=== PATIENT | male | born 1935 | race Caucasian/White ===

== ENCOUNTER 2016-06-16 14:48 | Inpatient (IN) | payer MEDICARE, MEDICAID ==
--- NOTE | 2016-06-16 15:10 | ED Physician Chart ---
Chief Complaint/HPI - Patient Information Date Seen:: 06/16/16 Time Seen:: 14:50 Chief Complaint:: Left 2nd Toe redness History of Present Illness:: onset for past several days of left 2nd toe swelling, pain, and erythema; pt has dementia and further hx is unable to be obtained from pt Allergies:: Allergies Allergy/AdvReac Type Severity Reaction Status Date / Time No Known Allergies Allergy Verified 11/29/15 23:28 Vitals:: Vital Signs - 8 hr 06/16/16 14:56 Temp 97.5 F HR 91 RR 19 BP 165/74 O2 Sat % 96 Historian:: Patient Review:: Nurse's Note Reviewed, EMS run form Reviewed, Transfer documents Reviewed Review of Systems - Review of Systems General/Constitutional: No fever, No chills, No weight loss, No weakness, No diaphoresis, No edema, No loss of appetite Skin: Skin lesions, No skin lesions, No rash, No bruising Head: No headache, No light-headedness Eyes: No loss of vision, No pain, No diplopia ENT: No earache, No nasal drainage, No sore throat, No tinnitus Neck: No neck pain, No swelling, No thyromegaly, No stiffness, No mass noted Cardio Vascular: No chest pain, No palpitations, No PND, No orthopnea, No edema Pulmonary: No SOB, No cough, No sputum, No wheezing GI: No nausea, No vomiting, No diarrhea, No pain, No melena, No hematochezia, No constipation, No hematemesis G/U: No dysuria, No frequency, No hematuria Musculoskeletal: No bone or joint pain, No back pain, Muscle pain, No muscle pain Endocrine: No polyuria, No polydipsia Psychiatric: No prior psych history, No depression, No anxiety, No suicidal ideation Hematopoietic: No bruising, No lymphadenopathy Allergic/Immuno: No urticaria, No angioedema Neurological: No syncope, No focal symptoms, Weakness, No weakness, No paresthesia, No headache, No seizure, No dizziness, Confusion, No confusion, No vertigo Past Medical History - Past Medical History Past Medical History: HTN, DM, Dyslipidemia, Dementia Family History: Diabetes Melitus, HTN Social History: Non Smoker, No Alcohol, No Drug Use, Care Facility Psychiatricy History: Dementia Medication: Reviewed Family Medical History - Family Member Mother History Unknown: Yes Ethnicity: Living Status: Still Living Hx Family Cancer: No Hx Family Coronary Artery Disease: No Hx Family Congestive Heart Failure: No Hx Family Hypertension: No Hx Family Stroke: No Hx Family Diabetes: No Hx Family Seizures: No Hx Family Dementia: No Hx Family AIDS: No Hx Family HIV: No Hx Family COPD: No Hx Family Hepatitis: No Hx Family Psychiatric Problems: No Hx Family Tuberculosis: No Physical Exam - Physical Examination General/Constitutional: Awake, Well-developed, well-nourished, Alert, No distress, GCS 15, Non-toxic appearing, Ambulatory Head: Atraumatic Eyes: Lids, conjuctiva normal, PERRL, EOMI Skin: Nl inspection, No rash, No skin lesions, No ecchymosis, Well hydrated, No lymphadenopathy Other Skin comments:: Left 2nd Toe localized cellulitis ENMT: External ears, nose nl, Nasal exam nl, Lips, teeth, gums nl Neck: Nontender, Full ROM w/o pain, No JVD, No nuchal rigidity, No bruit, No mass, No stridor Respiratory: Nl effort/Exclusion, Clear to Auscultation, No Wheeze/Rhonchi/Rales Cardio Vascular: RRR, No murmur, gallop, rubs, NL S1 S2 GI: No tenderness/rebounding/guarding, No organomegaly, No hernia, Normal BS's, Nondistended, No mass/bruits, No McBurney tenderness : No CVA tenderness Extremities: No tenderness or effusion, Full ROM, normal strength in all extremities, No edema, Normal digits & nails Neuro/Psych: Alert/oriented, DTR's symmetric, Normal sensory exam, Normal motor strength, Judgement/insight normal, Mood normal, Normal gait, No focal deficits Other Neuro/Psych comments:: confused with dementia Misc: normal gait, Normal back, No paraspinal tenderness ED Septic Shock - . Is Septic Shock (SBP<90, OR Lactate>4 mmol\L) present?: No - <6hrs of presentation: Vital Signs: Vital Signs - 8 hr 06/16/16 14:56 Temp 97.5 F HR 91 RR 19 BP 165/74 O2 Sat % 96 Assessment of Lungs: Lung CTA bilateral, Ventilator, Decreased BS, Rhonchi, No Rhonchi, Rales, No Rales, Wheezing, No Wheezing, Stridor, No Stridor, Other, Documented in PE Assessment of Heart: RRR, Thrill, No thrill, Gallops, No Gallops, S3, S4, Rub, No Rub, Murmur, No Murmur, Other, Documented in PE Capillary refill evaluation: Capillary refill < 2 secs, Capillary refill > 2 secs, Other, Documented in PE Skin Exam: Warm, Dry, Good Turgur, Poor Turgor, Pallor, No Pallor, Diaphoretic, No Diaphoresis, Mottled, No Mottling, Cyanotic, Edema, No Edema, Erythema, No Erythema, Other, Documented in PE Reassessment (Disposition) - Reassessment Reassessment Condition:: Improved - Diagnosis Diagnosis:: Cellulitis - Aftercare/Follow up Instructions Aftercare/Follow-Up Instructions:: Counseled pt regarding lab results/diagnosis & need follow up, Counseled pt & family regarding lab results/diagnosis & need follow up - Patient Disposition Discharge/Transfer:: Acute Care w/in this hosp Accepting Physician:: Dr. Santiago Time Called:: 1629 Time Responded:: 16:30 Admitted to:: Med/Surg Spoke to:: Dr. Santiago Condition at Disposition:: Stable, Improved
[2016-06-16] MEDS ORDERED: cefTRIAXone 1 GM in Sodium Chloride 0.9% 50 ML IV ONE (15:13)
[2016-06-16 15:37] LABS: % EOSINOPHILS 5.5 % (0.0-5.0); % MONOCYTES 5.5 % (2.0-10.0); HEMATOCRIT 42.5 % (39.0-49.0); HEMOGLOBIN 13.9 gm/dL (12.6-17.4); MEAN CELL VOLUME 81.5 fl (80-99); MEAN CORPUSCULAR HEMOGLOBIN 26.7 pg (27.0-31.0); MEAN CORPUSCULAR HGB CONC 32.8 pg (28.0-36.0); MEAN PLATELET VOLUME 7.9 fl; NEUTROPHILE ABSOLUTE 9.9 Th/cmm (1.8-8.0); PLATELET COUNT 249 Th/cmm (150-400); RED BLOOD COUNT 5.21 Mil/cmm (3.80-5.80); RED CELL DISTRIBUTION WIDTH 13.9 % (11.5-20.0)
[2016-06-16 15:46] LABS: WHITE BLOOD COUNT 13.2 Th/cmm (4.8-10.8)
[2016-06-16 16:05] LABS: ANION GAP 8.9 (7.0-16.0); BUN - UREA NITROGEN 27 mg/dL (7-25); BUN/CREATININE RATIO 15.9; CALCIUM SERUM 9.7 mg/dL (8.6-10.3); CARBON DIOXIDE 25.3 mEq/L (21.0-31.0); CHLORIDE 108 mEq/L (98-107); CREATININE - SERUM 1.7 mg/dL (0.7-1.3); GLUCOSE 105 mg/dL (70-105); POTASSIUM SERUM 5.2 mEq/L (3.5-5.1); SODIUM SERUM 137 mEq/L (136-145)
--- NOTE | 2016-06-16 21:17 | Admit Criteria Form ---
Admit Criteria Forms - Admit Criteria Diagnosis: CELLULITIS Clinical Indications for Admission to Inpatient Care (Place 'X' for any and all applicable criteria): Admission is indicated for ANY ONE of the following(1)(2)(3)(4)(5): [ ]I. Limb-threatening infection [ ]II. High-risk comorbid condition as indicated by ANY ONE of the following: [ ]a) Uncontrolled diabetes (eg, HbA1c greater than 10% (0.1)) [ ]b) Cirrhosis [ ]c) Neutropenia [ ]d) Asplenia [ ]e) Immunosuppression [ ]f) Symptomatic heart failure [ ]III. Failure of outpatient therapy as indicated by ALL of the following: [ ]a) Progression or no improvement after adequate trial (minimum of 48 hours, with longer period for stable lower extremity infection) [ ]b) Adequate antibiotic regimen as indicated by use of ANY ONE of the following: [ ]i) First-generation cephalosporin (e.g., cephalexin) [ ]ii) Antistaphylococcal penicillin (e.g., dicloxacillin) [ ]iii) Penicillin-allergic patient regimen (clindamycin, extended-spectrum fluoroquinolone, or doxycycline) [ ]iv) Resistant organism (eg, methicillin-resistant Staphylococcus aureus) regimen (6) [ ]c) Outpatient intravenous therapy regimen is not appropriate due to ANY ONE of the following. (7)(8)(9)(10): [ ]i) It was tried and was not successful (eg, progression of infection). [ ]ii) It is not available or cannot be arranged in a clinically appropriate time frame (e.g., the next day). [ ]iii) Clinical presentation (eg, acuity of infection, rapidity of progression, confirmed or suspected bacteremia) is judged to require ALL of the following: [ ]1) Immediate initiation of intravenous therapy ( eg, cannot wait for next day) [ ]2) Intensity of patient monitoring and observation (eg, vital sign measurement, checks for infection progression) that cannot be provided at other than inpatient level of care [ ]IV. Mental status changes [ ]V. Bacteremia [ ]. Hemodynamic instability [ ]VII. Suspected necrotizing soft tissue infection (e.g., gas in tissue)(11)( 12) [ ]VIII. Orbital infection (13)(14) [ ]IX. Associated surgical procedure (e.g., abscess drainage, debridement) not amenable to outpatient, emergency department, or observation care [ ]X. Cutaneous gangrene [ ]XI. High fever (temperature greater than 39.5 degrees C (103.1 degrees F) (oral)) not responsive to outpatient, emergency department, or observation care therapy [X]XIII. Inpatient admission required rather than observation care (Also use Cellulitis: Observation Care as appropriate) because of ANY ONE of the following : [ ]a) Periorbital or perineal infection that is severe or worsening [ ]b) Severe pain requiring acute inpatient management [ ]c) IV fluid to replace significant ongoing (e.g., for over 24 hours) losses (greater than 3L/m2 per day) [ ]d) Compartment syndrome monitoring (17) [ ]e) Strict or protective (eg, laminar flow) isolation [ ]f) Urgent debridement or skin grafting [ ]g) Bone or joint debridement [ ]h) Immediate inpatient surgery [X]i) Other condition, treatment or monitoring requiring inpatient admission Extended stay beyond goal length of stay may be needed for (1)(18): [ ]a) Necrotizing soft tissue infection or fasciitis [ ]b) Gram-negative infection [ ]c) Methicillin-resistant Staphylococcal aureus (MRSA) infection [ ]d) Peripheral venous insufficiency with cellulitis [ ]e) Extensive edema [ ]f) Sepsis or continued Hemodynamic instability [ ]g) Continued high fever or mental status change [ ]h) Bacteremia [ ]i) Active serious comorbid conditions ( eg, heart failure, renal insufficiency) The original [facility] [employer] content created by [employer] [facility] [employer] has been revised. The portions of the content which have been revised are identified through the use of italic text or in bold, and [facility] has neither reviewed nor approved the modified material. All other unmodified content is copyright [facility] Please see references footnoted in the original [facility] edition 2016 Admit Criteria Met?: Yes
[2016-06-16] MEDS ORDERED: Pneumococcal Vaccine 0.5 mL Vial IM ONE (22:20)
[2016-06-16] MEDS: INSULIN ASPART, RECOMBINANT 100 UNITS/ML SUBQ SCH (22:45)
[2016-06-16] MEDS ORDERED: Piperacillin Sodium/Tazobact 3.375 gm Vial IV ONE (22:58)
[2016-06-17] MEDS: INSULIN ASPART, RECOMBINANT 100 UNITS/ML SUBQ SCH ×4 (06:48→20:46)
[2016-06-17] MEDS ORDERED: MENTHOL TP PRN (07:25)
[2016-06-17] MEDS ORDERED: METHYL SALICYLATE TP PRN (07:25)
[2016-06-17 07:57] LABS: % BASOPHILS 0.5 % (0.0-2.0)
[2016-06-17 07:59] LABS: % EOSINOPHILS 5.4 % (0.0-5.0); % MONOCYTES 5.9 % (2.0-10.0); % NEUTROPHILS 71.2 % (40.0-80.0); HEMATOCRIT 40.6 % (39.0-49.0); HEMOGLOBIN 13.5 gm/dL (12.6-17.4); MEAN CELL VOLUME 80.5 fl (80-99); MEAN CORPUSCULAR HEMOGLOBIN 26.7 pg (27.0-31.0); MEAN CORPUSCULAR HGB CONC 33.1 pg (28.0-36.0); NEUTROPHILE ABSOLUTE 9.9 Th/cmm (1.8-8.0); PLATELET COUNT 254 Th/cmm (150-400); RED BLOOD COUNT 5.05 Mil/cmm (3.80-5.80); RED CELL DISTRIBUTION WIDTH 13.9 % (11.5-20.0)
[2016-06-17 08:13] LABS: ALB/GLOB RATIO 1.1 (1.0-1.8); ALKALINE PHOSPHATASE 99 U/L (34-104); ANION GAP 4.1 (7.0-16.0); BILIRUBIN,TOTAL 0.4 mg/dL (0.3-1.0); BUN - UREA NITROGEN 28 mg/dL (7-25); BUN/CREATININE RATIO 17.5; CALCIUM SERUM 9.4 mg/dL (8.6-10.3); CARBON DIOXIDE 23.8 mEq/L (21.0-31.0); CHLORIDE 112 mEq/L (98-107); CREATININE - SERUM 1.6 mg/dL (0.7-1.3); GLUCOSE 98 mg/dL (70-105); POTASSIUM SERUM 4.9 mEq/L (3.5-5.1); SGOT 14 U/L (13-39); SGPT/ALT 12 U/L (7-52); SODIUM SERUM 135 mEq/L (136-145)
[2016-06-17 08:16] LABS: WHITE BLOOD COUNT 13.8 Th/cmm (4.8-10.8)
[2016-06-17] MEDS ORDERED: PROSTAT PO SCH (09:00)
[2016-06-17] MEDS: Multivitamin w/ Minerals Tab PO SCH (09:08)
[2016-06-17] MEDS: Vancomycin HCl 1.5 GM in Sodium Chloride 0.9% 500 ML IV SCH (09:13)
--- NOTE | 2016-06-17 13:01 | Diagnostic Imaging Report ---
Bilateral upper extremity arterial Doppler study HISTORY: Peripheral vascular disease COMPARISON: None Technique: Longitudinal and transverse sonographic images of the bilateral upper extremity arteries were obtained with doppler analysis. FINDINGS: Exam of the right side demonstrates mild mild to moderate generalized atherosclerotic vascular disease. Primarily biphasic flow is seen throughout the right upper extremity. No evidence of decreased velocities. Exam of the left side demonstrates mild to moderate generalized atherosclerotic vascular disease. Primarily biphasic flow is noted throughout the left upper extremity. No evidence of decreased velocities. No evidence of occlusion. IMPRESSION: Mild to moderate bilateral upper extremity atherosclerotic vascular disease. No evidence of occlusion.
--- NOTE | 2016-06-17 13:56 | Infectious Disease Prog Note ---
Infectious Disease Subjective - Review of Systems Service Date: 06/17/16 Subjective: [id number] Infectious Disease Objective - Results Result Diagrams: 06/17/16 07:45 06/17/16 07:45 Recent Labs: Laboratory Last Values WBC 13.8 Th/cmm (4.8-10.8) H 06/17/16 07:45 RBC 5.05 Mil/cmm (3.80-5.80) 06/17/16 07:45 Hgb 13.5 gm/dL (12.6-17.4) 06/17/16 07:45 Hct 40.6 % (39.0-49.0) 06/17/16 07:45 MCV 80.5 fl (80-99) 06/17/16 07:45 MCH 26.7 pg (27.0-31.0) L 06/17/16 07:45 MCHC Differential 33.1 pg (28.0-36.0) 06/17/16 07:45 RDW 13.9 % (11.5-20.0) 06/17/16 07:45 Plt Count 254 Th/cmm (150-400) 06/17/16 07:45 MPV 8.0 fl 06/17/16 07:45 Neutrophils % 71.2 % (40.0-80.0) 06/17/16 07:45 Lymphocytes % 17.0 % (20.0-50.0) L 06/17/16 07:45 Monocytes % 5.9 % (2.0-10.0) 06/17/16 07:45 Eosinophils % 5.4 % (0.0-5.0) H 06/17/16 07:45 Basophils % 0.5 % (0.0-2.0) 06/17/16 07:45 Sodium 135 mEq/L (136-145) L 06/17/16 07:45 Potassium 4.9 mEq/L (3.5-5.1) 06/17/16 07:45 Chloride 112 mEq/L (98-107) H 06/17/16 07:45 Carbon Dioxide 23.8 mEq/L (21.0-31.0) 06/17/16 07:45 Anion Gap 4.1 (7.0-16.0) L 06/17/16 07:45 BUN 28 mg/dL (7-25) H 06/17/16 07:45 Creatinine 1.6 mg/dL (0.7-1.3) H 06/17/16 07:45 Est GFR ( Amer) TNP 06/17/16 07:45 Est GFR (Non-Af Amer) TNP 06/17/16 07:45 BUN/Creatinine Ratio 17.5 06/17/16 07:45 Glucose 98 mg/dL (70-105) 06/17/16 07:45 POC Glucose 86 MG/DL (70 - 105) 06/17/16 11:40 Calcium 9.4 mg/dL (8.6-10.3) 06/17/16 07:45 Total Bilirubin 0.4 mg/dL (0.3-1.0) 06/17/16 07:45 AST 14 U/L (13-39) 06/17/16 07:45 ALT 12 U/L (7-52) 06/17/16 07:45 Alkaline Phosphatase 99 U/L (34-104) 06/17/16 07:45 Total Protein 7.6 gm/dL (6.0-8.3) 06/17/16 07:45 Albumin 3.9 gm/dL (4.2-5.5) L 06/17/16 07:45 Globulin 3.7 gm/dL 06/17/16 07:45 Albumin/Globulin Ratio 1.1 (1.0-1.8) 06/17/16 07:45 - Physical Exam Vitals and I&O: Vital Signs Temp 97.7 F 06/17/16 08:00 Pulse 97 06/17/16 09:07 Resp 18 06/17/16 08:00 BP 161/81 06/17/16 09:07 Pulse Ox 97 06/17/16 08:00 Intake & Output 06/16/16 06/17/16 06/17/16 18:59 06:59 18:59 Intake Total 170 Balance 170 Weight (lbs) 81.647 kg Intake: Intake, IV Amount 50 Piperacillin Sodium/ 50 Tazobact 3.375 gm In Sodium Chloride 0.9% 50 ml @ 100 mls/hr IV Q8HR LIUDMILA Rx#:[id number] Oral 120 Other: # Voids 2 Active Medications: Current Medications Acetaminophen (Tylenol) 650 mg PO Q6H PRN PRN Reason: pain Stop: 08/16/16 07:24 Amlodipine Besylate (Norvasc) 5 mg PO DAILY LIUDMILA Stop: 08/16/16 08:59 Last Admin: 06/17/16 09:07 Dose: 5 mg Aspirin (Ecotrin) 81 mg PO DAILY LIUDMILA Stop: 08/16/16 08:59 Last Admin: 06/17/16 09:05 Dose: 81 mg Camphor/Menthol (Bengay Greaseless 10%-15%) 1 appl TP Q4H PRN PRN Reason: RIGHT KNEE PAIN Cholecalciferol (Vitamin D3) 5,000 iu PO DAILY LIUDMILA Stop: 08/16/16 08:59 Last Admin: 06/17/16 09:07 Dose: 5,000 iu Docusate Sodium (Colace) 100 mg PO DAILY LIUDMILA Stop: 08/16/16 08:59 Last Admin: 06/17/16 09:08 Dose: 100 mg Donepezil HCl (Aricept) 10 mg PO HS LIUDMILA Stop: 08/16/16 20:59 Famotidine (Pepcid) 20 mg PO BID LIUDMILA Stop: 08/16/16 08:59 Last Admin: 06/17/16 09:07 Dose: 20 mg Piperacillin Sod/Tazobactam (Sod 3.375 gm/ Sodium Chloride) 50 mls @ 100 mls/ hr IV Q8HR LIUDMILA Stop: 08/15/16 22:00 Last Admin: 06/17/16 06:00 Dose: 100 mls/hr Vancomycin HCl 1.5 gm/ Sodium (Chloride) 500 mls @ 250 mls/hr IV Q24H LIUDMILA Stop: 08/16/16 08:59 Last Admin: 06/17/16 09:13 Dose: 250 mls/hr Insulin Aspart (Novolog) 0 units SUBQ ACHS LIUDMILA PRN Reason: Protocol Stop: 08/15/16 22:14 Last Admin: 06/17/16 11:47 Dose: Not Given Lorazepam (Ativan) 0.5 mg PO Q6H PRN; Protocol PRN Reason: Anxiety Stop: 08/16/16 07:24 Lorazepam (Ativan) 1 mg PO DAILY LIUDMILA PRN Reason: Protocol Stop: 08/16/16 08:59 Memantine (Namenda) 10 mg PO BID LIUDMILA Stop: 08/16/16 08:59 Last Admin: 06/17/16 09:06 Dose: 10 mg Metoprolol Succinate (Toprol Xl) 25 mg PO DAILY [facility] Stop: 08/16/16 08:59 Last Admin: 06/17/16 09:06 Dose: 25 mg Miscellaneous (Vancomycin Iv Per Pharmacy) 1 ea MC PRN PRN PRN Reason: PROTOCOL Stop: 08/16/16 07:27 Quetiapine Fumarate (Seroquel) 50 mg PO DAILY LIUDMILA PRN Reason: Protocol Stop: 08/16/16 08:59 Quetiapine Fumarate (Seroquel) 100 mg PO HS LIUDMILA PRN Reason: Protocol Stop: 08/16/16 20:59 Simvastatin (Zocor) 10 mg PO HS LIUDMILA PRN Reason: Protocol Stop: 08/16/16 20:59 Sodium Chloride (Saline Flush) 10 ml IV QSHIFT [facility] Stop: 08/15/16 22:00 Last Admin: 06/17/16 09:08 Dose: 10 ml - Procedures Procedures: Procedures Procedure Code Date COLONOSCOPY AND BIOPSY 07360 12/02/14 EGD BIOPSY SINGLE/MULTIPLE 10493 12/02/14 EXCISION OF DUODENUM, ENDO, DIAGN [id number] 12/02/14 EXCISION OF ESOPHAGUS, ENDO, DIAGN [id number] 12/02/14 EXCISION OF RECTUM, ENDO, DIAGN [id number] 12/02/14 Infectious Disease Assmt/Plan - Problem List Patient Problems: All Active Problems LEFT #2 TOE ABRASION WITH REDNESS/SWELLI (Acute) Abdominal pain (Acute) R10.9 Hypertension (Acute) I10 Psychosis (Acute) F29 Rectal bleeding (Acute) K62.5 Stroke (Acute) I63.9 Nutritional Asmnt/Malnutr-PDOC - Dietary Evaluation Malnutrition Findings (Please click <Entered> for more info): Nutritional Asmnt/Malnutrition Start: 06/17/16 11: 05 Text: Status: Complete Freq: Document 06/17/16 11:05 GSUN (Rec: 06/17/16 11:20 [id number]) Nutritional Asmnt/Malnutrition Patient General Information Diagnosis ER: Cellulitis Pertinent Medical Hx/Surgical Hx ER: HTN, DM, dyslipidemia, dementia Subjective Information 80 year old male, admitted due to swollen erythema to toe. Ultrasound upper extremities during visit. Spoek to RN, RN stated pt ate 100% breakfast, good appetite, no difficulties noted. Clarified diet order [id number] vs. 1800kcal ADA with RN. Pt appeared more than 180lb. Current Diet Order/ Nutrition Support [id number], 1800kcal ADA Pertinent Medications Vitamin D3, Colace, Pepcid, Novolog, Vancomycin, Seroquel Pertinent Labs 06/16: potassium 5.2H, BUN 27H, creaitnine 1.7H 06/17: BUN 28H, creatiine 1.6H Nutritional Hx/Data Height 1.78 m Height (Calculated Centimeters) 177.8 Current Weight (lbs) 81.647 kg Weight (Calculated Kilograms) 81.6 Weight (Calculated Grams) 60640.6 [place] Body Weight 166lb/75.5kg Weight Status Approriate GI Symptoms Food Allergies No Skin Integrity/Comment: Martin 15. Skin intact. Current %PO Good (75-100%) Estimated Nutritional Goals Calories/Kcals/Kg IBW 166lb/75.5kg Kcals Calculated 1888-2265kcal (25-30kcal/kg) Protein g/kg: IBW Protein Calculated 60-76g (0.8-1g/kg, monitor renal lab) Fluid: ml 1888-2265ml (1ml/kcal) Nutritional Problem 1. Problem Problem Inadequate carbohdyrate intake related to Etiology estimated nutritional needs aeb Signs/Symptoms: [id number] is inadequate to meet 100% of estimated nutritional needs Intervention/Recommendation Comments 1. Recommend [id number] instead of [id number], current diet order is inadeaute provide to meet 100% of estimated nutritional needs. 2. Monitor renal labs, low sodium diet if needed. Expected Outcomes/Goals Expected Outcomes/Goals 1. PO intake to meet at least 75% of esimtated nutritional needs.
--- NOTE | 2016-06-17 15:32 | Diagnostic Imaging Report ---
Left lower extremity arterial Doppler study HISTORY: Pain COMPARISON: None Technique: Longitudinal and transverse sonographic images of the left lower extremity arteries were obtained with doppler analysis. FINDINGS: Exam of the left side demonstrates generalized atherosclerotic vascular disease with generalized loss of the triphasic flow noted. Decreased velocity is seen distally along the tibialis anterior and tibialis posterior arteries most decreased in the tibialis anterior artery at 21 cm/second. Left ankle-brachial index is 0.56. IMPRESSION: Findings suggestive of diffuse left lower extremity atherosclerotic vascular disease. No sonographic evidence of occlusion. If indicated, CT angiogram the left lower extremity may also be obtained for further assessment. Left ankle-brachial index is 0.56.
--- NOTE | 2016-06-17 20:53 | History & Physical ---
ADMIT DATE: 06/17/2016 PATIENT IDENTIFICATION: This is an 80-year-old male. CHIEF COMPLAINT: Sent the patient to Emergency Room for evaluation of second left toe open wound and cellulitis. HISTORY OF PRESENT ILLNESS: This is an 80-year-old [place] male who resides at [facility] under my care along with the psychiatrist, Dr. Carrasco and associates, who has medical problems of diabetes, hypertension, hyperlipidemia, DJD, and psychotic disorder. During his regular evaluation, it was noted that the patient's left second toe had an open wound, which was treated conservatively, but subsequently, his wound got bigger and it became more painful, and the patient was agitated. The patient was sent to Emergency Room. The patient was seen by Emergency Room MD and has been advised to be admitted for diagnosis of left ____ second toe cellulitis and infected open wound. The patient has dementia and does not provide a meaningful history. PAST MEDICAL HISTORY: Remarkable for dementia, hypertension, hyperlipidemia, DJD, psychotic disorder, and diet-controlled diabetes mellitus. MEDICATION: List has been reviewed and reconciled appropriately. ALLERGIES: The patient is not allergic to medication. SOCIAL HISTORY: He lives in a retirement. No smoking cigarette, alcohol or drug use. FAMILY MEDICAL HISTORY: Unavailable. REVIEW OF SYSTEMS: Unable to obtain meaningful history from the patient. PHYSICAL EXAMINATION: GENERAL: The patient is alert, awake, lying in the bed, follow 1-step command without any acute distress. VITAL SIGNS: Temperature 98.2, pulse is 97, respiratory rate is 18, and blood pressure 160/80. HEENT: Normocephalic and atraumatic. Extraocular muscles are intact. Tongue was pink and coated. Poor dentition is noted. No oral lesions, no exudate. NECK: Supple. No JVD. No hepatojugular reflex. No lymphadenopathy, thyromegaly, or carotid bruit. HEART: Both heart sounds are regular. No S3, no S4, and no murmur. CHEST/LUNGS: Equal in expansion, no wheezing, no crackles. ABDOMEN: Soft. No guarding. No rigidity. Liver and spleen not palpable. No palpable mass. EXTREMITIES: Remarkable for peripheral pulses +1. No calf tenderness noted. There is a left second toe swelling noted with significant amount of erythema, and open wound noted. BACK: No crackles and scoliosis. NEUROLOGIC: Alert, awake, follows commands. There was otherwise gross dementia noted and moving his upper and lower extremities. AVAILABLE DIAGNOSTIC DATA: White count of 13.2, hemoglobin 13.9, platelet count of 249,000. BUN and creatinine are 27 and 1.7, potassium 5.2, chloride 108, sodium 137, glucose of 105 noted. Blood cultures were negative. Lower extremity arterial Doppler studies were also ordered by me prior to coming to see him, which did reveal the patient had diffuse left lower extremity atherosclerotic vascular disease, but no significant stenosis noted. Left ankle-brachial index was 0.56. CLINICAL IMPRESSION: 1. Left second toe open wound and cellulitis. 2. Peripheral vascular disease. 3. Acute kidney injury. 4. Hyperkalemia. 5. Hypertension. 6. Hyperlipidemia. 7. Degenerative joint disease. 8. Alzheimer's type dementia. 9. Diet-controlled diabetes mellitus. PLAN: Admit this patient to Med/Surg floor for now. IV antibiotic will be started. Infectious Disease consultation was requested. Appropriate home medicine will be given. IV fluid will be given. Followup lab will be done, and we will follow the consult recommendations. Care plan has been reviewed and discussed with the patient and staff. JOB# [id number]
--- NOTE | 2016-06-17 23:11 | Consultation ---
DATE OF CONSULTATION: 06/17/2016 REFERRING PHYSICIAN: Dr. Santiago. REASON FOR CONSULTATION: Leukocytosis and the left toe cellulitis. HISTORY OF PRESENT ILLNESS: The patient is an 86-year-old male with a past medical history of diabetes mellitus type 2, hypertension, dyslipidemia, dementia, brought to the ER yesterday for painful swelling and redness of second toe of the left foot. On initial evaluation, the patient's temperature 97.5 degree F and WBC count was 13,000. The patient was started on vancomycin and Zosyn and ID consult was called for further antibiotic management. PAST MEDICAL HISTORY: Includes diabetes mellitus type 2, hypertension, dementia, dyslipidemia. FAMILY HISTORY: Diabetes mellitus, hypertension. SOCIAL HISTORY: The patient is nonsmoker. Has no history of alcohol, no history of drug use. The patient lives at care facility. PSYCHIATRIC HISTORY: Dementia. ALLERGIES: NKDA. MEDICATIONS: Per medication reconciliation sheet. Antibiotic borges, the patient is on vancomycin and Zosyn. REVIEW OF SYSTEMS: GENERAL: The patient denies any fever or chills. HEENT: The patient denies any diplopia, photophobia, sore throat. RESPIRATORY: Denies any cough or shortness of breath. CARDIOVASCULAR: Denies any chest pain or palpitation. GASTROINTESTINAL: The patient denies any nausea, vomiting, diarrhea or constipation. GENITOURINARY: The patient denies any dysuria. The patient denies any hematuria. CENTRAL NERVOUS SYSTEM: No headache, no dizziness, no focal weakness. No seizure episode. SKIN: The patient has swelling, redness of, and tenderness of the second toe of the left foot. PHYSICAL EXAMINATION: VITAL SIGNS: Current, show temperature 97.7, pulse 97, respirations 18, blood pressure 161/81. GENERAL: The patient is comfortable, lying in the bed, not in acute distress. HEENT: Head is normocephalic, atraumatic. Oral cavity moist, pink tongue. Eyes: No pallor, no icterus. PERRLA, EOMI. NECK: Supple, no JVD, no carotid bruit. Trachea in midline. CHEST: Bilateral breath sounds. No crackles or wheezing. CARDIOVASCULAR: S1, S2 within normal limits. Regular rhythm. No murmur, no gallop. ABDOMEN: Soft, nontender, nondistended. Bowel sounds present. EXTREMITIES: No cyanosis, no clubbing, no edema. The patient has swelling of the left forefoot with associated redness and tender swelling of the left second toe. At the dorsal aspect, the patient has healed wound. CENTRAL NERVOUS SYSTEM: Alert, awake, oriented x 3. LABORATORY DATA: Current lab shows WBC count is 13,800, hemoglobin is 13.5, hematocrit 40.6, platelets are 254,000, neutrophil is 71.2%. Sodium 135, potassium 4.9, chloride 112, bicarbonate is 24, BUN is 28, creatinine 1.6, glucose is 88. Blood cultures so far negative. Recommendation: continue on vancomycin and Zosyn. IMPRESSION: 1. Leukocytosis, suspect sepsis. 2. Left foot and second toe cellulitis. 3. Diabetes mellitus type 2. 4. Hypertension. 5. Dementia. Thank you, Dr. Mario Alberto Santiago, for involving me in taking care of this patient. JOB# [id number] MTDD
[2016-06-18] MEDS: INSULIN ASPART, RECOMBINANT 100 UNITS/ML SUBQ SCH ×3 (06:36→17:13)
[2016-06-18] MEDS: Multivitamin w/ Minerals Tab PO SCH (09:15)
[2016-06-18] MEDS: Vancomycin HCl 1.5 GM in Sodium Chloride 0.9% 500 ML IV SCH (09:36)
--- NOTE | 2016-06-18 12:43 | Infectious Disease Prog Note ---
Infectious Disease Subjective - Review of Systems Service Date: 06/18/16 Subjective: Patient is refusing IV access. Infectious Disease Objective - Results Result Diagrams: 06/17/16 07:45 06/17/16 07:45 Recent Labs: Laboratory Last Values WBC 13.8 Th/cmm (4.8-10.8) H 06/17/16 07:45 RBC 5.05 Mil/cmm (3.80-5.80) 06/17/16 07:45 Hgb 13.5 gm/dL (12.6-17.4) 06/17/16 07:45 Hct 40.6 % (39.0-49.0) 06/17/16 07:45 MCV 80.5 fl (80-99) 06/17/16 07:45 MCH 26.7 pg (27.0-31.0) L 06/17/16 07:45 MCHC Differential 33.1 pg (28.0-36.0) 06/17/16 07:45 RDW 13.9 % (11.5-20.0) 06/17/16 07:45 Plt Count 254 Th/cmm (150-400) 06/17/16 07:45 MPV 8.0 fl 06/17/16 07:45 Neutrophils % 71.2 % (40.0-80.0) 06/17/16 07:45 Lymphocytes % 17.0 % (20.0-50.0) L 06/17/16 07:45 Monocytes % 5.9 % (2.0-10.0) 06/17/16 07:45 Eosinophils % 5.4 % (0.0-5.0) H 06/17/16 07:45 Basophils % 0.5 % (0.0-2.0) 06/17/16 07:45 Sodium 135 mEq/L (136-145) L 06/17/16 07:45 Potassium 4.9 mEq/L (3.5-5.1) 06/17/16 07:45 Chloride 112 mEq/L (98-107) H 06/17/16 07:45 Carbon Dioxide 23.8 mEq/L (21.0-31.0) 06/17/16 07:45 Anion Gap 4.1 (7.0-16.0) L 06/17/16 07:45 BUN 28 mg/dL (7-25) H 06/17/16 07:45 Creatinine 1.6 mg/dL (0.7-1.3) H 06/17/16 07:45 Est GFR ( Amer) TNP 06/17/16 07:45 Est GFR (Non-Af Amer) TNP 06/17/16 07:45 BUN/Creatinine Ratio 17.5 06/17/16 07:45 Glucose 98 mg/dL (70-105) 06/17/16 07:45 POC Glucose 122 MG/DL (70 - 105) H 06/18/16 06:34 Calcium 9.4 mg/dL (8.6-10.3) 06/17/16 07:45 Total Bilirubin 0.4 mg/dL (0.3-1.0) 06/17/16 07:45 AST 14 U/L (13-39) 06/17/16 07:45 ALT 12 U/L (7-52) 06/17/16 07:45 Alkaline Phosphatase 99 U/L (34-104) 06/17/16 07:45 Total Protein 7.6 gm/dL (6.0-8.3) 06/17/16 07:45 Albumin 3.9 gm/dL (4.2-5.5) L 06/17/16 07:45 Globulin 3.7 gm/dL 06/17/16 07:45 Albumin/Globulin Ratio 1.1 (1.0-1.8) 06/17/16 07:45 - Physical Exam Vitals and I&O: Vital Signs Temp 97.6 F 06/18/16 12:00 Pulse 81 06/18/16 12:00 Resp 18 06/18/16 12:00 BP 125/59 06/18/16 12:00 Pulse Ox 96 06/18/16 12:00 Intake & Output 06/17/16 06/18/16 06/18/16 18:59 06:59 18:59 Intake Total 1000 50 Balance 1000 50 Intake: Intake, IV Amount 550 50 Piperacillin Sodium/ 50 50 Tazobact 3.375 gm In Sodium Chloride 0.9% 50 ml @ 100 mls/hr IV Q8HR [facility] Rx#:[id number] Vancomycin HCl 1.5 gm In 500 Sodium Chloride 0.9% 500 ml @ 250 mls/hr IV Q24H [facility]UD[facility] Rx#:[id number] Oral 450 Other: # Voids 2 # Bowel Movements 1 Active Medications: Current Medications Acetaminophen (Tylenol) 650 mg PO Q6H PRN PRN Reason: pain Stop: 08/16/16 07:24 Last Admin: 06/17/16 20:36 Dose: 650 mg Amlodipine Besylate (Norvasc) 5 mg PO DAILY [facility] Stop: 08/16/16 08:59 Last Admin: 06/18/16 09:15 Dose: 5 mg Aspirin (Ecotrin) 81 mg PO DAILY [facility] Stop: 08/16/16 08:59 Last Admin: 06/18/16 09:17 Dose: 81 mg Camphor/Menthol (Bengay Greaseless 10%-15%) 1 appl TP Q4H PRN PRN Reason: RIGHT KNEE PAIN Cholecalciferol (Vitamin D3) 5,000 iu PO DAILY [facility] Stop: 08/16/16 08:59 Last Admin: 06/18/16 09:16 Dose: 5,000 iu Clonidine HCl (Catapres) 0.1 mg PO Q8HR PRN PRN Reason: systolic bp above 160 Stop: 08/16/16 17:38 Last Admin: 06/17/16 18:19 Dose: 0.1 mg Docusate Sodium (Colace) 100 mg PO DAILY [facility] Stop: 08/16/16 08:59 Last Admin: 06/18/16 09:17 Dose: 100 mg Donepezil HCl (Aricept) 10 mg PO HS [facility] Stop: 08/16/16 20:59 Last Admin: 06/17/16 20:37 Dose: 10 mg Famotidine (Pepcid) 20 mg PO BID [facility] Stop: 08/16/16 08:59 Last Admin: 06/18/16 09:17 Dose: 20 mg Piperacillin Sod/Tazobactam (Sod 3.375 gm/ Sodium Chloride) 50 mls @ 100 mls/ hr IV Q8HR [facility] Stop: 08/15/16 22:00 Last Admin: 06/18/16 04:49 Dose: 100 mls/hr Vancomycin HCl 1.5 gm/ Sodium (Chloride) 500 mls @ 250 mls/hr IV Q24H [facility] Stop: 08/16/16 08:59 Last Admin: 06/18/16 09:36 Dose: Not Given Insulin Aspart (Novolog) 0 units SUBQ ACHS [facility] PRN Reason: Protocol Stop: 08/15/16 22:14 Last Admin: 06/18/16 10:54 Dose: Not Given Lorazepam (Ativan) 0.5 mg PO Q6H PRN; Protocol PRN Reason: Anxiety Stop: 08/16/16 07:24 Lorazepam (Ativan) 1 mg PO DAILY [facility] PRN Reason: Protocol Stop: 08/16/16 08:59 Last Admin: 06/18/16 09:15 Dose: 1 mg Memantine (Namenda) 10 mg PO BID [facility] Stop: 08/16/16 08:59 Last Admin: 06/18/16 09:15 Dose: 10 mg Metoprolol Succinate (Toprol Xl) 25 mg PO DAILY [facility] Stop: 08/16/16 08:59 Last Admin: 06/18/16 09:17 Dose: 25 mg Miscellaneous (Vancomycin Iv Per Pharmacy) 1 ea MC PRN PRN PRN Reason: PROTOCOL Stop: 08/16/16 07:27 Quetiapine Fumarate (Seroquel) 50 mg PO DAILY [facility] PRN Reason: Protocol Stop: 08/16/16 08:59 Last Admin: 06/18/16 09:17 Dose: 50 mg Quetiapine Fumarate (Seroquel) 100 mg PO HS [facility] PRN Reason: Protocol Stop: 08/16/16 20:59 Last Admin: 06/17/16 20:37 Dose: 100 mg Simvastatin (Zocor) 10 mg PO HS [facility] PRN Reason: Protocol Stop: 08/16/16 20:59 Last Admin: 06/17/16 20:37 Dose: 10 mg Sodium Chloride (Saline Flush) 10 ml IV QSHIFT [facility] Stop: 08/15/16 22:00 Last Admin: 06/18/16 09:38 Dose: Not Given General: no acute distress, well developed, well nourished HEENT: atraumatic, normocephalic, PERRLA, EOMI Neck: supple Cardiovascular: S1S2, regular Lungs: clear to auscultation bilaterally, clear to percussion Abdomen: soft, no tender, no distended Extremities: other (2nd left foot swelling is imrpoving), no cyanosis, no clubbing, no edema Neurological: awake, alert, oriented, CN 2-12 intact - Procedures Procedures: Procedures Procedure Code Date COLONOSCOPY AND BIOPSY 90756 12/02/14 EGD BIOPSY SINGLE/MULTIPLE 78583 12/02/14 EXCISION OF DUODENUM, ENDO, DIAGN [id number] 12/02/14 EXCISION OF ESOPHAGUS, ENDO, DIAGN [id number] 12/02/14 EXCISION OF RECTUM, ENDO, DIAGN [id number] 12/02/14 Infectious Disease Assmt/Plan - Problem List Patient Problems: All Active Problems LEFT #2 TOE ABRASION WITH REDNESS/SWELLI (Acute) Abdominal pain (Acute) R10.9 Hypertension (Acute) I10 Psychosis (Acute) F29 Rectal bleeding (Acute) K62.5 Stroke (Acute) I63.9 - Assessment Assessment: 1. cellulitis of the left foot. 2. PAD. 3. Dementia. 4. Non compliance. - Plan Plan: will change antibiotics to po clinda and levaquin for 2 weeks, as patient is refusing IV antibiotics. Nutritional Asmnt/Malnutr-PDOC - Dietary Evaluation Malnutrition Findings (Please click <Entered> for more info): Nutritional Asmnt/Malnutrition Start: 06/17/16 11: 05 Text: Status: Complete Freq: Document 06/17/16 11:05 UN (Rec: 06/17/16 11:20 [facility] [id number]) Nutritional Asmnt/Malnutrition Patient General Information Diagnosis ER: Cellulitis Pertinent Medical Hx/Surgical Hx ER: HTN, DM, dyslipidemia, dementia Subjective Information 80 year old male, admitted due to swollen erythema to toe. Ultrasound upper extremities during visit. Spoek to RN, RN stated pt ate 100% breakfast, good appetite, no difficulties noted. Clarified diet order [id number] vs. 1800kcal ADA with RN. Pt appeared more than 180lb. Current Diet Order/ Nutrition Support [id number], 1800kcal ADA Pertinent Medications Vitamin D3, Colace, Pepcid, Novolog, Vancomycin, Seroquel Pertinent Labs 06/16: potassium 5.2H, BUN 27H, creaitnine 1.7H 06/17: BUN 28H, creatiine 1.6H Nutritional Hx/Data Height 1.78 m Height (Calculated Centimeters) 177.8 Current Weight (lbs) 81.647 kg Weight (Calculated Kilograms) 81.6 Weight (Calculated Grams) 60623.6 [place] Body Weight 166lb/75.5kg Weight Status Approriate GI Symptoms Food Allergies No Skin Integrity/Comment: Martin 15. Skin intact. Current %PO Good (75-100%) Estimated Nutritional Goals Calories/Kcals/Kg IBW 166lb/75.5kg Kcals Calculated 1888-2265kcal (25-30kcal/kg) Protein g/kg: IBW Protein Calculated 60-76g (0.8-1g/kg, monitor renal lab) Fluid: ml 1888-2265ml (1ml/kcal) Nutritional Problem 1. Problem Problem Inadequate carbohdyrate intake related to Etiology estimated nutritional needs aeb Signs/Symptoms: [id number] is inadequate to meet 100% of estimated nutritional needs Intervention/Recommendation Comments 1. Recommend [id number] instead of [id number], current diet order is inadeaute provide to meet 100% of estimated nutritional needs. 2. Monitor renal labs, low sodium diet if needed. Expected Outcomes/Goals Expected Outcomes/Goals 1. PO intake to meet at least 75% of esimtated nutritional needs.
--- NOTE | 2016-06-19 04:12 | Consultation ---
DATE OF CONSULTATION: 06/18/2016 IDENTIFYING INFORMATION: The patient is an 80-year-old male. REASON FOR CONSULTATION: The patient has been agitated, throwing items, uncooperative. The patient himself was a poor historian. He was admitted because of infection. He was unable to tell me the reason he is here. He knew, however, this is June 2016. He reports he is and has three adult girls. He denies any intent to harm himself or anybody. He denies any hallucination or paranoia; however, he is not a reliable historian. PAST PSYCHIATRIC HISTORY: He reports that he was seen by a psychiatrist before; however, he was unable to explain why. He was unable to tell me if he tried to harm himself in the past. He has been on Aricept 10 mg a day, Namenda 10 mg twice a day, and Seroquel 50 mg in the morning and 100 mg at bedtime. MEDICAL HISTORY: Deferred to the medical doctor. FAMILY AND SOCIAL HISTORY: The patient reported he is . He has three adult girls. He has high school education, unable to tell me what job he did. He said he came from group home, but when I checked with the staff, nobody was able to tell me exactly where he came from. Some people say, he came from home. He was unable to give me further information. MENTAL STATUS EXAMINATION: The patient is appropriately dressed, not well groomed. He was alert. He believes he is 81, in reality he is 80. He knew that this is June and that is 2016, but not the exact date. He believes this is Wednesday. He denies any intent to harm himself or anybody or any hallucinations, but he was acting aggressive. He asked the staff for a paper and then threw a pen at them. His long memory is good. He knows his age roughly. Recent memory is poor. He does not know why he is here. Insight and judgment impaired. IMPRESSION: AXIS I: Psychosis, not otherwise specified, dementia. MEDICAL DIAGNOSES: Refer to Dr. Santiago. I would recommend to the patient ____ to transfer to [facility] when medically cleared. Thank you very much for allowing me to participate in the care of this most interesting gentleman. JOB# [id number]
== END 2016-06-18 17:50 | DRG 602 ==
LOC: ER 14:48 → MSI 18:05
PROVIDERS: ADMIT Internal Medicine; ATTEND Internal Medicine
DX: L03.032 Cellulitis of left toe (principal); N17.0 Acute kidney failure with tubular necrosis; N17.9 Acute kidney failure, unspecified; E87.5 Hyperkalemia; E11.51 Type 2 diabetes mellitus with diabetic peripheral angiopathy without gangrene; S91.109A Unspecified open wound of unspecified toe(s) without damage to nail, initial encounter; G30.9 Alzheimer's disease, unspecified; F02.80 Dementia in other diseases classified elsewhere, unspecified severity, without behavioral disturbance, psychotic disturbance, mood disturbance, and anxiety; I10 Essential (primary) hypertension; E78.5 Hyperlipidemia, unspecified; M19.90 Unspecified osteoarthritis, unspecified site; F29 Unspecified psychosis not due to a substance or known physiological condition; N40.0 Benign prostatic hyperplasia without lower urinary tract symptoms; Z83.3 Family history of diabetes mellitus; Z82.49 Family history of ischemic heart disease and other diseases of the circulatory system; Z91.14 Patient's other noncompliance with medication regimen
CPT/HCPCS: 36415-UA; 80048-TC; 80053-TC; 82948-90; 85025-TC; 93926-LT-TC; 93930-50-TC; J0696; J1815; J2543; J3370; J7040; Z7610

== ENCOUNTER 2016-06-18 17:55 | Inpatient (IN) | payer MEDICARE, MEDICAID ==
[2016-06-18] MEDS ORDERED: Haloperidol Lactate 5 mg/mL 1mL Vial ONE (18:23)
[2016-06-18] MEDS ORDERED: Haloperidol Lactate 5 mg/mL 1mL Vial IM ONE (18:24)
[2016-06-18 18:58] VITALS: BP 137/74
[2016-06-18] MEDS ORDERED: MENTHOL TP PRN ×2 (19:58→20:56)
[2016-06-18] MEDS ORDERED: METHYL SALICYLATE TP PRN (20:56)
[2016-06-18] MEDS ORDERED: Non-Formulary Item 1 EA (Melatonin [Melatonin] 3 MG) PO SCH (21:00)
[2016-06-18] MEDS: INSULIN ASPART, RECOMBINANT 100 UNITS/ML SUBQ SCH (21:00)
[2016-06-19] MEDS: INSULIN ASPART, RECOMBINANT 100 UNITS/ML SUBQ SCH ×4 (06:30→20:52)
[2016-06-19] MEDS ORDERED: PROSTAT PO SCH (09:00)
--- NOTE | 2016-06-19 14:50 | History & Physical ---
ADMIT DATE: 06/18/2016 CHIEF COMPLAINT: "They brought me here." HISTORY OF PRESENT ILLNESS: An 80-year-old -[place] male admitted by me to medical site for evaluation and management of his left second toe open wound and cellulitis. The patient was getting other medications for his underlying illness. The patient was noted to have an acute onset of agitation and aggressive behavior. The patient was refusing medications as well. The patient was seen by psychiatrist and recommended the patient should be admitted to Geriatric Psychiatric Unit for further management. PAST MEDICAL HISTORY: Remarkable for: 1. Dementia. 2. Psychotic disorder. 3. Hypertension. 4. Hyperlipidemia. 5. DJD. 6. Diet controlled diabetes mellitus. MEDICATIONS AT HOME: List has been reviewed and reconciled appropriately. ALLERGIES: None. SOCIAL HISTORY: Lives in [place] [facility] [place]. No smoking cigarette, alcohol or drug use. FAMILY MEDICAL HISTORY: Negative for diabetes and hypertension. REVIEW OF SYSTEMS: A 14-point review of system, ____ all review of systems as per patient are negative. PHYSICAL EXAMINATION: GENERAL: The patient is alert, awake, lying in the bed without any acute distress. VITAL SIGNS: Temperature 97, pulse is 100, respiratory rate 18, blood pressure is 136/76. SKIN: Warm to touch. HEENT: Normocephalic, atraumatic. Extraocular muscles are intact. Tongue was pink and coated. Poor dentition noted. No oral lesions. NECK: Supple, no JVD, no hepatojugular reflux. No lymphadenopathy, thyromegaly or carotid bruit. HEART: Both heart sounds are regular. CHEST: Lung equal in expansion, no wheezing, no crackles. ABDOMEN: Soft. No guarding, no rigidity. Liver, spleen not palpable. No palpable mass. Bowel sounds are present. EXTREMITIES: No edema. Peripheral pulses +1. Left second toe has swelling, which is decreased in size. The open wound is slightly ____ noted. No cyanosis, no clubbing. AVAILABLE LABORATORY DATA: MAR has been reviewed. CLINICAL IMPRESSION: 1. Left second toe cellulitis and open wound, resolving. 2. Peripheral vascular disease. 3. Psychotic disorder. 4. Hypertension. 5 Hyperlipidemia. 6 Degenerative joint disease. PLAN: 1. Admit this patient to the psych unit. 2. Continue medical management for the medical illness. 3. Fall precautions. 4. Wound care. 5. General nursing care. 6. We will continue to follow this patient at the Geropsych Unit. 7. PO antibiotic to be continued as well. [facility]# [id number]
[2016-06-19] MEDS: Multivitamin w/ Minerals Tab PO SCH (18:04)
--- NOTE | 2016-06-20 06:27 | Progress Notes ---
DATE: 06/19/2016 IDENTIFYING INFORMATION: The patient is an 80-year-old male. REASON FOR ADMISSION: The patient was transferred from the medical floor because of aggressive behavior. HISTORY OF PRESENT ILLNESS: I have seen the patient yesterday and I counseled over on the medical floor. The staff told me that he was acting aggressive. He was hard to redirect. When I talked to the patient myself, he was able to tell me his age as being 81 and he knew this is June 2016. However, he was unable to be more specific about other details. He agrees that he was seen by Psychiatry, unable to give details. He was diagnosed with dementia. He denies that he wanted to harm himself or anyone. However, the staff reported he was very aggressive, needing redirection, and was transferred to the Psychiatric Unit. PAST PSYCHIATRIC HISTORY: Some mental illness, he is not aware of. MEDICAL HISTORY: He has no known drug allergies. He has been on Aricept 10 mg at bedtime, clindamycin, aspirin, and Pepcid. He was given Haldol yesterday because of agitation. He is on Levaquin and Namenda 10 mg twice a day, Seroquel 50 mg daily and 100 mg at bedtime, simvastatin, amlodipine, clonidine, and diphenhydramine. FAMILY AND SOCIAL HISTORY: The patient is . He has three girls, however, unable to tell me the ages. He was unable to tell me what he did for living. He said he used to drink alcohol, but not recently. He was unable to tell me if there is any family psychotic disorder or substance abuse and how far he went in school and what he did for living. MENTAL STATUS EXAMINATION: The patient was appropriately dressed, not very well groomed. He was easily agitated. He was, however, able to remember me. He was alert. He knew this is June,, not sure of the exact date. He was able to tell me his date of . He seems to have short-term memory, unable to remember events that I am coming here. He seems to have his long-term ____ date of , roughly his age. He has been acting agitated, irritable; however, he denies any auditory or visual hallucination; however, he is an unreliable historian. His insight and judgment are impaired. IMPRESSION: AXIS I: Psychosis, not otherwise specified, dementia. MEDICAL DIAGNOSES: Hypertension, diabetes mellitus, and hyperlipidemia. His assets he is accepting treatment and negative poor coping skills and judgment. The patient will be started back on his medication. We will adjust medication as needed. We will do group therapy, milieu therapy, and individual therapy. ESTIMATED LENGTH OF STAY: 6-7 days. DISCHARGE CRITERIA: Decreased psychosis, agitation. After discharge, outpatient. JOB# [id number]
[2016-06-20] MEDS: INSULIN ASPART, RECOMBINANT 100 UNITS/ML SUBQ SCH ×4 (06:40→20:07)
[2016-06-20] MEDS: Multivitamin w/ Minerals Tab PO SCH (08:28)
--- NOTE | 2016-06-20 23:50 | Progress Notes ---
DATE: 06/20/2016 Case was discussed with staff of the patient, reviewed records. Covering for Dr. Carrasco. The patient continues to have episodes of agitation and irritability. He is demented, confused and unable to make safe plan for self care. He has been so far compliant with the medication with no side effects, no sedation, no nausea and no extrapyramidal symptoms. We will continue to work with the patient in group therapy, milieu therapy and adjust medication as needed. JOB# [id number]
[2016-06-21] MEDS: INSULIN ASPART, RECOMBINANT 100 UNITS/ML SUBQ SCH ×4 (06:35→20:51)
[2016-06-21] MEDS: Multivitamin w/ Minerals Tab PO SCH (08:16)
--- NOTE | 2016-06-22 04:52 | Progress Notes ---
DATE: 06/21/2016 Case was discussed with staff of the patient. The patient continues to be confused, easily agitated, demented, unable to participate in a meaningful conversation. We will make safe plan for self-care. He continues to have poor insight, needing redirection. No side effects with the medication, no sedation, no nausea and no extrapyramidal symptoms and we will continue to work with the patient in group therapy, milieu therapy and adjust the medication as needed. JOB# [id number]
[2016-06-22] MEDS: INSULIN ASPART, RECOMBINANT 100 UNITS/ML SUBQ SCH ×3 (06:45→20:52)
[2016-06-22] MEDS: Multivitamin w/ Minerals Tab PO SCH (08:40)
--- NOTE | 2016-06-22 09:31 | General Progress Note ---
Subjective - Review of Systems Subjective: PATIENT IS SEEN AND EXAMINED. UNABLE TO GET MEANINGFUL HISTORY. CHART REVIEWED. DISCUSSED WITH STAFF RE:THEIR CONCERNS. Objective - Results Recent Labs: Laboratory Last Values POC Glucose 88 MG/DL (70 - 105) 06/22/16 06:18 - Physical Exam Vitals and I&O: Vital Signs Temp 98.1 F 06/22/16 06:04 Pulse 75 06/22/16 08:41 Resp 18 06/22/16 06:04 BP 167/67 06/22/16 08:41 Pulse Ox 96 06/22/16 06:04 Intake & Output 06/21/16 06/22/16 06/22/16 18:59 06:59 18:59 Intake Total 1000 240 Balance 1000 240 Intake: Oral 1000 240 Other: # Voids 4 1 # Bowel Movements 1 0 Active Medications: Current Medications Acetaminophen (Tylenol) 650 mg PO Q6H PRN PRN Reason: pain Stop: 08/17/16 19:57 Last Admin: 06/19/16 10:16 Dose: 650 mg Amlodipine Besylate (Norvasc) 5 mg PO DAILY [facility]UDMILA Stop: 08/18/16 08:59 Last Admin: 06/22/16 08:41 Dose: 5 mg Aspirin (Ecotrin) 81 mg PO DAILY [facility]UDMILA Stop: 08/18/16 08:59 Last Admin: 06/22/16 08:40 Dose: 81 mg Camphor/Menthol (Bengay Greaseless 10%-15%) 1 appl TP Q4H PRN PRN Reason: RIGHT KNEE PAIN Stop: 08/17/16 20:55 Cholecalciferol (Vitamin D3) 5,000 iu PO DAILY [facility]UDMILA Stop: 08/18/16 08:59 Last Admin: 06/22/16 08:41 Dose: 5,000 iu Clindamycin HCl (Cleocin Hcl) 150 mg PO Q8HR LIUDMILA Stop: 08/17/16 21:59 Last Admin: 06/22/16 06:20 Dose: 150 mg Clonidine HCl (Catapres) 0.1 mg PO Q8HR PRN PRN Reason: systolic bp above 160 Stop: 08/17/16 19:57 Last Admin: 06/21/16 20:43 Dose: 0.1 mg Docusate Sodium (Colace) 100 mg PO DAILY [facility]UDMILA Stop: 08/18/16 08:59 Last Admin: 06/22/16 08:41 Dose: 100 mg Donepezil HCl (Aricept) 10 mg PO HS LIUDMILA Stop: 08/17/16 20:59 Last Admin: 06/21/16 20:41 Dose: 10 mg Famotidine (Pepcid) 20 mg PO BID [facility] Stop: 08/18/16 08:59 Last Admin: 06/22/16 08:39 Dose: 20 mg Insulin Aspart (Novolog) 0 units SUBQ ACHS LIUDMILA PRN Reason: Protocol Stop: 08/17/16 20:59 Last Admin: 06/22/16 06:45 Dose: Not Given Ketoconazole (Nizoral 2% Cream) 1 appl TP PRN PRN PRN Reason: SCALP DRYNESS/REDNESS Stop: 08/17/16 19:57 Levofloxacin (Levaquin) 500 mg PO DAILY [facility] Stop: 08/18/16 08:59 Last Admin: 06/22/16 08:40 Dose: 500 mg Lorazepam (Ativan) 0.5 mg PO Q6H PRN; Protocol PRN Reason: Anxiety Stop: 08/17/16 19:57 Lorazepam (Ativan) 1 mg PO DAILY LIUDMILA PRN Reason: Protocol Stop: 08/18/16 08:59 Last Admin: 06/21/16 08:16 Dose: 1 mg Memantine (Namenda) 10 mg PO BID [facility] Stop: 08/18/16 08:59 Last Admin: 06/22/16 08:40 Dose: 10 mg Metoprolol Succinate (Toprol Xl) 25 mg PO DAILY [facility]UDMILA Stop: 08/18/16 08:59 Last Admin: 06/22/16 08:39 Dose: 25 mg Quetiapine Fumarate (Seroquel) 50 mg PO DAILY [facility]UDMILA PRN Reason: Protocol Stop: 08/18/16 08:59 Last Admin: 06/22/16 08:39 Dose: 50 mg Quetiapine Fumarate (Seroquel) 100 mg PO HS [facility]UDMILA PRN Reason: Protocol Stop: 08/17/16 20:59 Last Admin: 06/21/16 20:41 Dose: 100 mg Simvastatin (Zocor) 10 mg PO HS LIUDMILA PRN Reason: Protocol Stop: 08/17/16 20:59 Last Admin: 06/21/16 20:41 Dose: 10 mg General: Alert, Cooperative HEENT: Atraumatic, PERRLA, EOMI Neck: Supple Cardiovascular: Regular rate, Normal S1, Normal S2 Lungs: Clear to auscultation, Normal air movement Abdomen: Bowel sounds, Soft Extremities: Other (no edema, left 2 toe open wound.) Neurological: Other (MMSE 11/04) - Procedures Procedures: Procedures Procedure Code Date COLONOSCOPY AND BIOPSY 56603 12/02/14 EGD BIOPSY SINGLE/MULTIPLE 78010 12/02/14 EXCISION OF DUODENUM, ENDO, DIAGN [id number] 12/02/14 EXCISION OF ESOPHAGUS, ENDO, DIAGN [id number] 12/02/14 EXCISION OF RECTUM, ENDO, DIAGN [id number] 12/02/14 Assessment/Plan - Problem List Patient Problems: All Active Problems Abdominal pain (Acute) R10.9 Hypertension (Acute) I10 LEFT #2 TOE ABRASION WITH REDNESS/SWELLI (Acute) Psychosis (Acute) F29 Rectal bleeding (Acute) K62.5 Stroke (Acute) I63.9 - Assessment Assessment: HYPERTENSION. HYPERLIPEDEMIA. DJD. LEFT 2 TOE WOUND. ALZHEIMER'S DEMENTIA. OBESITY FALL RISK. PSYCH DISORDER - Plan Plan: MONITOR VITALS AND BEHAVIOR. FALL PRECAUTIONS. GENERAL NURSING CARE. ANTI HTN MEDS. STATINS. PSYCH MEDS. PSYCH FOLLOW UP. CONTINUE CURRENT CARE. DISCUSSED WITH STAFF.
--- NOTE | 2016-06-23 07:17 | Progress Notes ---
DATE: 06/22/2016 COVERING FOR: Dr. Carrasco. The patient has been cooperative with the staff and trying to work on discharge plans. He is still confused at times, easily agitated. He continues to be unpredictable, impulsive, having episodes of agitation. In general, he is a little bit better. He is sleeping better, eating better. He is compliant with the medication with no side effects, no sedation, no nausea, no extrapyramidal symptoms. The Seroquel dose was increased to 50 mg in the morning and 100 mg at bedtime. No side effects, no sedation, no nausea, no extrapyramidal symptoms. He is on Aricept 10 mg at bedtime. We will continue to work with the patient in group therapy, milieu therapy, and adjust medication as needed. JOB# [id number]
[2016-06-23] MEDS: INSULIN ASPART, RECOMBINANT 100 UNITS/ML SUBQ SCH ×4 (08:00→20:35)
[2016-06-23] MEDS: Multivitamin w/ Minerals Tab PO SCH (08:27)
--- NOTE | 2016-06-23 18:46 | General Progress Note ---
Subjective - Review of Systems Subjective: PATIENT IS SEEN AND EXAMINED. UNABLE TO GET MEANINGFUL HISTORY. CHART REVIEWED. DISCUSSED WITH STAFF RE:THEIR CONCERNS. Objective - Results Recent Labs: Laboratory Last Values POC Glucose 129 MG/DL (70 - 105) H 06/23/16 16:20 - Physical Exam Vitals and I&O: Vital Signs Temp 98.5 F 06/23/16 14:00 Pulse 71 06/23/16 14:00 Resp 20 06/23/16 14:00 BP 141/63 06/23/16 14:00 Pulse Ox 100 06/23/16 14:00 Intake & Output 06/22/16 06/23/16 06/23/16 18:59 06:59 18:59 Intake Total 2800 2600 Balance 2800 2600 Intake: Oral 2800 2600 Other: # Voids 4 2 6 # Bowel Movements 1 1 2 Stool Characteristics Soft Formed Active Medications: Current Medications Acetaminophen (Tylenol) 650 mg PO Q6H PRN PRN Reason: pain Stop: 08/17/16 19:57 Last Admin: 06/19/16 10:16 Dose: 650 mg Amlodipine Besylate (Norvasc) 5 mg PO DAILY LIUDMILA Stop: 08/18/16 08:59 Last Admin: 06/23/16 08:24 Dose: 5 mg Aspirin (Ecotrin) 81 mg PO DAILY LIUDMILA Stop: 08/18/16 08:59 Last Admin: 06/23/16 08:25 Dose: 81 mg Camphor/Menthol (Bengay Greaseless 10%-15%) 1 appl TP Q4H PRN PRN Reason: RIGHT KNEE PAIN Stop: 08/17/16 20:55 Cholecalciferol (Vitamin D3) 5,000 iu PO DAILY LIUDMILA Stop: 08/18/16 08:59 Last Admin: 06/23/16 08:25 Dose: 5,000 iu Clindamycin HCl (Cleocin Hcl) 150 mg PO Q8HR LIUDMILA Stop: 08/17/16 21:59 Last Admin: 06/23/16 13:22 Dose: 150 mg Clonidine HCl (Catapres) 0.1 mg PO Q8HR PRN PRN Reason: systolic bp above 160 Stop: 08/17/16 19:57 Last Admin: 06/21/16 20:43 Dose: 0.1 mg Docusate Sodium (Colace) 100 mg PO DAILY LIUDMILA Stop: 08/18/16 08:59 Last Admin: 06/23/16 08:26 Dose: 100 mg Donepezil HCl (Aricept) 10 mg PO HS LIUDMILA Stop: 08/17/16 20:59 Last Admin: 06/22/16 20:53 Dose: 10 mg Famotidine (Pepcid) 20 mg PO BID LIUDMILA Stop: 08/18/16 08:59 Last Admin: 06/23/16 16:11 Dose: 20 mg Insulin Aspart (Novolog) 0 units SUBQ ACHS LIUDMILA PRN Reason: Protocol Stop: 08/17/16 20:59 Last Admin: 06/23/16 16:47 Dose: Not Given Ketoconazole (Nizoral 2% Cream) 1 appl TP PRN PRN PRN Reason: SCALP DRYNESS/REDNESS Stop: 08/17/16 19:57 Levofloxacin (Levaquin) 500 mg PO DAILY LIUDMILA Stop: 08/18/16 08:59 Last Admin: 06/23/16 08:26 Dose: 500 mg Lorazepam (Ativan) 0.5 mg PO Q6H PRN; Protocol PRN Reason: Anxiety Stop: 08/17/16 19:57 Last Admin: 06/23/16 13:22 Dose: 0.5 mg Lorazepam (Ativan) 1 mg PO DAILY LIUDMILA PRN Reason: Protocol Stop: 08/18/16 08:59 Last Admin: 06/23/16 08:26 Dose: 1 mg Memantine (Namenda) 10 mg PO BID LIUDMILA Stop: 08/18/16 08:59 Last Admin: 06/23/16 16:11 Dose: 10 mg Metoprolol Succinate (Toprol Xl) 25 mg PO DAILY LIUDMILA Stop: 08/18/16 08:59 Last Admin: 06/23/16 08:27 Dose: 25 mg Quetiapine Fumarate (Seroquel) 50 mg PO DAILY LIUDMILA PRN Reason: Protocol Stop: 08/18/16 08:59 Last Admin: 06/23/16 08:27 Dose: 50 mg Quetiapine Fumarate 100 mg/ (Quetiapine Fumarate 25 mg) 125 mg PO HS LIUDMILA Stop: 08/22/16 20:59 Simvastatin (Zocor) 10 mg PO HS LIUDMILA PRN Reason: Protocol Stop: 08/17/16 20:59 Last Admin: 06/22/16 20:53 Dose: 10 mg General: Alert, Cooperative HEENT: Atraumatic, PERRLA, EOMI, Mucous membr. moist/pink Neck: Supple, +2 carotid pulse wo bruit Cardiovascular: Regular rate, Normal S1, Normal S2 Lungs: Clear to auscultation, Normal air movement Abdomen: Soft, Obese Extremities: Other (no edema+) - Procedures Procedures: Procedures Procedure Code Date COLONOSCOPY AND BIOPSY 86883 12/02/14 EGD BIOPSY SINGLE/MULTIPLE 09895 12/02/14 EXCISION OF DUODENUM, ENDO, DIAGN [id number] 12/02/14 EXCISION OF ESOPHAGUS, ENDO, DIAGN [id number] 12/02/14 EXCISION OF RECTUM, ENDO, DIAGN [id number] 12/02/14 Assessment/Plan - Problem List Patient Problems: All Active Problems Abdominal pain (Acute) R10.9 Hypertension (Acute) I10 LEFT #2 TOE ABRASION WITH REDNESS/SWELLI (Acute) Psychosis (Acute) F29 Rectal bleeding (Acute) K62.5 Stroke (Acute) I63.9 - Assessment Assessment: HYPERTENSION. HYPERLIPEDEMIA. DJD. LEFT 2 TOE WOUND. ALZHEIMER'S DEMENTIA. OBESITY FALL RISK. PSYCH DISORDER - Plan Plan: MONITOR VITALS AND BEHAVIOR. FALL PRECAUTIONS. GENERAL NURSING CARE. ANTI HTN MEDS. STATINS. WOUND CARE CONSULT. PSYCH MEDS. PSYCH FOLLOW UP. CONTINUE CURRENT CARE. DISCUSSED WITH STAFF. Nutritional Asmnt/Malnutr-PDOC - Dietary Evaluation Malnutrition Findings (Please click <Entered> for more info): Nutritional Asmnt/Malnutrition Start: 06/22/16 11: 28 Text: Status: Complete Freq: Document 06/22/16 11:28 GSUN (Rec: 06/22/16 11:39 [email or web address] [email or web address]) Nutritional Asmnt/Malnutrition Patient General Information Nutritional Screening Moderate Risk Screening Diagnosis Psychosis, dementia Pertinent Medical Hx/Surgical Hx Left second toe cellulitis and open wound (resolving), peripheral vascular disease, diet controlled DM, DJD, dementia, HTN, hyperlipidemia Subjective Information 80 year old male, admitted to [facility] for toe cellulitis, transfered to [facility] 06/18/16. Pt is a poor historian, able to answer simple questions, however some resposnes were nonsensical. Pt seen in wheelchair around unit. Few teeth missing, denied chewing difficulties. Aspiration/ choking precautions noted by staff, pt denied difficulties swallowing. Pt reported food is good. Avg PO intake 100% of meals, meeting nutritional needs. Current Diet Order/ Nutrition Support [id number] Pertinent Medications Vitamin D3, Colace, Pepcid, Novolog, Seroquel Pertinent Labs POC glucose 70-148 past 3 days , one episode hypo 60L Nutritional Hx/Data Height 1.78 m Height (Calculated Centimeters) 177.8 Current Weight (lbs) 81.647 kg Weight (Calculated Kilograms) 81.6 Weight (Calculated Grams) 16389.6 [place] Body Weight 166 Weight Status Approriate GI Symptoms Food Allergies No Skin Integrity/Comment: Martin 19. Toe cellulitis, otherwise skin intact, Current %PO Good (75-100%) Estimated Nutritional Goals BEE in Kcals: Using Current wt Calories/Kcals/Kg CBW 81.6kg Kcals Calculated 2040-2448kcal (25-30kcal/kg) Protein: Using Current wt Protein Calculated 82g (1g/kg) Fluid: ml 2040-2448ml (1ml/kcal) Nutritional Problem 1. Problem Problem Altered nutrition related laboratory values related to Etiology DM aeb Signs/Symptoms: H&P, elevated POC glucose, on DM medications. Intervention/Recommendation Comments 1. Continue with [id number]. Avg PO intake is adequate. Expected Outcomes/Goals Expected Outcomes/Goals 1. PO intake continue to meet at least 75% of estimated nutritional needs.
--- NOTE | 2016-06-24 05:58 | Progress Notes ---
DATE: 06/23/2016 Case was discussed with staff of the patient, reviewed records. The patient has been agitated. The patient has been needing redirection, very poor insight. He is irritable, angry, very easily agitated. He has been compliant with the medication with no side effects, no sedation, no nausea, no extrapyramidal symptoms. I will be increasing his Seroquel at bedtime to 125 mg to help with his agitation and so far, no side effects, no sedation, no nausea, no extrapyramidal symptoms and we will continue to work with the patient in group therapy, milieu therapy, adjust the medication as needed. JOB# [id number]
[2016-06-24] MEDS: INSULIN ASPART, RECOMBINANT 100 UNITS/ML SUBQ SCH ×4 (06:32→20:07)
--- NOTE | 2016-06-24 08:01 | Progress Notes ---
DATE: 06/24/2016 SUBJECTIVE: Chart reviewed and the patient interviewed. Also discussed the patient's condition with the staff and reviewed records and labs. The patient remains confused and anxious. The patient also is still easily agitated and is still in irritable mood. The patient also is still confused. The patient also has thought processes that are circumstantial and tangential with flight of ideas. He also is actively hallucinating and actively talking to himself. Also, forgetful and he is still unable to carry on coherent conversation. ASSESSMENT: The patient is still psychotic and agitated. TREATMENT PLAN: The patient continued to take Aricept in a dose of 10 mg at bedtime. Also, continue to he will continue to take Namenda in a dose of 10 mg twice a day and Seroquel changed to be 50 mg in the morning and 125 mg at bedtime with no side effects. We will increase Seroquel to 150 mg at bedtime and we will continue to 50 mg during the day and we will continue to monitor his behavior closely. Also, we will work with the patient's daughter in regards to the discharge plans and in regards to placement issues. At the time being, the patient is still psychotic and is still considered to be gravely disabled and can be dangerous to others. [facility]# [id number]
[2016-06-24] MEDS: Multivitamin w/ Minerals Tab PO SCH (08:34)
[2016-06-25] MEDS: INSULIN ASPART, RECOMBINANT 100 UNITS/ML SUBQ SCH ×3 (06:30→22:10)
[2016-06-25] MEDS: Multivitamin w/ Minerals Tab PO SCH (08:45)
--- NOTE | 2016-06-25 13:44 | General Progress Note ---
Subjective - Review of Systems Subjective: PATIENT IS SEEN AND EXAMINED. UNABLE TO GET MEANINGFUL HISTORY. CHART REVIEWED. DISCUSSED WITH STAFF RE:THEIR CONCERNS. Objective - Results Recent Labs: Laboratory Last Values POC Glucose 109 MG/DL (70 - 105) H 06/25/16 11:26 - Physical Exam Vitals and I&O: Vital Signs Temp 97.8 F 06/24/16 15:27 Pulse 84 06/25/16 10:25 Resp 19 06/25/16 10:25 BP 154/69 06/25/16 08:46 Pulse Ox 97 06/24/16 15:27 Intake & Output 06/24/16 06/25/16 06/25/16 18:59 06:59 18:59 Intake Total 1800 Balance 1800 Intake: Oral 1800 Other: # Voids 4 # Bowel Movements 1 Stool Characteristics Soft Soft Soft Formed Formed Formed Active Medications: Current Medications Acetaminophen (Tylenol) 650 mg PO Q6H PRN PRN Reason: pain Stop: 08/17/16 19:57 Last Admin: 06/19/16 10:16 Dose: 650 mg Amlodipine Besylate (Norvasc) 5 mg PO DAILY LIUDMILA Stop: 08/18/16 08:59 Last Admin: 06/25/16 08:45 Dose: 5 mg Aspirin (Ecotrin) 81 mg PO DAILY LIUDMILA Stop: 08/18/16 08:59 Last Admin: 06/25/16 08:45 Dose: 81 mg Camphor/Menthol (Bengay Greaseless 10%-15%) 1 appl TP Q4H PRN PRN Reason: RIGHT KNEE PAIN Stop: 08/17/16 20:55 Cholecalciferol (Vitamin D3) 5,000 iu PO DAILY LIUDMILA Stop: 08/18/16 08:59 Last Admin: 06/25/16 08:44 Dose: 5,000 iu Clindamycin HCl (Cleocin Hcl) 150 mg PO Q8HR LIUDMILA Stop: 08/17/16 21:59 Last Admin: 06/25/16 05:17 Dose: 150 mg Clonidine HCl (Catapres) 0.1 mg PO Q8HR PRN PRN Reason: systolic bp above 160 Stop: 08/17/16 19:57 Last Admin: 06/24/16 19:19 Dose: 0.1 mg Docusate Sodium (Colace) 100 mg PO DAILY LIUDMILA Stop: 08/18/16 08:59 Last Admin: 06/25/16 08:45 Dose: 100 mg Donepezil HCl (Aricept) 10 mg PO HS LIUDMILA Stop: 08/17/16 20:59 Last Admin: 06/24/16 20:05 Dose: 10 mg Famotidine (Pepcid) 20 mg PO BID LIUDMILA Stop: 08/18/16 08:59 Last Admin: 06/25/16 08:45 Dose: 20 mg Insulin Aspart (Novolog) 0 units SUBQ ACHS LIUDMILA PRN Reason: Protocol Stop: 08/17/16 20:59 Last Admin: 06/25/16 11:34 Dose: Not Given Ketoconazole (Nizoral 2% Cream) 1 appl TP PRN PRN PRN Reason: SCALP DRYNESS/REDNESS Stop: 08/17/16 19:57 Levofloxacin (Levaquin) 500 mg PO DAILY [facility] Stop: 08/18/16 08:59 Last Admin: 06/25/16 08:46 Dose: 500 mg Lorazepam (Ativan) 0.5 mg PO Q6H PRN; Protocol PRN Reason: Anxiety Stop: 08/17/16 19:57 Last Admin: 06/23/16 13:22 Dose: 0.5 mg Lorazepam (Ativan) 1 mg PO DAILY LIUDMILA PRN Reason: Protocol Stop: 08/18/16 08:59 Last Admin: 06/25/16 08:44 Dose: 1 mg Memantine (Namenda) 10 mg PO BID [facility] Stop: 08/18/16 08:59 Last Admin: 06/25/16 08:45 Dose: 10 mg Metoprolol Succinate (Toprol Xl) 25 mg PO DAILY LIUDMILA Stop: 08/18/16 08:59 Last Admin: 06/25/16 08:46 Dose: 25 mg Quetiapine Fumarate (Seroquel) 50 mg PO DAILY LIUDMILA PRN Reason: Protocol Stop: 08/18/16 08:59 Last Admin: 06/25/16 08:44 Dose: 50 mg Quetiapine Fumarate (Seroquel) 150 mg PO HS LIUDMILA Stop: 08/22/16 20:59 Last Admin: 06/24/16 20:06 Dose: 150 mg Simvastatin (Zocor) 10 mg PO HS LIUDMILA PRN Reason: Protocol Stop: 08/17/16 20:59 Last Admin: 06/24/16 20:06 Dose: 10 mg General: Alert, Cooperative HEENT: Atraumatic, PERRLA, EOMI Neck: Supple, JVD Cardiovascular: Regular rate, Normal S1, Normal S2 Lungs: Clear to auscultation Abdomen: Bowel sounds, Soft Extremities: Other (Diffuse DJD) - Procedures Procedures: Procedures Procedure Code Date COLONOSCOPY AND BIOPSY 69352 12/02/14 EGD BIOPSY SINGLE/MULTIPLE 62789 12/02/14 EXCISION OF DUODENUM, ENDO, DIAGN [id number] 12/02/14 EXCISION OF ESOPHAGUS, ENDO, DIAGN [id number] 12/02/14 EXCISION OF RECTUM, ENDO, DIAGN [id number] 12/02/14 Assessment/Plan - Problem List Patient Problems: All Active Problems Abdominal pain (Acute) R10.9 Hypertension (Acute) I10 LEFT #2 TOE ABRASION WITH REDNESS/SWELLI (Acute) Psychosis (Acute) F29 Rectal bleeding (Acute) K62.5 Stroke (Acute) I63.9 - Assessment Assessment: HYPERTENSION. HYPERLIPEDEMIA. DJD. LEFT 2 TOE WOUND. ALZHEIMER'S DEMENTIA. OBESITY FALL RISK. PSYCH DISORDER - Plan Plan: MONITOR VITALS AND BEHAVIOR. FALL PRECAUTIONS. GENERAL NURSING CARE. ANTI HTN MEDS. STATINS. WOUND CARE CONSULT. PSYCH MEDS. PSYCH FOLLOW UP. CONTINUE CURRENT CARE. DISCUSSED WITH STAFF. Nutritional Asmnt/Malnutr-PDOC - Dietary Evaluation Malnutrition Findings (Please click <Entered> for more info): Nutritional Asmnt/Malnutrition Start: 06/22/16 11: 28 Text: Status: Complete Freq: Document 06/22/16 11:28 GSUN (Rec: 06/22/16 11:39 [email or web address] [email or web address]) Nutritional Asmnt/Malnutrition Patient General Information Nutritional Screening Moderate Risk Screening Diagnosis Psychosis, dementia Pertinent Medical Hx/Surgical Hx Left second toe cellulitis and open wound (resolving), peripheral vascular disease, diet controlled DM, DJD, dementia, HTN, hyperlipidemia Subjective Information 80 year old male, admitted to [facility] for toe cellulitis, transfered to [facility] 06/18/16. Pt is a poor historian, able to answer simple questions, however some resposnes were nonsensical. Pt seen in wheelchair around unit. Few teeth missing, denied chewing difficulties. Aspiration/ choking precautions noted by staff, pt denied difficulties swallowing. Pt reported food is good. Avg PO intake 100% of meals, meeting nutritional needs. Current Diet Order/ Nutrition Support [id number] Pertinent Medications Vitamin D3, Colace, Pepcid, Novolog, Seroquel Pertinent Labs POC glucose 70-148 past 3 days , one episode hypo 60L Nutritional Hx/Data Height 1.78 m Height (Calculated Centimeters) 177.8 Current Weight (lbs) 81.647 kg Weight (Calculated Kilograms) 81.6 Weight (Calculated Grams) 73296.6 [place] Body Weight 166 Weight Status Approriate GI Symptoms Food Allergies No Skin Integrity/Comment: Martin 19. Toe cellulitis, otherwise skin intact, Current %PO Good (75-100%) Estimated Nutritional Goals BEE in Kcals: Using Current wt Calories/Kcals/Kg CBW 81.6kg Kcals Calculated 2040-2448kcal (25-30kcal/kg) Protein: Using Current wt Protein Calculated 82g (1g/kg) Fluid: ml 2040-2448ml (1ml/kcal) Nutritional Problem 1. Problem Problem Altered nutrition related laboratory values related to Etiology DM aeb Signs/Symptoms: H&P, elevated POC glucose, on DM medications. Intervention/Recommendation Comments 1. Continue with [id number]. Avg PO intake is adequate. Expected Outcomes/Goals Expected Outcomes/Goals 1. PO intake continue to meet at least 75% of estimated nutritional needs.
--- NOTE | 2016-06-26 03:54 | Progress Notes ---
DATE: 06/25/2016 SUBJECTIVE: Chart reviewed and the patient interviewed. Also, discussed the patient's condition with the staff and reviewed records and labs. The patient continued to be extremely angry and paranoid. The patient also is still delusional and is still going around the unit and asking to go home. Also, still has disorganized thoughts. Also, he gets agitated when staff tries to redirect him. The patient also has difficulty sleeping at night and he also is still resisting care. ASSESSMENT: The patient is still agitated and he is still psychotic. TREATMENT PLAN: I increase Seroquel yesterday with no side effects. We will continue same dose and continue adjusting the dose. Also, continue to work on his irritability and anger as well as his poor impulse control and we will continue to follow up closely. JOB# [id number]
[2016-06-26] MEDS: INSULIN ASPART, RECOMBINANT 100 UNITS/ML SUBQ SCH (06:51)
[2016-06-26] MEDS: Multivitamin w/ Minerals Tab PO SCH (08:39)
--- NOTE | 2016-06-26 18:19 | Discharge Summary ---
DATE OF DISCHARGE: 06/26/2016 ____ PRIMARY DIAGNOSIS: Unspecified psychosis. SECONDARY DIAGNOSIS: Dementia with [id number], with psychotic features. REASON FOR HOSPITALIZATION: The patient was admitted to the hospital from [facility] because the patient was acting aggressive and he was in angry and in irritable mood and he was not able to follow any of staff directions. HOSPITAL COURSE: The patient continued to be agitated and in irritable mood. The patient also was agitated and aggressive. The patient also was intrusive to others. The patient also was hyperverbal. He had difficulty with following staff directions. On the other hand, the patient was compliant with taking his medications and the patient had no side effects of medications. Physical exam of the patient showed no major medical problem while in the hospital. MEDICATIONS: The patient continues to take Aricept to 10 mg everyday and also continue to take Namenda 10 mg twice a day. The patient also took Seroquel and the dose adjusted to 50 mg in the morning and 150 mg at bedtime with no problems. LABS: No abnormal labs. AFTER DISCHARGE PLANS: The patient discharged from the hospital and went to [facility]. Outpatient treatment and followup will continue there. DISCHARGE ACTIVITY: As tolerated. DISCHARGE DIET: Regular. DISCHARGE PSYCHOTROPIC MEDICATIONS: As mentioned above. EXPECTED OUTCOME AFTER DISCHARGE: Fair if the patient continue with his outpatient treatment and followup. JOB# [id number]
== END 2016-06-26 10:15 | DRG 885 ==
LOC: GERO 17:55
PROVIDERS: ADMIT Psychiatry & Neurology Psychiatry; ATTEND Psychiatry & Neurology Psychiatry
PROC: GZHZZZZ Group Psychotherapy (ICD-10-PCS; principal; 2016-06-18)
DX: F29 Unspecified psychosis not due to a substance or known physiological condition (principal); E11.51 Type 2 diabetes mellitus with diabetic peripheral angiopathy without gangrene; G30.9 Alzheimer's disease, unspecified; F02.80 Dementia in other diseases classified elsewhere, unspecified severity, without behavioral disturbance, psychotic disturbance, mood disturbance, and anxiety; I10 Essential (primary) hypertension; E78.5 Hyperlipidemia, unspecified; M19.90 Unspecified osteoarthritis, unspecified site; L03.032 Cellulitis of left toe; E66.9 Obesity, unspecified; Z68.25 Body mass index [BMI] 25.0-25.9, adult
CPT/HCPCS: 82948-90; 90899; J1200; J1630; J1815; J2060; Z7610

== ENCOUNTER 2017-10-19 09:42 | Inpatient (IN) | payer MEDICARE, MEDICAID ==
--- NOTE | 2017-10-19 10:09 | ED Physician Chart ---
ED Chief Complaint/HPI - Patient Information Date Seen:: 10/19/17 Time Seen:: 09:50 Chief Complaint:: Weakness History of Present Illness:: onset x 4 days of weakness, poor oral, and failure to thrive with abnormal lab tests this am; no report of LOC, ALOC, AMS, dizziness, S/T, H/As, neck pain, C/P , SOB, Abd. Pain, A/N/V/D/C, fever, chills, or urinary s/s Allergies:: Allergies Allergy/AdvReac Type Severity Reaction Status Date / Time No Known Allergies Allergy Verified 11/29/15 23:28 Historian:: Patient, EMS Review:: Nurse's Note Reviewed, Old Chart Reviewed, EMS run form Reviewed ED Review of Systems - Review of Systems General/Constitutional: No fever, No chills, No weight loss, No weakness, No diaphoresis, No edema, No loss of appetite Skin: No skin lesions, No rash, No bruising Head: No headache, No light-headedness Eyes: No loss of vision, No pain, No diplopia ENT: No earache, No nasal drainage, No sore throat, No tinnitus Neck: No neck pain, No swelling, No thyromegaly, No stiffness, No mass noted Cardio Vascular: No chest pain, No palpitations, No PND, No orthopnea, No edema Pulmonary: No SOB, No cough, No sputum, No wheezing GI: No nausea, No vomiting, No diarrhea, No pain, No melena, No hematochezia, No constipation, No hematemesis G/U: No dysuria, No frequency, No hematuria, No nacturia Musculoskeletal: No bone or joint pain, No back pain, No muscle pain Endocrine: No polyuria, No polydipsia Psychiatric: Prior psych history, No depression, Anxiety, No suicidal ideation, No homicidal ideation, Auditory hallucination, No visual hallucination Hematopoietic: No bruising, No lymphadenopathy Allergic/Immuno: No urticaria, No angioedema Neurological: No syncope, No focal symptoms, No weakness, No paresthesia, No headache, No seizure, No dizziness, Confusion, No vertigo ED Past Medical History - Past Medical History Obtainable: Yes Past Medical History: HTN, DM, Dyslipidemia, ESRD, Dementia Family History: Diabetes Melitus, HTN Social History: Non Smoker, No Alcohol, No Drug Use, , Care Facility Surgical History: None Psychiatricy History: Schizophrenia, Dementia Medication: Reviewed Family Medical History - Family Member Mother History Unknown: Yes Ethnicity: Living Status: Still Living Hx Family Cancer: No Hx Family Coronary Artery Disease: No Hx Family Congestive Heart Failure: No Hx Family Hypertension: No Hx Family Stroke: No Hx Family Diabetes: No Hx Family Seizures: No Hx Family Dementia: No Hx Family AIDS: No Hx Family HIV: No Hx Family COPD: No Hx Family Hepatitis: No Hx Family Psychiatric Problems: No Hx Family Tuberculosis: No ED Physical Exam - Physical Examination General/Constitutional: Awake, Well-developed, well-nourished, Alert, No distress, GCS 15, Non-toxic appearing, Ambulatory Head: Atraumatic Eyes: Lids, conjuctiva normal, PERRL, EOMI Skin: Nl inspection, No rash, No skin lesions, No ecchymosis, Well hydrated, No lymphadenopathy ENMT: External ears, nose nl, TM canals nl, Nasal exam nl, Lips, teeth, gums nl , Oropharynx nl, Tonsils nl Neck: Nontender, Full ROM w/o pain, No JVD, No nuchal rigidity, No bruit, No mass, No stridor Respiratory: Nl effort/Exclusion, Clear to Auscultation, No Wheeze/Rhonchi/Rales Cardio Vascular: RRR, No murmur, gallop, rubs, NL S1 S2, Carotid/Femoral/Distal pulses equal bilaterally GI: No tenderness/rebounding/guarding, No organomegaly, No hernia, Normal BS's, Nondistended, No mass/bruits, No McBurney tenderness : No CVA tenderness Extremities: No tenderness or effusion, Full ROM, normal strength in all extremities, No edema, Normal digits & nails Neuro/Psych: Alert/oriented, DTR's symmetric, Normal sensory exam, Normal motor strength, Judgement/insight normal, Mood normal, Normal gait, No focal deficits Other Neuro/Psych comments:: Disoriented and Confused Misc: Normal back, No paraspinal tenderness ED Labs/Radiology/EKG Results - Lab Results Comments:: Reviewed - EKG Interpretations EKG Time:: 10:12 Rate & Rhythm: 71; NSR Comments:: RBBB; non-specific st-t changes ED Septic Shock - . Is Septic Shock (SBP<90, OR Lactate>4 mmol\L) present?: No ED Reassessment (Disposition) - Reassessment Reassessment Condition:: Improved - Diagnosis Diagnosis:: Weakness; Failure to Thrive; Poor Oral Intake; Dehydration - Aftercare/Follow up Instructions Aftercare/Follow-Up Instructions:: Counseled pt regarding lab results/diagnosis & need follow up, Counseled pt & family regarding lab results/diagnosis & need follow up - Patient Disposition Discharge/Transfer:: Acute Care w/in this hosp Accepting Physician:: Dr. Avila Time Called:: 1100 Time Responded:: 01:00 Admitted to:: Med/Surg Spoke to:: Dr. Avila Admitting Medical Physician:: Dr. Avila Condition at Disposition:: Stable, Improved
[2017-10-19 10:45] LABS: ALB/GLOB RATIO 1.2 (1.0-1.8); ALBUMIN 4.1 gm/dL (4.2-5.5); ALKALINE PHOSPHATASE 37 U/L (34-104); BILIRUBIN,TOTAL 0.3 mg/dL (0.3-1.0); BUN - UREA NITROGEN 26 mg/dL (7-25); CALCIUM SERUM 9.4 mg/dL (8.6-10.3); CARBON DIOXIDE 24.5 mEq/L (21.0-31.0); CHLORIDE 107 mEq/L (98-107); CREATININE - SERUM 1.9 mg/dL (0.7-1.3); CREATININE KINASE 51 U/L (30-223); GLUCOSE 114 mg/dL (70-105); POTASSIUM SERUM 4.5 mEq/L (3.5-5.1); SGOT 23 U/L (13-39); SGPT/ALT 17 U/L (7-52); SODIUM SERUM 137 mEq/L (136-145); TOTAL PROTEIN,SERUM 7.4 gm/dL (6.0-8.3)
[2017-10-19 10:45] LABS: URINE SOURCE CLEAN C
[2017-10-19 10:47] LABS: URINE BILIRUBIN NEGATIVE (NEGATIVE); URINE BLOOD NEGATIVE (NEGATIVE); URINE GLUCOSE (UA) NEGATIVE (NEGATIVE); URINE KETONE NEGATIVE (NEGATIVE); URINE LEUKOCYTE ESTERASE NEGATIVE (NEGATIVE); URINE NITRATE NEGATIVE (NEGATIVE); URINE PH 6.5 (4.6 - 8.0); URINE PROTEIN NEGATIVE (NEGATIVE); URINE UROBILINOGEN 0.2 E.U./dL (0.2 - 1.0)
[2017-10-19 10:47] LABS: INR 1.05 (0.5-1.4); PROTHROMBIN TIME (TEST) 10.9 SECONDS (9.5-11.5)
[2017-10-19 10:57] LABS: URINE CLARITY CLEAR (CLEAR); URINE COLOR YELLOW
[2017-10-19 11:04] LABS: % BASOPHILS 1.2 % (0.0-2.0); % EOSINOPHILS 3.5 % (0.0-5.0); % LYMPHOCYTES 29.5 % (20.0-50.0); % MONOCYTES 6.8 % (2.0-10.0); BASOPHILE ABSOLUTE 0.1 Th/cumm (0-0.2); EOSINOPHILE ABSOLUTE 0.3 Th/cmm (0.1-0.4); HEMATOCRIT 38.2 % (41.0-60); HEMOGLOBIN 12.9 gm/dL (12-16); LYMPHOCYTE ABSOLUTE 2.4 Th/cmm (1.5-3.0); MEAN CELL VOLUME 83.9 fl (80-99); MEAN CORPUSCULAR HEMOGLOBIN 28.4 pg (27.0-31.0); MEAN CORPUSCULAR HGB CONC 33.8 pg (28.0-36.0); MONOCYTE ABSOLUTE 0.6 Th/cmm (0.3-1.0); NEUTROPHILE ABSOLUTE 4.8 Th/cmm (1.8-8.0); PLATELET COUNT 365 Th/cmm (150-400); RED BLOOD COUNT 4.55 Mil/cmm (3.80-5.80); RED CELL DISTRIBUTION WIDTH 13.9 % (11.5-20.0); WHITE BLOOD COUNT 8.2 Th/cmm (4.8-10.8)
--- NOTE | 2017-10-19 11:29 | Diagnostic Imaging Report ---
CHEST X-RAY: AP view INDICATION: pain COMPARISON: 07/03/2016 FINDINGS: Mild increased left basal lung markings are noted. There may be a trace left effusion. Heart size is normal. Atherosclerosis is noted. Degenerative changes of the spine are noted. IMPRESSION: Mild increased left basal lung markings probably due to atelectasis. Infiltrate is less likely. Questionable trace left pleural fluid Atherosclerotic vascular disease.
[2017-10-19 13:23] VITALS: BP 119/65
[2017-10-19] MEDS: INSULIN ASPART SLIDING SCALE 100 UNITS/ML UNIT SUBQ SCH ×2 (17:56→20:30)
--- NOTE | 2017-10-19 19:54 | History & Physical ---
ADMIT DATE: HISTORY OF PRESENT ILLNESS: The patient came to the Emergency Room with poor intake, weakness, failure to thrive, abnormal labs, was admitted for that. The patient was brought by the EMS, was seen in the ER, was admitted. The patient had no fever, no chest pain, no abdominal pain, no other problem. REVIEW OF SYSTEMS: System review was otherwise negative. PAST MEDICAL HISTORY: Hypertension, diabetes, hyperlipidemia, ESRD, and dementia. PHYSICAL EXAMINATION: HEAD: Normal. ENT: Normal. NECK: Supple, nontender. LUNGS: Clear. CARDIOVASCULAR SYSTEM: S1, S2 heard. ABDOMEN: Soft. Bowel sounds are heard. CENTRAL NERVOUS SYSTEM: The patient was disoriented and confused. LABORATORY DATA: Hemoglobin was okay and EKG showed normal sinus rhythm. DIAGNOSES: Encephalopathy, weakness, failure to thrive, poor intake, dehydration was made. PLAN: The patient will be admitted. I will go ahead and do a workup including GI workup and Neurology. I will follow the patient. [facility]# [id number]
[2017-10-19] MEDS ORDERED: Menthol/Methyl Salicylate Cream TP PRN (22:37)
[2017-10-19] MEDS ORDERED: Acetaminophen 500 MG TAB PO PRN (22:37)
[2017-10-20] MEDS: INSULIN ASPART SLIDING SCALE 100 UNITS/ML UNIT SUBQ SCH ×4 (06:32→21:16)
[2017-10-20] MEDS: Vitamin D3 2,000 IU SGL PO SCH (09:36)
[2017-10-20] MEDS: Multivitamin w/ Minerals Tab PO SCH (09:38)
--- NOTE | 2017-10-20 15:08 | General Progress Note ---
Subjective - Review of Systems Events since last encounter: patient with weakness failure to thrive Objective - Results Result Diagrams: 10/19/17 10:12 10/19/17 10:12 Recent Labs: Laboratory Last Values WBC 8.2 Th/cmm (4.8-10.8) 10/19/17 10:12 RBC 4.55 Mil/cmm (3.80-5.80) 10/19/17 10:12 Hgb 12.9 gm/dL (12-16) 10/19/17 10:12 Hct 38.2 % (41.0-60) L 10/19/17 10:12 MCV 83.9 fl (80-99) 10/19/17 10:12 MCH 28.4 pg (27.0-31.0) 10/19/17 10:12 MCHC Differential 33.8 pg (28.0-36.0) 10/19/17 10:12 RDW 13.9 % (11.5-20.0) 10/19/17 10:12 Plt Count 365 Th/cmm (150-400) 10/19/17 10:12 MPV 8.0 fl 10/19/17 10:12 Neutrophils % 59.0 % (40.0-80.0) 10/19/17 10:12 Lymphocytes % 29.5 % (20.0-50.0) 10/19/17 10:12 Monocytes % 6.8 % (2.0-10.0) 10/19/17 10:12 Eosinophils % 3.5 % (0.0-5.0) 10/19/17 10:12 Basophils % 1.2 % (0.0-2.0) 10/19/17 10:12 PT 10.9 SECONDS (9.5-11.5) 10/19/17 10:12 INR 1.05 (0.5-1.4) 10/19/17 10:12 PTT (Actin FS) 28.1 SECONDS (26.0-38.0) 10/19/17 10:12 Sodium 137 mEq/L (136-145) 10/19/17 10:12 Potassium 4.5 mEq/L (3.5-5.1) 10/19/17 10:12 Chloride 107 mEq/L (98-107) 10/19/17 10:12 Carbon Dioxide 24.5 mEq/L (21.0-31.0) 10/19/17 10:12 Anion Gap 10.0 (7.0-16.0) 10/19/17 10:12 BUN 26 mg/dL (7-25) H 10/19/17 10:12 Creatinine 1.9 mg/dL (0.7-1.3) H 10/19/17 10:12 Est GFR ( Amer) TNP 10/19/17 10:12 Est GFR (Non-Af Amer) TNP 10/19/17 10:12 BUN/Creatinine Ratio 13.7 10/19/17 10:12 Glucose 114 mg/dL (70-105) H 10/19/17 10:12 POC Glucose 94 MG/DL (70 - 105) 10/20/17 12:03 Whole Bld Lactic Acid 1.44 mmol/L (0.60-1.99) 10/19/17 10:12 Calcium 9.4 mg/dL (8.6-10.3) 10/19/17 10:12 Total Bilirubin 0.3 mg/dL (0.3-1.0) 10/19/17 10:12 AST 23 U/L (13-39) 10/19/17 10:12 ALT 17 U/L (7-52) 10/19/17 10:12 Alkaline Phosphatase 37 U/L (34-104) 10/19/17 10:12 Creatine Kinase 51 U/L (30-223) 10/19/17 10:12 Troponin I 0.02 ng/mL (0.01-0.05) 10/19/17 10:12 Total Protein 7.4 gm/dL (6.0-8.3) 10/19/17 10:12 Albumin 4.1 gm/dL (4.2-5.5) L 10/19/17 10:12 Globulin 3.3 gm/dL 10/19/17 10:12 Albumin/Globulin Ratio 1.2 (1.0-1.8) 10/19/17 10:12 Urine Source CLEAN C 10/19/17 10:30 Urine Color YELLOW 10/19/17 10:30 Urine Clarity CLEAR (CLEAR) 10/19/17 10:30 Urine pH 6.5 (4.6 - 8.0) 10/19/17 10:30 Ur Specific [place] 1.015 (1.005-1.030) 10/19/17 10:30 Urine Protein NEGATIVE mg/dL (NEGATIVE) 10/19/17 10:30 Urine Glucose (UA) NEGATIVE mg/dL (NEGATIVE) 10/19/17 10:30 Urine Ketones NEGATIVE mg/dL (NEGATIVE) 10/19/17 10:30 Urine Blood NEGATIVE (NEGATIVE) 10/19/17 10:30 Urine Nitrate NEGATIVE (NEGATIVE) 10/19/17 10:30 Urine Bilirubin NEGATIVE (NEGATIVE) 10/19/17 10:30 Urine Urobilinogen 0.2 E.U./dL (0.2 - 1.0) 10/19/17 10:30 Ur Leukocyte Esterase NEGATIVE (NEGATIVE) 10/19/17 10:30 - Physical Exam Vitals and I&O: Vital Signs Temp 98.9 F 10/20/17 11:56 Pulse 69 10/20/17 11:56 Resp 18 10/20/17 11:56 BP 163/59 10/20/17 11:56 Pulse Ox 95 10/20/17 11:56 Intake & Output 10/19/17 10/20/17 10/20/17 18:59 06:59 18:59 Intake Total 500 120 Output Total 200 Balance 500 -80 Weight (lbs) 80.15 kg 79.832 kg Intake: Oral 500 120 Output: Urine 200 Other: # Voids 2 # Bowel Movements 1 Stool Characteristics Formed Weight Source Bedscale Bedscale Active Medications: Current Medications Acetaminophen (Tylenol Extra Strength) 1,000 mg PO Q4H PRN PRN Reason: Pain (Moderate) Stop: 12/18/17 22:36 Acetaminophen (Tylenol) 650 mg PO Q4H PRN PRN Reason: pain/[id number]> Stop: 12/18/17 22:36 Amlodipine Besylate (Norvasc) 5 mg PO DAILY [facility] Stop: 12/19/17 08:59 Last Admin: 10/20/17 09:38 Dose: 5 mg Ascorbic Acid (Vitamin C) 500 mg PO DAILY [facility] Stop: 12/19/17 08:59 Last Admin: 10/20/17 09:38 Dose: 500 mg Aspirin (Ecotrin) 81 mg PO DAILY [facility] Stop: 12/19/17 08:59 Last Admin: 10/20/17 09:38 Dose: 81 mg Camphor/Menthol (Bengay Greaseless 10%-15%) 1 appl TP Q4H PRN PRN Reason: RIGHT KNEE PAIN Stop: 12/18/17 22:36 Docusate Sodium (Colace) 100 mg PO DAILY [facility] Stop: 12/19/17 08:59 Last Admin: 10/20/17 09:37 Dose: 100 mg Donepezil HCl (Aricept) 10 mg PO HS [facility] Stop: 12/19/17 20:59 Famotidine (Pepcid) 20 mg PO BID [facility] Stop: 12/18/17 16:59 Last Admin: 10/20/17 09:38 Dose: 20 mg Insulin Aspart (Novolog Insulin Sliding Scale) 0 units SUBQ ACHS [facility]; Protocol Stop: 12/19/17 07:29 Last Admin: 10/20/17 11:32 Dose: Not Given Lorazepam (Ativan) 0.5 mg PO Q6H PRN; Protocol PRN Reason: Anxiety Stop: 12/18/17 22:36 Memantine (Namenda) 10 mg PO BID [facility] Stop: 12/19/17 08:59 Last Admin: 10/20/17 09:37 Dose: 10 mg Metoprolol Succinate (Toprol Xl) 25 mg PO DAILY [facility] Stop: 12/19/17 08:59 Last Admin: 10/20/17 09:37 Dose: 25 mg Quetiapine Fumarate (Seroquel) 200 mg PO HS [facility]; Protocol Stop: 12/19/17 20:59 Quetiapine Fumarate (Seroquel) 50 mg PO DAILY [facility]; Protocol Stop: 12/19/17 08:59 Last Admin: 10/20/17 09:38 Dose: 50 mg Simvastatin (Zocor) 10 mg PO HS [facility]; Protocol Stop: 12/19/17 20:59 Vitamin D (Vitamin D3) 4,000 iu PO DAILY [facility] Stop: 12/19/17 08:59 Last Admin: 10/20/17 09:36 Dose: 4,000 iu Zolpidem Tartrate (Ambien) 5 mg PO HS PRN PRN Reason: Insomnia Stop: 12/18/17 22:36 General: No acute distress HEENT: Atraumatic Neck: Supple Cardiovascular: Regular rate, Normal S1 - Procedures Procedures: Procedures Procedure Code Date COLONOSCOPY AND BIOPSY 17938 09/27/15 EGD BIOPSY SINGLE/MULTIPLE 93382 12/02/14 EXCISION OF DUODENUM, ENDO, DIAGN [id number] 12/02/14 EXCISION OF ESOPHAGUS, ENDO, DIAGN [id number] 12/02/14 EXCISION OF RECTUM, ENDO, DIAGN [id number] 12/02/14 GROUP PSYCHOTHERAPY [id number] 06/18/16 Assessment/Plan - Plan Plan: cpm
[2017-10-21] MEDS: INSULIN ASPART SLIDING SCALE 100 UNITS/ML UNIT SUBQ SCH ×4 (07:30→21:24)
[2017-10-21 08:23] LABS: % BASOPHILS 1.6 % (0.0-2.0); % EOSINOPHILS 4.1 % (0.0-5.0); % LYMPHOCYTES 25.6 % (20.0-50.0); % MONOCYTES 7.6 % (2.0-10.0); % NEUTROPHILS 61.1 % (40.0-80.0); BASOPHILE ABSOLUTE 0.1 Th/cumm (0-0.2); EOSINOPHILE ABSOLUTE 0.4 Th/cmm (0.1-0.4); HEMATOCRIT 36.6 % (41.0-60); HEMOGLOBIN 12.4 gm/dL (12-16); LYMPHOCYTE ABSOLUTE 2.3 Th/cmm (1.5-3.0); MEAN CELL VOLUME 84.2 fl (80-99); MEAN CORPUSCULAR HEMOGLOBIN 28.5 pg (27.0-31.0); MEAN CORPUSCULAR HGB CONC 33.8 pg (28.0-36.0); MEAN PLATELET VOLUME 7.5 fl; MONOCYTE ABSOLUTE 0.7 Th/cmm (0.3-1.0); NEUTROPHILE ABSOLUTE 5.5 Th/cmm (1.8-8.0); PLATELET COUNT 331 Th/cmm (150-400); RED BLOOD COUNT 4.35 Mil/cmm (3.80-5.80); RED CELL DISTRIBUTION WIDTH 13.6 % (11.5-20.0)
[2017-10-21 08:41] LABS: ALB/GLOB RATIO 1.3 (1.0-1.8); ALBUMIN 3.6 gm/dL (4.2-5.5); ALKALINE PHOSPHATASE 31 U/L (34-104); ANION GAP 9.3 (7.0-16.0); BILIRUBIN,TOTAL 0.3 mg/dL (0.3-1.0); BUN - UREA NITROGEN 46 mg/dL (7-25); CALCIUM SERUM 8.8 mg/dL (8.6-10.3); CARBON DIOXIDE 20.6 mEq/L (21.0-31.0); CHLORIDE 110 mEq/L (98-107); CREATININE - SERUM 2.2 mg/dL (0.7-1.3); GLUCOSE 98 mg/dL (70-105); POTASSIUM SERUM 4.9 mEq/L (3.5-5.1); SGOT 18 U/L (13-39); SGPT/ALT 15 U/L (7-52); SODIUM SERUM 135 mEq/L (136-145); TOTAL PROTEIN,SERUM 6.4 gm/dL (6.0-8.3)
[2017-10-21] MEDS: Vitamin D3 2,000 IU SGL PO SCH (09:47)
[2017-10-21] MEDS: Multivitamin w/ Minerals Tab PO SCH (09:48)
--- NOTE | 2017-10-21 16:22 | General Progress Note ---
Objective - Results Result Diagrams: 10/21/17 08:05 10/21/17 08:05 Recent Labs: Laboratory Last Values WBC 9.0 Th/cmm (4.8-10.8) 10/21/17 08:05 RBC 4.35 Mil/cmm (3.80-5.80) 10/21/17 08:05 Hgb 12.4 gm/dL (12-16) 10/21/17 08:05 Hct 36.6 % (41.0-60) L 10/21/17 08:05 MCV 84.2 fl (80-99) 10/21/17 08:05 MCH 28.5 pg (27.0-31.0) 10/21/17 08:05 MCHC Differential 33.8 pg (28.0-36.0) 10/21/17 08:05 RDW 13.6 % (11.5-20.0) 10/21/17 08:05 Plt Count 331 Th/cmm (150-400) 10/21/17 08:05 MPV 7.5 fl 10/21/17 08:05 Neutrophils % 61.1 % (40.0-80.0) 10/21/17 08:05 Lymphocytes % 25.6 % (20.0-50.0) 10/21/17 08:05 Monocytes % 7.6 % (2.0-10.0) 10/21/17 08:05 Eosinophils % 4.1 % (0.0-5.0) 10/21/17 08:05 Basophils % 1.6 % (0.0-2.0) 10/21/17 08:05 PT 10.9 SECONDS (9.5-11.5) 10/19/17 10:12 INR 1.05 (0.5-1.4) 10/19/17 10:12 PTT (Actin FS) 28.1 SECONDS (26.0-38.0) 10/19/17 10:12 Sodium 135 mEq/L (136-145) L 10/21/17 08:05 Potassium 4.9 mEq/L (3.5-5.1) 10/21/17 08:05 Chloride 110 mEq/L (98-107) H 10/21/17 08:05 Carbon Dioxide 20.6 mEq/L (21.0-31.0) L 10/21/17 08:05 Anion Gap 9.3 (7.0-16.0) 10/21/17 08:05 BUN 46 mg/dL (7-25) H 10/21/17 08:05 Creatinine 2.2 mg/dL (0.7-1.3) H 10/21/17 08:05 Est GFR ( Amer) TNP 10/21/17 08:05 Est GFR (Non-Af Amer) TNP 10/21/17 08:05 BUN/Creatinine Ratio 20.9 10/21/17 08:05 Glucose 98 mg/dL (70-105) 10/21/17 08:05 POC Glucose 110 MG/DL (70 - 105) H 10/21/17 12:15 Whole Bld Lactic Acid 1.44 mmol/L (0.60-1.99) 10/19/17 10:12 Calcium 8.8 mg/dL (8.6-10.3) 10/21/17 08:05 Total Bilirubin 0.3 mg/dL (0.3-1.0) 10/21/17 08:05 AST 18 U/L (13-39) 10/21/17 08:05 ALT 15 U/L (7-52) 10/21/17 08:05 Alkaline Phosphatase 31 U/L (34-104) L 10/21/17 08:05 Creatine Kinase 51 U/L (30-223) 10/19/17 10:12 Troponin I 0.02 ng/mL (0.01-0.05) 10/19/17 10:12 Total Protein 6.4 gm/dL (6.0-8.3) 10/21/17 08:05 Albumin 3.6 gm/dL (4.2-5.5) L 10/21/17 08:05 Globulin 2.8 gm/dL 10/21/17 08:05 Albumin/Globulin Ratio 1.3 (1.0-1.8) 10/21/17 08:05 Urine Source CLEAN C 10/19/17 10:30 Urine Color YELLOW 10/19/17 10:30 Urine Clarity CLEAR (CLEAR) 10/19/17 10:30 Urine pH 6.5 (4.6 - 8.0) 10/19/17 10:30 Ur Specific [place] 1.015 (1.005-1.030) 10/19/17 10:30 Urine Protein NEGATIVE mg/dL (NEGATIVE) 10/19/17 10:30 Urine Glucose (UA) NEGATIVE mg/dL (NEGATIVE) 10/19/17 10:30 Urine Ketones NEGATIVE mg/dL (NEGATIVE) 10/19/17 10:30 Urine Blood NEGATIVE (NEGATIVE) 10/19/17 10:30 Urine Nitrate NEGATIVE (NEGATIVE) 10/19/17 10:30 Urine Bilirubin NEGATIVE (NEGATIVE) 10/19/17 10:30 Urine Urobilinogen 0.2 E.U./dL (0.2 - 1.0) 10/19/17 10:30 Ur Leukocyte Esterase NEGATIVE (NEGATIVE) 10/19/17 10:30 - Physical Exam Vitals and I&O: Vital Signs Temp 97.4 F 10/21/17 14:49 Pulse 63 10/21/17 14:49 Resp 17 10/21/17 14:49 BP 113/67 10/21/17 14:49 Pulse Ox 97 10/21/17 14:49 Intake & Output 10/20/17 10/21/17 10/21/17 18:59 06:59 18:59 Intake Total 240 Balance 240 Weight (lbs) 79.832 kg Intake: Oral 240 Other: # Voids 3 Stool Characteristics Formed Soft Weight Source Estimated Active Medications: Current Medications Acetaminophen (Tylenol Extra Strength) 1,000 mg PO Q4H PRN PRN Reason: Pain (Moderate) Stop: 12/18/17 22:36 Acetaminophen (Tylenol) 650 mg PO Q4H PRN PRN Reason: pain/[id number]> Stop: 12/18/17 22:36 Amlodipine Besylate (Norvasc) 5 mg PO DAILY [facility] Stop: 12/19/17 08:59 Last Admin: 10/21/17 09:47 Dose: 5 mg Ascorbic Acid (Vitamin C) 500 mg PO DAILY [facility] Stop: 12/19/17 08:59 Last Admin: 10/21/17 09:48 Dose: 500 mg Aspirin (Ecotrin) 81 mg PO DAILY [facility] Stop: 12/19/17 08:59 Last Admin: 10/21/17 09:48 Dose: 81 mg Camphor/Menthol (Bengay Greaseless 10%-15%) 1 appl TP Q4H PRN PRN Reason: RIGHT KNEE PAIN Stop: 12/18/17 22:36 Docusate Sodium (Colace) 100 mg PO DAILY [facility] Stop: 12/19/17 08:59 Last Admin: 10/21/17 09:47 Dose: 100 mg Donepezil HCl (Aricept) 10 mg PO HS [facility] Stop: 12/19/17 20:59 Last Admin: 10/20/17 21:10 Dose: 10 mg Famotidine (Pepcid) 20 mg PO BID [facility] Stop: 12/18/17 16:59 Last Admin: 10/21/17 09:47 Dose: 20 mg Insulin Aspart (Novolog Insulin Sliding Scale) 0 units SUBQ ACHS [facility]; Protocol Stop: 12/19/17 07:29 Last Admin: 10/21/17 07:30 Dose: Not Given Lorazepam (Ativan) 0.5 mg PO Q6H PRN; Protocol PRN Reason: Anxiety Stop: 12/18/17 22:36 Memantine (Namenda) 10 mg PO BID [facility] Stop: 12/19/17 08:59 Last Admin: 10/21/17 09:48 Dose: 10 mg Metoprolol Succinate (Toprol Xl) 25 mg PO DAILY [facility] Stop: 12/19/17 08:59 Last Admin: 10/21/17 09:46 Dose: 25 mg Quetiapine Fumarate (Seroquel) 200 mg PO HS [facility]; Protocol Stop: 12/19/17 20:59 Last Admin: 10/20/17 21:15 Dose: 200 mg Quetiapine Fumarate (Seroquel) 50 mg PO DAILY [facility]; Protocol Stop: 12/19/17 08:59 Last Admin: 10/21/17 09:48 Dose: 50 mg Simvastatin (Zocor) 10 mg PO HS [facility]; Protocol Stop: 12/19/17 20:59 Last Admin: 10/20/17 21:11 Dose: 10 mg Vitamin D (Vitamin D3) 4,000 iu PO DAILY [facility] Stop: 12/19/17 08:59 Last Admin: 10/21/17 09:47 Dose: 4,000 iu Zolpidem Tartrate (Ambien) 5 mg PO HS PRN PRN Reason: Insomnia Stop: 12/18/17 22:36 General: No acute distress HEENT: Atraumatic Neck: Supple Cardiovascular: Regular rate, Normal S1 - Procedures Procedures: Procedures Procedure Code Date COLONOSCOPY AND BIOPSY 78439 12/02/14 EGD BIOPSY SINGLE/MULTIPLE 98686 12/02/14 EXCISION OF DUODENUM, ENDO, DIAGN [id number] 12/02/14 EXCISION OF ESOPHAGUS, ENDO, DIAGN [id number] 12/02/14 EXCISION OF RECTUM, ENDO, DIAGN [id number] 12/02/14 GROUP PSYCHOTHERAPY [id number] 06/18/16 Assessment/Plan - Plan Plan: cpm Nutritional Asmnt/Malnutr-PDOC - Dietary Evaluation Malnutrition Findings (Please click <Entered> for more info): Nutritional Asmnt/Malnutrition Start: 10/20/17 16: 36 Text: Status: Complete Freq: Protocol: Document 10/20/17 16:36 GINA (Rec: 10/20/17 16:53 GINA [id number]) Nutritional Asmnt/Malnutrition Patient General Information Nutritional Screening High Risk Diagnosis RFV: dehydration, weakness, poor oral intake Pertinent Medical Hx/Surgical Hx HTN, DM, dyslipidemia, ESRD, dementia, schizophrenia Subjective Information Per H&P pt had poor intake for 4 days. Pt seen lying in bed at time of visit, awake and alert. Pt stated he is doing fine, eats well, 100% of lunch today. Per EMR, PO intake x 2 meals yesterday. Current Diet Order/ Nutrition Support JENY Pertinent Medications vit C, colace, pepcid, novolog , seroquel, vit D3 Pertinent Labs 10/19 BUN 26, Cr 1.9, glucose 114 10/19-10/20 POC 77-107 Nutritional Hx/Data Height 1.75 m Height (Calculated Centimeters) 175.3 Current Weight (lbs) 79.832 kg Weight (Calculated Kilograms) 79.8 Weight (Calculated Grams) 08117.3 [place] Body Weight 160 Body Mass Index (BMI) 25.9 Weight Status Overweight GI Symptoms GI Symptoms None Last BM 10/19 Difficult in: None Skin Integrity/Comment: intact Current %PO Good (75-100%) Estimated Nutritional Goals BEE in Kcals: Using Current wt Calories/Kcals/Kg 23-27 Kcals Calculated 7187-1316 Protein: Using Current wt Protein g/k.8-1 Protein Calculated 64-80 Fluid: ml 1840-2160ml (1m/kcal) Nutritional Problem No current Nutrition Prob Problem N/A Malnutrition Alert Is there a minimum of two criteria No selected? Query Text:Check all the applicable criteria. A minimum of two criteria are recommended for diagnosis of either severe or non-severe malnutrition. Malnutrition Related to Morbid Obesity Malnutrition related to morbid obesity No Intervention/Recommendation Comments 1. Continue with current diet as ordered. 2. Monitor PO intake, wt, labs and skin integrity 3. F/U as low risk in 7 days, 10/27 Expected Outcomes/Goals Expected Outcomes/Goals 1. PO intake to meet at least 75% of nutritional needs. 2. Wt stability, skin to remain intact, labs to approach WNL.
[2017-10-21] MEDS ORDERED: D5-0.45NS 1,000 ML IV SCH (18:15)
--- NOTE | 2017-10-21 22:50 | Consultation ---
DATE OF CONSULTATION: 10/21/2017 IDENTIFYING INFORMATION: The patient is an 82-year-old male. CHIEF COMPLAINT: No answer. HISTORY OF PRESENT ILLNESS: The patient came to Emergency Room with poor intake, weakness, failure to thrive, abnormal ____. He was admitted for that. The patient was brought by EMS. He was seen in the Emergency Room. The patient apparently with a history of dementia. The patient was a poor historian, unable to engage in any meaningful conversation. PAST PSYCHIATRIC HISTORY: Unobtainable. MEDICAL HISTORY: Encephalopathy, weakness, failure to thrive, poor intake, dehydration. FAMILY HISTORY AND SOCIAL HISTORY: Unobtainable. CURRENT MEDICATIONS: The patient is on amlodipine, aspirin, Calciferol, he is on Aricept 10 mg at bedtime for the dementia as well as Namenda 10 mg twice a day. The patient is also on Seroquel 200 mg at bedtime; however, on 50 mg daily. I was unable to find out why he is taking those medications ____ tell me about because of his agitation. MENTAL STATUS EXAMINATION: The patient is appropriately dressed, not groomed. He was in bed. He was somewhat alert, but would not answer any of my question, ignore my presence. He has encephalopathy, unable to engage in any meaningful conversation or make safe plan for self-care. His long or short-term memory is poor. Insight and judgment is impaired. Unable to answer if he is hearing voices or seeing things or any suicidal ideation. 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 MEDICAL DIAGNOSES: As per medical doctor. Recommend to continue medication. The patient needs follow up with the psychiatrist upon discharge. Thank you very much for allowing me to participate in the care of this most interesting lady. JOB# [id number]
[2017-10-22] MEDS: INSULIN ASPART SLIDING SCALE 100 UNITS/ML UNIT SUBQ SCH ×2 (08:00→12:44)
[2017-10-22] MEDS: Multivitamin w/ Minerals Tab PO SCH (09:25)
[2017-10-22] MEDS: Vitamin D3 2,000 IU SGL PO SCH (09:25)
[2017-10-22 09:41] LABS: % BASOPHILS 1.6 % (0.0-2.0); % EOSINOPHILS 4.5 % (0.0-5.0); % LYMPHOCYTES 22.1 % (20.0-50.0); % MONOCYTES 7.8 % (2.0-10.0); BASOPHILE ABSOLUTE 0.1 Th/cumm (0-0.2); EOSINOPHILE ABSOLUTE 0.4 Th/cmm (0.1-0.4); HEMATOCRIT 37.8 % (41.0-60); HEMOGLOBIN 12.7 gm/dL (12-16); LYMPHOCYTE ABSOLUTE 1.8 Th/cmm (1.5-3.0); MEAN CELL VOLUME 84.4 fl (80-99); MEAN CORPUSCULAR HEMOGLOBIN 28.3 pg (27.0-31.0); MEAN CORPUSCULAR HGB CONC 33.5 pg (28.0-36.0); MEAN PLATELET VOLUME 7.5 fl; MONOCYTE ABSOLUTE 0.6 Th/cmm (0.3-1.0); NEUTROPHILE ABSOLUTE 5.1 Th/cmm (1.8-8.0); PLATELET COUNT 300 Th/cmm (150-400); RED BLOOD COUNT 4.47 Mil/cmm (3.80-5.80); RED CELL DISTRIBUTION WIDTH 13.8 % (11.5-20.0)
[2017-10-22 10:00] LABS: ALB/GLOB RATIO 1.2 (1.0-1.8); ALBUMIN 3.6 gm/dL (4.2-5.5); ALKALINE PHOSPHATASE 32 U/L (34-104); ANION GAP 9.4 (7.0-16.0); BILIRUBIN,TOTAL 0.2 mg/dL (0.3-1.0); BUN - UREA NITROGEN 42 mg/dL (7-25); CALCIUM SERUM 9.1 mg/dL (8.6-10.3); CARBON DIOXIDE 23.9 mEq/L (21.0-31.0); CHLORIDE 106 mEq/L (98-107); CREATININE - SERUM 1.9 mg/dL (0.7-1.3); GLUCOSE 116 mg/dL (70-105); POTASSIUM SERUM 4.3 mEq/L (3.5-5.1); SGOT 17 U/L (13-39); SGPT/ALT 14 U/L (7-52); SODIUM SERUM 135 mEq/L (136-145); TOTAL PROTEIN,SERUM 6.6 gm/dL (6.0-8.3)
--- NOTE | 2017-10-23 02:19 | Progress Notes ---
DATE: 10/22/2017 Case was discussed with staff of the patient, reviewed records. The patient today was alert. He was feeding himself, but he was very confused, unable to participate in a meaningful conversation or make safe plan for self-care. He kept grabbing at my badge, sometimes hard to redirect. He is demented, confused. He is on Aricept 10 mg at bedtime, Namenda 10 mg twice a day and Seroquel 200 mg at bedtime and 50 mg daily with no side effects, no sedation, no nausea, no extrapyramidal symptoms. The patient needs follow up with the psychiatrist upon discharge. Thank you very much for allowing me to participate in the care of this most in interesting gentleman. JOB# [id number]
--- NOTE | 2017-10-23 10:50 | Consultation ---
DATE OF CONSULTATION: 10/22/2017 FAMILY LAW MEDIATOR: Sulaiman Corley MD REASON FOR CONSULTATION: Kidney failure, electrolyte imbalance and fluid management. HISTORY OF PRESENT ILLNESS: This is an 82-year-old male with past medical history of Alzheimer's dementia, who was brought in because of poor oral intake. A few days prior to admission, the patient's appetite had deteriorated. This has led to gradual development of weakness. A few hours prior to admission, his condition deteriorated and became weaker. Thus, he was brought to the Emergency Room. His white count was 9 and remained afebrile. Chest x-ray revealed mild increased left basal lung markings. His BUN/creatinine were 46/2.2. Repeat labs today showed a BUN/creatinine of 42/1.9. He has no history of nausea and vomiting as well as diarrhea. PAST MEDICAL HISTORY: 1. Chronic kidney disease. 2. Essential hypertension. 3. Type 2 diabetes mellitus. 4. Dyslipidemia. 5. Alzheimer dementia. 6. Schizophrenia. CURRENT MEDICATIONS: He is currently on acetaminophen, amlodipine, ascorbic acid, aspirin, clonidine, docusate sodium, donepezil, famotidine, megestrol acetate, Namenda, metoprolol, quetiapine, simvastatin, zolpidem. ALLERGIES: No known drug allergies. SOCIAL AND FAMILY HISTORY: I was not able to obtain from the patient because of his dementia. REVIEW OF SYSTEMS: Again, I was not able to decipher directly from the patient because of the same reason. PHYSICAL EXAMINATION: GENERAL: The patient is awake, not in any form of distress, would respond to with short answer. VITAL SIGNS: Temperature is 97.6 degrees, pulse is 69, BP 140/72. SKIN: Poor turgor, warm. No rash, no jaundice appreciated. HEENT: Head normocephalic, atraumatic. Eyes, extraocular muscles intact. Pupils equal, round, reactive to light and accommodates. Anicteric sclerae. Pale conjunctivae. Nose, midline nasal septum. Mouth; dry mucosa, adequate dentition. NECK: Supple, no adenopathy, no thyromegaly, no bruits. Trachea palpated in the midline. CHEST AND CVS: S1 and S2. No rub, murmur nor gallop appreciated. Point of maximal impulse fifth intercostal space, left midclavicular line. No abdominal or femoral bruits appreciated. LUNGS: Equal expansion, no use of accessory muscles. No supraclavicular retractions. Decreased breath sounds, but clear to auscultation without any wheeze. ABDOMEN: Globular, soft. Positive for bowel sounds. No bruits either diastolic or systolic. RECTAL: Lax sphincter tone. GENITOURINARY: Normal appearing male genitalia. MUSCULOSKELETAL: No effusions present in his joints with adequate range of motion. EXTREMITIES: No evidence of any edema, cyanosis nor clubbing with palpable femoral, popliteal and dorsalis pedis pulses. NEUROLOGIC: The patient is awake, unable to follow my neuro commands, so I was not able to pursue further my neuro exam. LABORATORY DATA AND STUDIES: Labs did reveal sodium of 135, potassium 4.3, chloride 106, bicarb 23, BUN 42, creatinine 1.9, glucose 116, albumin 3.6. White count 8, hemoglobin 12.7, hematocrit 37.8, platelets 300. IMPRESSION: 1. Chronic kidney disease. 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 2. Failure to thrive, which has improved. 3. Essential hypertension with chronic kidney disease. 4. Type 2 diabetes mellitus with chronic kidney disease. 5. Dyslipidemia. 6. Alzheimer dementia. 7. Schizophrenia. PLAN: Kidney function has remained stable since admission. The patient started eating and drinking. His condition has improved since admission. He is cleared for discharge from renal point of view. He just needs his electrolytes monitored at the F and continue to encourage p.o. intake. [facility]# [id number]
== END 2017-10-22 17:27 | DRG 640 ==
LOC: ER 09:42 → MSI 11:30
PROVIDERS: ADMIT Internal Medicine; ATTEND Internal Medicine
DX: E86.0 Dehydration (principal); G93.40 Encephalopathy, unspecified; R62.7 Adult failure to thrive; I12.9 Hypertensive chronic kidney disease with stage 1 through stage 4 chronic kidney disease, or unspecified chronic kidney disease; E11.22 Type 2 diabetes mellitus with diabetic chronic kidney disease; N18.9 Chronic kidney disease, unspecified; Z66 Do not resuscitate; F02.80 Dementia in other diseases classified elsewhere, unspecified severity, without behavioral disturbance, psychotic disturbance, mood disturbance, and anxiety; G30.9 Alzheimer's disease, unspecified; E78.5 Hyperlipidemia, unspecified; E11.21 Type 2 diabetes mellitus with diabetic nephropathy; Z82.49 Family history of ischemic heart disease and other diseases of the circulatory system; F20.9 Schizophrenia, unspecified; Z83.3 Family history of diabetes mellitus
CPT/HCPCS: 36415-UA; 71045-TC; 80053-TC; 81003-TC; 82550-TC; 82948-90; 83605; 84484-TC; 85025-TC; 85610-TC; 85730-TC; J1815; Z7610

== ENCOUNTER 2018-08-04 10:30 | Inpatient (IN) | payer MEDICARE, MEDICAID ==
--- NOTE | 2018-08-04 10:57 | ED Physician Chart ---
ED Chief Complaint/HPI - Patient Information Date Seen:: 08/04/18 Time Seen:: 10:50 Chief Complaint:: aggressive behavior History of Present Illness:: Patient has reportedly been exhibiting aggressive behavior including striking staff at his extended care facility. It was also related to the RN that he has been exhibiting inappropriate sexual behavior. Allergies:: Allergies Allergy/AdvReac Type Severity Reaction Status Date / Time No Known Allergies Allergy Verified 08/04/18 10:45 Vitals:: Vital Signs - 8 hr 08/04/18 10:40 Temp 98.6 F HR 82 RR 18 BP 157/73 O2 Sat % 97 Historian:: Patient Review:: Transfer documents Reviewed ED Review of Systems - Review of Systems General/Constitutional: No fever, No chills, No weight loss, No weakness, No diaphoresis, No edema, No loss of appetite Skin: No skin lesions, No rash, No bruising Head: No headache, No light-headedness Eyes: No loss of vision, No pain, No diplopia ENT: No earache, No nasal drainage, No sore throat, No tinnitus Neck: No neck pain, No swelling, No thyromegaly, No stiffness, No mass noted Cardio Vascular: No chest pain, No palpitations, No PND, No orthopnea, No edema Pulmonary: No SOB, No cough, No sputum, No wheezing GI: No nausea, No vomiting, No diarrhea, No pain, No melena, No hematochezia, No constipation, No hematemesis G/U: No dysuria, No frequency, No hematuria Musculoskeletal: No bone or joint pain, No back pain, No muscle pain Endocrine: No polyuria, No polydipsia Psychiatric: Prior psych history Hematopoietic: No bruising, No lymphadenopathy Allergic/Immuno: No urticaria, No angioedema Neurological: No syncope, No focal symptoms, No weakness, No paresthesia, No headache, No seizure, No dizziness, No confusion, No vertigo ED Past Medical History - Past Medical History Past Medical History: HTN, DM, Dyslipidemia, PUD/GERD, Arthritis, Dementia, Other (hyperlipidemia; schizophrenia; psychosis; anxiety; insomnia; right knee pain; chronic renal disease) Family History: None Social History: Smoker, Care Facility Surgical History: None Psychiatricy History: Schizophrenia, Dementia Medication: Reviewed Family Medical History - Family Member Mother History Unknown: Yes Ethnicity: Living Status: Still Living Hx Family Cancer: No Hx Family Coronary Artery Disease: No Hx Family Congestive Heart Failure: No Hx Family Hypertension: No Hx Family Stroke: No Hx Family Diabetes: No Hx Family Seizures: No Hx Family Dementia: No Hx Family AIDS: No Hx Family HIV: No Hx Family COPD: No Hx Family Hepatitis: No Hx Family Psychiatric Problems: No Hx Family Tuberculosis: No ED Physical Exam - Physical Examination General/Constitutional: Awake, Well-developed, well-nourished, Alert, No distress Other Gen/Cons comments:: knows the correct month and states it is 2017 Eyes: Lids, conjuctiva normal, PERRL Skin: Nl inspection ENMT: External ears, nose nl Other ENMT comments:: Upper teeth absent; 4 out of 4 periodontal disease lower teeth Neck: No nuchal rigidity Respiratory: Nl effort/Exclusion, Clear to Auscultation Cardio Vascular: No murmur, gallop, rubs Other Cardio Vascular comments:: Heart sounds faint GI: No tenderness/rebounding/guarding, No organomegaly, No hernia, Normal BS's, Nondistended, No mass/bruits Extremities: Normal digits & nails Neuro/Psych: No focal deficits ED Labs/Radiology/EKG Results - Lab Results Results: Laboratory Results Sodium 136 mEq/L (136-145) 08/04/18 11:10 Potassium 4.7 mEq/L (3.5-5.1) 08/04/18 11:10 Chloride 104 mEq/L (98-107) 08/04/18 11:10 Carbon Dioxide 25.4 mEq/L (21.0-31.0) 08/04/18 11:10 Anion Gap 11.3 (7.0-16.0) 08/04/18 11:10 BUN 28 mg/dL (7-25) H 08/04/18 11:10 Creatinine 1.5 mg/dL (0.7-1.3) H 08/04/18 11:10 Est GFR ( Amer) TNP 08/04/18 11:10 Est GFR (Non-Af Amer) TNP 08/04/18 11:10 BUN/Creatinine Ratio 18.7 08/04/18 11:10 Glucose 101 mg/dL (70-105) 08/04/18 11:10 Calcium 9.6 mg/dL (8.6-10.3) 08/04/18 11:10 Total Bilirubin 0.3 mg/dL (0.3-1.0) 08/04/18 11:10 AST 14 U/L (13-39) 08/04/18 11:10 ALT 16 U/L (7-52) 08/04/18 11:10 Alkaline Phosphatase 104 U/L (34-104) 08/04/18 11:10 Total Protein 7.5 gm/dL (6.0-8.3) 08/04/18 11:10 Albumin 3.9 gm/dL (4.2-5.5) L 08/04/18 11:10 Globulin 3.6 gm/dL 08/04/18 11:10 Albumin/Globulin Ratio 1.1 (1.0-1.8) 08/04/18 11:10 Triglycerides 314 mg/dL (<150) H 08/04/18 11:10 Cholesterol 153 mg/dL (<200) 08/04/18 11:10 LDL Cholesterol Direct 82 mg/dL (75-193) 08/04/18 11:10 HDL Cholesterol 30 mg/dL (23-92) 08/04/18 11:10 Salicylates < 25.0 mg/L (30.0-100.0) L 08/04/18 11:10 Urine Opiates Screen NEGATIVE (NEGATIVE) 08/04/18 11:10 Urine Methadone Screen NEGATIVE (NEGATIVE) 08/04/18 11:10 Acetaminophen < 10.0 ug/mL (10.0-30.0) L 08/04/18 11:10 Ur Barbiturates Screen NEGATIVE (NEGATIVE) 08/04/18 11:10 Ur Tricyclics Screen POSITIVE (NEGATIVE) H 08/04/18 11:10 Ur Phencyclidine Scrn NEGATIVE (NEGATIVE) 08/04/18 11:10 Amphetamines Screen NEGATIVE (NEGATIVE) 08/04/18 11:10 U Methamphetamines Scrn NEGATIVE (NEGATIVE) 08/04/18 11:10 U Benzodiazepines Scrn NEGATIVE (NEGATIVE) 08/04/18 11:10 U Cocaine Metab Screen NEGATIVE (NEGATIVE) 08/04/18 11:10 U Cannabinoids Screen NEGATIVE (NEGATIVE) 08/04/18 11:10 Ethyl Alcohol < 10 mg/dL (0-10) 08/04/18 11:10 Laboratory Results Sodium 136 mEq/L (136-145) 08/04/18 11:10 Potassium 4.7 mEq/L (3.5-5.1) 08/04/18 11:10 Chloride 104 mEq/L (98-107) 08/04/18 11:10 Carbon Dioxide 25.4 mEq/L (21.0-31.0) 08/04/18 11:10 Anion Gap 11.3 (7.0-16.0) 08/04/18 11:10 BUN 28 mg/dL (7-25) H 08/04/18 11:10 Creatinine 1.5 mg/dL (0.7-1.3) H 08/04/18 11:10 Est GFR ( Amer) TNP 08/04/18 11:10 Est GFR (Non-Af Amer) TNP 08/04/18 11:10 BUN/Creatinine Ratio 18.7 08/04/18 11:10 Glucose 101 mg/dL (70-105) 08/04/18 11:10 Calcium 9.6 mg/dL (8.6-10.3) 08/04/18 11:10 Total Bilirubin 0.3 mg/dL (0.3-1.0) 08/04/18 11:10 AST 14 U/L (13-39) 08/04/18 11:10 ALT 16 U/L (7-52) 08/04/18 11:10 Alkaline Phosphatase 104 U/L (34-104) 08/04/18 11:10 Total Protein 7.5 gm/dL (6.0-8.3) 08/04/18 11:10 Albumin 3.9 gm/dL (4.2-5.5) L 08/04/18 11:10 Globulin 3.6 gm/dL 08/04/18 11:10 Albumin/Globulin Ratio 1.1 (1.0-1.8) 08/04/18 11:10 Triglycerides 314 mg/dL (<150) H 08/04/18 11:10 Cholesterol 153 mg/dL (<200) 08/04/18 11:10 LDL Cholesterol Direct 82 mg/dL (75-193) 08/04/18 11:10 HDL Cholesterol 30 mg/dL (23-92) 08/04/18 11:10 Salicylates < 25.0 mg/L (30.0-100.0) L 08/04/18 11:10 Urine Opiates Screen NEGATIVE (NEGATIVE) 08/04/18 11:10 Urine Methadone Screen NEGATIVE (NEGATIVE) 08/04/18 11:10 Acetaminophen < 10.0 ug/mL (10.0-30.0) L 08/04/18 11:10 Ur Barbiturates Screen NEGATIVE (NEGATIVE) 08/04/18 11:10 Ur Tricyclics Screen POSITIVE (NEGATIVE) H 08/04/18 11:10 Ur Phencyclidine Scrn NEGATIVE (NEGATIVE) 08/04/18 11:10 Amphetamines Screen NEGATIVE (NEGATIVE) 08/04/18 11:10 U Methamphetamines Scrn NEGATIVE (NEGATIVE) 08/04/18 11:10 U Benzodiazepines Scrn NEGATIVE (NEGATIVE) 08/04/18 11:10 U Cocaine Metab Screen NEGATIVE (NEGATIVE) 08/04/18 11:10 U Cannabinoids Screen NEGATIVE (NEGATIVE) 08/04/18 11:10 Ethyl Alcohol < 10 mg/dL (0-10) 08/04/18 11:10 - EKG Interpretations Rate & Rhythm: normal sinus rhythm with a rate of 82 [place]: right axis deviation Comments:: Right bundle-branch block ED Assessment - Assessment General Assessment: Patient is medically clear contingent upon a CBC returned normal. CBC has been sent out to send the rest. ED Septic Shock - . Is Septic Shock (SBP<90, OR Lactate>4 mmol\L) present?: No - <6hrs of presentation: Vital Signs: Vital Signs - 8 hr 08/04/18 10:40 Temp 98.6 F HR 82 RR 18 BP 157/73 O2 Sat % 97 ED Reassessment (Disposition) - Reassessment Reassessment Condition:: Unchanged - Diagnosis Diagnosis:: Dementia with aggressive behavior; diabetes; schizophrenia - Patient Disposition Admitted to:: [facility] Admitting Medical Physician:: Trino Avila Admitting Psych Physician:: Hari Carrasco Condition at Disposition:: Stable, Unchanged
[2018-08-04 11:18] LABS: URINE SOURCE CLEAN C
[2018-08-04 11:32] LABS: URINE BILIRUBIN NEGATIVE (NEGATIVE); URINE BLOOD NEGATIVE (NEGATIVE); URINE GLUCOSE (UA) NEGATIVE (NEGATIVE); URINE KETONE NEGATIVE (NEGATIVE); URINE LEUKOCYTE ESTERASE NEGATIVE (NEGATIVE); URINE MICROSCOPIC INDICATED? YES; URINE NITRATE NEGATIVE (NEGATIVE); URINE PROTEIN TRACE mg/dL (NEGATIVE); URINE UROBILINOGEN 0.2 E.U./dL (0.2 - 1.0)
[2018-08-04 11:42] LABS: AMPHETAMINE URINE NEGATIVE (NEGATIVE); BARBITURATES URINE NEGATIVE (NEGATIVE); BENZODIAZEPINES QUAL URINE NEGATIVE (NEGATIVE); CANNABINOID THC NEGATIVE (NEGATIVE); COCAINE METABOLITE QUAL URINE NEGATIVE (NEGATIVE); METHADONE URINE NEGATIVE (NEGATIVE); METHAMPHETAMINES QUAL URINE NEGATIVE (NEGATIVE); OPIATES (MORPHINE) QUAL. URINE NEGATIVE (NEGATIVE); PHENCYCLIDINE (PCP) URINE NEGATIVE (NEGATIVE); TRICYCLICS (TCA) QUAL. URINE POSITIVE (NEGATIVE)
[2018-08-04 11:47] LABS: ACETAMINOPHEN < 10.0 ug/mL (10.0-30.0); ALB/GLOB RATIO 1.1 (1.0-1.8); ALBUMIN 3.9 gm/dL (4.2-5.5); ALKALINE PHOSPHATASE 104 U/L (34-104); ANION GAP 11.3 (7.0-16.0); BILIRUBIN,TOTAL 0.3 mg/dL (0.3-1.0); BUN - UREA NITROGEN 28 mg/dL (7-25); CALCIUM SERUM 9.6 mg/dL (8.6-10.3); CARBON DIOXIDE 25.4 mEq/L (21.0-31.0); CHLORIDE 104 mEq/L (98-107); CHOLESTEROL 153 mg/dL (<200); CREATININE - SERUM 1.5 mg/dL (0.7-1.3); GLUCOSE 101 mg/dL (70-105); HDL -HIGH DENSITY LIPOPROTEIN 30 mg/dL (23-92); POTASSIUM SERUM 4.7 mEq/L (3.5-5.1); SGOT 14 U/L (13-39); SGPT/ALT 16 U/L (7-52); SODIUM SERUM 136 mEq/L (136-145); TOTAL PROTEIN,SERUM 7.5 gm/dL (6.0-8.3); TRIGLYCERIDES 314 mg/dL (<150)
[2018-08-04 12:06] LABS: URINE CLARITY CLEAR (CLEAR); URINE COLOR YELLOW
[2018-08-04 12:07] LABS: URINE BACTERIA NONE SEEN /hpf (NONE SEEN); URINE EPITHELIAL CELLS OCCASIONAL /lpf (FEW); URINE RBC 0-2 /hpf (0-5); URINE WBC 0-2 /hpf (0-5)
[2018-08-04 13:25] LABS: WHITE BLOOD COUNT 9.5 Th/cmm (4.8-10.8)
[2018-08-04 13:26] LABS: RED BLOOD COUNT 5.14 Mil/cmm (3.80-5.80)
[2018-08-04 13:27] LABS: % NEUTROPHILS 64.7 % (40.0-80.0); HEMATOCRIT 41.8 % (41.0-60); HEMOGLOBIN 13.6 gm/dL (12-16); MEAN CELL VOLUME 81.2 fl (80-99); MEAN CORPUSCULAR HEMOGLOBIN 26.4 pg (27.0-31.0); MEAN CORPUSCULAR HGB CONC 32.5 pg (28.0-36.0); PLATELET COUNT 292 Th/cmm (150-400); RED CELL DISTRIBUTION WIDTH 14.1 % (11.5-20.0)
[2018-08-04 13:28] LABS: % BASOPHILS 0.8 % (0.0-2.0); % EOSINOPHILS 3.3 % (0.0-5.0); % MONOCYTES 8.2 % (2.0-10.0)
[2018-08-04 13:33] LABS: CORRECTED WBC 9.5 Th/cmm
[2018-08-04 13:35] LABS: EOSINOPHILE ABSOLUTE 0.3 Th/cmm (0.1-0.4); LYMPHOCYTE ABSOLUTE 2.2 Th/cmm (1.5-3.0); MONOCYTE ABSOLUTE 0.8 Th/cmm (0.3-1.0); NEUTROPHILE ABSOLUTE 6.1 Th/cmm (1.8-8.0)
[2018-08-04 13:36] LABS: BASOPHILE ABSOLUTE 0.1 Th/cumm (0-0.2)
[2018-08-04 14:23] VITALS: BP 144/77
[2018-08-04] MEDS ORDERED: Magnesium Hydroxide (MOM) 30 mL UDC PO PRN (15:13)
[2018-08-04] MEDS ORDERED: Maalox 30 mL Cup PO PRN (15:17)
[2018-08-04] MEDS ORDERED: GLUCAGON HCl 1 MG KIT IM PRN (15:31)
[2018-08-04] MEDS ORDERED: Dextrose 50% 50 mL Abboject IVP PRN (15:31)
[2018-08-04] MEDS: INSULIN LISPRO SLIDING SCALE 100 UNITS/ML UNIT SUBQ SCH ×2 (17:36→21:06)
--- NOTE | 2018-08-04 19:06 | History & Physical ---
ADMIT DATE: 08/04/2018 DICTATED FOR: Dr. Avila. CHIEF COMPLAINT: Aggressive behavior. HISTORY OF PRESENT ILLNESS: An 82-year-old male, who is a intermediate resident, admitted to the Geropsych Unit due to aggressive behavior. The patient was also having some inappropriate sexual behavior towards nursing staff at the intermediate. PAST MEDICAL HISTORY: Hypertension, diabetes, dyslipidemia, GERD, arthritis, dementia, hyperlipidemia, schizophrenia, psychosis, anxiety, insomnia, right knee pain, chronic renal disease. FAMILY HISTORY: Noncontributory. SOCIAL HISTORY: The patient is a smoker and also intermediate resident. PAST SURGICAL HISTORY: None. MEDICATIONS: See medication list. REVIEW OF SYSTEMS: GENERAL: Denies any fever or chills. CARDIOVASCULAR: Denies chest pain. RESPIRATORY: Denies shortness of breath. GASTROINTESTINAL: Denies nausea, vomiting, abdominal pain. GENITOURINARY: Denies increased frequency. NEUROLOGIC: No headaches, seizures, or syncope. All systems reviewed and negative. PHYSICAL EXAMINATION: GENERAL: The patient is well-developed, well-nourished, in no apparent distress. VITAL SIGNS: Temperature 98.8, heart rate 95, blood pressure 159/69, respirations 16, O2 of 95%. HEENT: Head normocephalic, atraumatic. NECK: Supple. No mass. LUNGS: Clear bilaterally. HEART: Regular rhythm. ABDOMEN: Soft, nontender. LABORATORY DATA: WBC 9.5, H and H of 13.6 and 41.8, platelets 292. Sodium 136, potassium 4.7, chloride 104, BUN 28, creatinine 1.5. ASSESSMENT: Hypertension, diabetes, dyslipidemia, dementia, psychosis, anxiety, chronic right knee pain, chronic renal disease. PLAN: We will continue the patient's home medications. Fall precautions will be initiated. We will continue to follow this patient. JOB# [id number]
[2018-08-05 06:06] LABS: A1C 5.9 % (4.8-5.6)
[2018-08-05] MEDS: INSULIN LISPRO SLIDING SCALE 100 UNITS/ML UNIT SUBQ SCH ×4 (06:30→20:41)
[2018-08-05] MEDS: Multivitamin w/ Minerals Tab PO SCH (08:24)
[2018-08-05] MEDS ORDERED: Multivitamin w/ Minerals Tab PO SCH (09:00)
[2018-08-05] MEDS ORDERED: Aspirin 81mg Chewable Tab PO SCH (09:00)
--- NOTE | 2018-08-05 10:55 | Internal Medicine Prog Note ---
Internal Medicine Subjective - Subjective Service Date: 08/05/18 Patient seen and examined:: with staff Patient is:: awake, verbal, agitated Patient Complaints of:: other (admitted due to having inappropriate sexual behavior towards staff.) Per staff patient has:: no adverse event, no episodes of fall Internal Medicine Objective - Results Result Diagrams: 08/04/18 11:10 08/04/18 11:10 Recent Labs: Laboratory Last Values WBC 9.5 Th/cmm (4.8-10.8) 08/04/18 11:10 Corrected WBC (auto) 9.5 Th/cmm 08/04/18 11:10 RBC 5.14 Mil/cmm (3.80-5.80) 08/04/18 11:10 Hgb 13.6 gm/dL (12-16) 08/04/18 11:10 Hct 41.8 % (41.0-60) 08/04/18 11:10 MCV 81.2 fl (80-99) 08/04/18 11:10 MCH 26.4 pg (27.0-31.0) L 08/04/18 11:10 MCHC Differential 32.5 pg (28.0-36.0) 08/04/18 11:10 RDW 14.1 % (11.5-20.0) 08/04/18 11:10 Plt Count 292 Th/cmm (150-400) 08/04/18 11:10 MPV 8.0 fl 08/04/18 11:10 Add Manual Diff Not Reportable 08/04/18 11:10 Neutrophils % 64.7 % (40.0-80.0) 08/04/18 11:10 Lymphocytes % 23.0 % (20.0-50.0) 08/04/18 11:10 Monocytes % 8.2 % (2.0-10.0) 08/04/18 11:10 Eosinophils % 3.3 % (0.0-5.0) 08/04/18 11:10 Basophils % 0.8 % (0.0-2.0) 08/04/18 11:10 Sodium 136 mEq/L (136-145) 08/04/18 11:10 Potassium 4.7 mEq/L (3.5-5.1) 08/04/18 11:10 Chloride 104 mEq/L (98-107) 08/04/18 11:10 Carbon Dioxide 25.4 mEq/L (21.0-31.0) 08/04/18 11:10 Anion Gap 11.3 (7.0-16.0) 08/04/18 11:10 BUN 28 mg/dL (7-25) H 08/04/18 11:10 Creatinine 1.5 mg/dL (0.7-1.3) H 08/04/18 11:10 Est GFR ( Amer) TNP 08/04/18 11:10 Est GFR (Non-Af Amer) TNP 08/04/18 11:10 BUN/Creatinine Ratio 18.7 08/04/18 11:10 Glucose 101 mg/dL (70-105) 08/04/18 11:10 POC Glucose 117 MG/DL (70 - 105) H 08/04/18 17:05 Calcium 9.6 mg/dL (8.6-10.3) 08/04/18 11:10 Total Bilirubin 0.3 mg/dL (0.3-1.0) 08/04/18 11:10 AST 14 U/L (13-39) 08/04/18 11:10 ALT 16 U/L (7-52) 08/04/18 11:10 Alkaline Phosphatase 104 U/L (34-104) 08/04/18 11:10 Total Protein 7.5 gm/dL (6.0-8.3) 08/04/18 11:10 Albumin 3.9 gm/dL (4.2-5.5) L 08/04/18 11:10 Globulin 3.6 gm/dL 08/04/18 11:10 Albumin/Globulin Ratio 1.1 (1.0-1.8) 08/04/18 11:10 Triglycerides 314 mg/dL (<150) H 08/04/18 11:10 Cholesterol 153 mg/dL (<200) 08/04/18 11:10 LDL Cholesterol Direct 82 mg/dL (75-193) 08/04/18 11:10 HDL Cholesterol 30 mg/dL (23-92) 08/04/18 11:10 TSH 3.03 uIU/ml (0.34-5.60) 08/04/18 11:10 Urine Source CLEAN C 08/04/18 11:10 Urine Color YELLOW 08/04/18 11:10 Urine Clarity CLEAR (CLEAR) 08/04/18 11:10 Urine pH 6.0 (4.6 - 8.0) 08/04/18 11:10 Ur Specific [place] 1.010 (1.005-1.030) 08/04/18 11:10 Urine Protein TRACE mg/dL (NEGATIVE) 08/04/18 11:10 Urine Glucose (UA) NEGATIVE mg/dL (NEGATIVE) 08/04/18 11:10 Urine Ketones NEGATIVE mg/dL (NEGATIVE) 08/04/18 11:10 Urine Blood NEGATIVE (NEGATIVE) 08/04/18 11:10 Urine Nitrate NEGATIVE (NEGATIVE) 08/04/18 11:10 Urine Bilirubin NEGATIVE (NEGATIVE) 08/04/18 11:10 Urine Urobilinogen 0.2 E.U./dL (0.2 - 1.0) 08/04/18 11:10 Ur Leukocyte Esterase NEGATIVE (NEGATIVE) 08/04/18 11:10 Urine RBC 0-2 /hpf (0-5) H 08/04/18 11:10 Urine WBC 0-2 /hpf (0-5) 08/04/18 11:10 Ur Epithelial Cells OCCASIONAL /lpf (FEW) 08/04/18 11:10 Urine Bacteria NONE SEEN /hpf (NONE SEEN) 08/04/18 11:10 Salicylates < 25.0 mg/L (30.0-100.0) L 08/04/18 11:10 Urine Opiates Screen NEGATIVE (NEGATIVE) 08/04/18 11:10 Urine Methadone Screen NEGATIVE (NEGATIVE) 08/04/18 11:10 Acetaminophen < 10.0 ug/mL (10.0-30.0) L 08/04/18 11:10 Ur Barbiturates Screen NEGATIVE (NEGATIVE) 08/04/18 11:10 Ur Tricyclics Screen POSITIVE (NEGATIVE) H 08/04/18 11:10 Ur Phencyclidine Scrn NEGATIVE (NEGATIVE) 08/04/18 11:10 Amphetamines Screen NEGATIVE (NEGATIVE) 08/04/18 11:10 U Methamphetamines Scrn NEGATIVE (NEGATIVE) 08/04/18 11:10 U Benzodiazepines Scrn NEGATIVE (NEGATIVE) 08/04/18 11:10 U Cocaine Metab Screen NEGATIVE (NEGATIVE) 08/04/18 11:10 U Cannabinoids Screen NEGATIVE (NEGATIVE) 08/04/18 11:10 Ethyl Alcohol < 10 mg/dL (0-10) 08/04/18 11:10 RPR NONREACTIVE (NONREACTIVE) 08/04/18 11:10 - Physical Exam Vitals and I&O: Vital Signs Temp 96.9 F 08/05/18 06:00 Pulse 90 08/05/18 08:26 Resp 19 08/05/18 06:00 BP 170/85 08/05/18 08:26 Pulse Ox 96 08/05/18 06:00 Intake & Output 08/04/18 08/05/18 08/05/18 18:59 06:59 18:59 Weight (lbs) 83.915 kg Other: Weight Source Patient stated Active Medications: Current Medications Acetaminophen (Tylenol) 650 mg PO Q6H PRN PRN Reason: Pain (Mild) Stop: 10/03/18 15:17 Acetaminophen (Tylenol) 650 mg PO Q4H PRN PRN Reason: mild pain/[id number]> Stop: 10/03/18 18:07 Al Hydrox/Mg Hydrox/Simethicone (Maalox) 30 ml PO Q4HR PRN PRN Reason: GI DISTRESS Stop: 10/03/18 15:16 Amlodipine Besylate (Norvasc) 5 mg PO DAILY [facility] Stop: 10/04/18 08:59 Last Admin: 08/05/18 08:25 Dose: 5 mg Ascorbic Acid (Vitamin C) 500 mg PO DAILY [facility] Stop: 10/04/18 08:59 Last Admin: 08/05/18 08:25 Dose: 500 mg Aspirin (Ecotrin) 81 mg PO DAILY [facility] Stop: 10/04/18 08:59 Last Admin: 08/05/18 08:25 Dose: 81 mg Cholecalciferol (Vitamin D3) 5,000 iu PO DAILY [facility] Stop: 10/04/18 08:59 Last Admin: 08/05/18 08:26 Dose: 5,000 iu Dextrose (D50w) 50 ml IVP PRN PRN PRN Reason: Blood Glucose less than 70 Stop: 10/03/18 15:30 Dextrose (Glutose 40%) 18.75 gm PO PRN PRN PRN Reason: Blood Glucose less than 70 Stop: 10/03/18 15:30 Docusate Sodium (Colace) 100 mg PO DAILY [facility] Stop: 10/04/18 08:59 Last Admin: 08/05/18 08:28 Dose: 100 mg Donepezil HCl (Aricept) 10 mg PO HS [facility] Stop: 10/03/18 20:59 Last Admin: 08/04/18 21:04 Dose: 10 mg Famotidine (Pepcid) 20 mg PO BID [facility] Stop: 10/03/18 16:59 Last Admin: 08/05/18 08:28 Dose: 20 mg Famotidine (Pepcid) 20 mg PO BID [facility] Stop: 10/04/18 08:59 Glucagon (Glucagen) 1 mg IM PRN PRN PRN Reason: Blood Glucose less than 70 Stop: 10/03/18 15:30 Insulin Human Lispro (Humalog Insulin Sliding Scale) 0 units SUBQ [facility]; Protocol Stop: 10/03/18 16:29 Last Admin: 08/05/18 06:30 Dose: Not Given Lorazepam (Ativan) 0.5 mg PO Q6HR PRN; Protocol PRN Reason: anxiety/ agitation Stop: 10/03/18 15:13 Magnesium Hydroxide (Milk Of Magnesia) 30 ml PO HS PRN PRN Reason: Constipation Stop: 10/03/18 15:12 Memantine (Namenda) 10 mg PO BID [facility] Stop: 10/03/18 16:59 Last Admin: 08/05/18 08:25 Dose: 10 mg Metoprolol Succinate (Toprol Xl) 25 mg PO DAILY [facility] Stop: 10/04/18 08:59 Last Admin: 08/05/18 08:26 Dose: 25 mg Quetiapine Fumarate (Seroquel) 25 mg PO BID [facility]; Protocol Stop: 10/04/18 08:59 Last Admin: 08/05/18 08:27 Dose: 25 mg Quetiapine Fumarate (Seroquel) 25 mg PO HS [facility]; Protocol Stop: 10/03/18 20:59 Last Admin: 08/04/18 21:04 Dose: 25 mg Simvastatin (Zocor) 10 mg PO HS [facility]; Protocol Stop: 10/03/18 20:59 Last Admin: 08/04/18 21:04 Dose: 10 mg Zolpidem Tartrate (Ambien) 5 mg PO HS PRN PRN Reason: Insomnia Stop: 10/03/18 15:18 Physical Exam: 82 y/o male patient was admitted due to having aggressive inappropriate sexual behavior towards Nursing staff. He is agitated and aggressive. General: weak HEENT: NC/AT Neck: Supple, No JVD Lungs: CTAB, congested Cardiovascular: RRR, Normal S1 Abdomen: soft, non-tender Extremities: pain (Right knee pain.) Neurological: no change - Procedures Procedures: Procedures Procedure Code Date COLONOSCOPY AND BIOPSY 89678 12/02/14 EGD BIOPSY SINGLE/MULTIPLE 51351 12/02/14 EXCISION OF DUODENUM, ENDO, DIAGN [id number] 12/02/14 EXCISION OF ESOPHAGUS, ENDO, DIAGN [id number] 12/02/14 EXCISION OF RECTUM, ENDO, DIAGN [id number] 12/02/14 GROUP PSYCHOTHERAPY [id number] 06/18/16 Internal Medicine Assmt/Plan - Assessment Assessment: Acute psychosis. Htn. Diabetes. Schizophrenia. Dementia. Dyslipidemia. Chronic right knee pain. Anxiety. Insomnia. Chronic Renal Disease. - Plan Plan: Continuation of care. Monitor Vitals and Labs. Continue present meds as directed. Monitor Diet/Nutritional support. Psych management per Psych. Pain Management. Physical therapy. Occupational therapy. Safety precaution. Supportive care. Fall precaution, frequent nursing rounds, and as needed restraints to prevent fall. Continue collaborating with consulting specialists, case management and nursing team. Will Monitor patient and continue current treatment plan as ordered. Nutritional Asmnt/Malnutr-PDOC - Dietary Evaluation Malnutrition Findings (Please click <Entered> for more info): see orders.
--- NOTE | 2018-08-05 19:08 | Psychiatric Evaluation ---
DATE OF SERVICE: PSYCHIATRIC INITIAL EVALUATION AND MENTAL STATUS EXAM PATIENT'S AGE: 82. SEX: Male. PHYSICIAN: Dr. Carrasco. CHIEF COMPLAINT: Agitation and aggressive behavior. HISTORY OF PRESENT ILLNESS: The patient is an 82-year-old male, who lives in [facility]. The patient has been agitated and aggressive with the staff. The patient also has been easily irritable and has not been able to follow staff directions. The patient also has been feeling angry for no apparent reason. He has been hitting staff, and has been not able to follow directions, and has been easily irritable and uncooperative. PAST PSYCHIATRIC HISTORY: The patient has history of dementia and psychosis. PAST MEDICAL HISTORY: The patient has diabetes mellitus. SOCIAL HISTORY: The patient lives in [facility]. The patient is a , but he has 3 daughters and he is not in touch with them. The patient also does not drink alcohol or use any street drugs. ALLERGIES: No known allergies. MENTAL STATUS EXAMINATION: The patient appears slightly older than his stated age. Anxious. Cooperative. Irritable mood. Thought processes are circumstantial, but no flight of ideas. The patient denies any auditory or visual hallucinations, but suspicious and paranoid. The patient denies any thoughts of suicide or homicide. The patient is alert and oriented to the situation, place and person, but not to date. Impaired immediate and recent memory, but intact remote memory. The patient did remember that he lives in [place] and remembered his date and social security number. Poor insight and poor judgment. He seems to have low average intelligence based on his verbal ability. ASSESSMENT: PRIMARY DIAGNOSIS: Unspecified psychosis. SECONDARY DIAGNOSIS: Dementia, mild to moderate, with psychotic features. TREATMENT PLAN: We will monitor the patient's behavior and condition closely. We will increase Seroquel and we will adjust the dose. Also, we will work on behavioral modification. ESTIMATED LENGTH OF STAY: 5-7 days. THE PATIENT'S STRENGTHS AND WEAKNESSES: The patient's strength is not clear at this time except that he is in relatively fair health and is still able to understand. Weaknesses is his poor judgment and poor impulse control. AFTER DISCHARGE PLAN: Outpatient treatment and followup will continue as an outpatient. CRITERIA FOR DISCHARGE: The patient will not be psychotic or agitated and will stabilize psychotropic medications and will establish outpatient treatment plans. [facility]# [id number]
[2018-08-06] MEDS: INSULIN LISPRO SLIDING SCALE 100 UNITS/ML UNIT SUBQ SCH ×4 (06:36→20:58)
--- NOTE | 2018-08-06 07:16 | Progress Notes ---
DATE: SUBJECTIVE: Chart was reviewed and the patient interviewed. Also discussed the patient's condition with the staff and reviewed records and labs. The patient is still agitated and in irritable mood. The patient also is still exhibiting sexual inappropriate behavior. He also is still easily agitated and confused and unable to follow directions. Otherwise, the patient started on Seroquel and also continued to take Aricept and Namenda. ASSESSMENT: The patient is still agitated and can be dangerous to others. TREATMENT PLAN: Continue to monitor his behavior and will continue to follow up closely. JOB# [id number]
[2018-08-06] MEDS: Multivitamin w/ Minerals Tab PO SCH (09:44)
--- NOTE | 2018-08-07 00:01 | Progress Notes ---
DATE: 08/06/[address] Carrasco. SUBJECTIVE: Case was discussed with staff of the patient, reviewed records. This is an 82-year-old female, who was admitted because of agitation and aggressive behavior. The patient came from [facility]. The patient has been agitated, aggressive with the staff, irritable, unable to follow staff direction, angry for no reason with a history of dementia and psychosis. The patient continues to be inappropriate sexual behavior, easily agitated, confused, has been compliant with the medication with no side effects, no sedation, and no nausea and he is on Aricept, Namenda, and Seroquel 25 mg twice a day and 25 mg at bedtime and no side effects with the medication, no sedation, no nausea, and no extrapyramidal symptoms. We will continue to work with the patient in group therapy, milieu therapy, and adjust the medications as needed. JOB# [id number] A[facility]ON
--- NOTE | 2018-08-07 02:07 | Progress Notes ---
DATE: 08/06/2018 SUBJECTIVE: The patient was seen in his room. The patient is awake, appears to be confused due to medical condition. He still gets frustrated and agitated with occasional behavioral outbursts. Otherwise, the patient appears to be in no acute distress. OBJECTIVE: VITAL SIGNS: Temperature 98.7, heart rate 61, blood pressure 138/56, respirations 20, 95% on room air. HEENT: Head is atraumatic and normocephalic. Eyes: Bilateral conjunctivae are clear. Bilateral pupils are equally round and reactive. NECK: Supple. No JVD. CARDIOVASCULAR: S1 and S2 without murmur. PULMONARY: Clear to auscultation. GASTROINTESTINAL: Soft and nontender without guarding. Positive bowel sounds. MUSCULOSKELETAL: No clubbing. No cyanosis noted. ASSESSMENT: 1. Psychosis. 2. Dementia. 3. Hypertension. 4. Diabetes. 5. Hyperlipidemia. 6. Osteoarthritis. PLAN: We will keep the patient in inpatient psychiatric unit. We will followup with the psychiatrist to monitor the patient's condition and behavior. Treatment plans were discussed with the patient's nurse. Treatment plans were discussed with Dr. Avila. JOB# [id number]
[2018-08-07] MEDS: INSULIN LISPRO SLIDING SCALE 100 UNITS/ML UNIT SUBQ SCH ×4 (06:37→21:05)
[2018-08-07] MEDS: Multivitamin w/ Minerals Tab PO SCH (09:15)
--- NOTE | 2018-08-07 18:35 | Internal Medicine Prog Note ---
Internal Medicine Subjective - Subjective Service Date: 08/07/18 Patient seen and examined:: with staff Patient is:: awake, verbal, agitated, confused Patient Complaints of:: other (admitted due to having inappropriate sexual behavior towards staff.) Per staff patient has:: no adverse event, no episodes of fall Internal Medicine Objective - Results Result Diagrams: 08/04/18 11:10 08/04/18 11:10 Recent Labs: Laboratory Last Values WBC 9.5 Th/cmm (4.8-10.8) 08/04/18 11:10 Corrected WBC (auto) 9.5 Th/cmm 08/04/18 11:10 RBC 5.14 Mil/cmm (3.80-5.80) 08/04/18 11:10 Hgb 13.6 gm/dL (12-16) 08/04/18 11:10 Hct 41.8 % (41.0-60) 08/04/18 11:10 MCV 81.2 fl (80-99) 08/04/18 11:10 MCH 26.4 pg (27.0-31.0) L 08/04/18 11:10 MCHC Differential 32.5 pg (28.0-36.0) 08/04/18 11:10 RDW 14.1 % (11.5-20.0) 08/04/18 11:10 Plt Count 292 Th/cmm (150-400) 08/04/18 11:10 MPV 8.0 fl 08/04/18 11:10 Add Manual Diff Not Reportable 08/04/18 11:10 Neutrophils % 64.7 % (40.0-80.0) 08/04/18 11:10 Lymphocytes % 23.0 % (20.0-50.0) 08/04/18 11:10 Monocytes % 8.2 % (2.0-10.0) 08/04/18 11:10 Eosinophils % 3.3 % (0.0-5.0) 08/04/18 11:10 Basophils % 0.8 % (0.0-2.0) 08/04/18 11:10 Sodium 136 mEq/L (136-145) 08/04/18 11:10 Potassium 4.7 mEq/L (3.5-5.1) 08/04/18 11:10 Chloride 104 mEq/L (98-107) 08/04/18 11:10 Carbon Dioxide 25.4 mEq/L (21.0-31.0) 08/04/18 11:10 Anion Gap 11.3 (7.0-16.0) 08/04/18 11:10 BUN 28 mg/dL (7-25) H 08/04/18 11:10 Creatinine 1.5 mg/dL (0.7-1.3) H 08/04/18 11:10 Est GFR ( Amer) TNP 08/04/18 11:10 Est GFR (Non-Af Amer) TNP 08/04/18 11:10 BUN/Creatinine Ratio 18.7 08/04/18 11:10 Glucose 101 mg/dL (70-105) 08/04/18 11:10 POC Glucose 74 MG/DL (70 - 105) 08/06/18 16:51 Calcium 9.6 mg/dL (8.6-10.3) 08/04/18 11:10 Total Bilirubin 0.3 mg/dL (0.3-1.0) 08/04/18 11:10 AST 14 U/L (13-39) 08/04/18 11:10 ALT 16 U/L (7-52) 08/04/18 11:10 Alkaline Phosphatase 104 U/L (34-104) 08/04/18 11:10 Total Protein 7.5 gm/dL (6.0-8.3) 08/04/18 11:10 Albumin 3.9 gm/dL (4.2-5.5) L 08/04/18 11:10 Globulin 3.6 gm/dL 08/04/18 11:10 Albumin/Globulin Ratio 1.1 (1.0-1.8) 08/04/18 11:10 Triglycerides 314 mg/dL (<150) H 08/04/18 11:10 Cholesterol 153 mg/dL (<200) 08/04/18 11:10 LDL Cholesterol Direct 82 mg/dL (75-193) 08/04/18 11:10 HDL Cholesterol 30 mg/dL (23-92) 08/04/18 11:10 TSH 3.03 uIU/ml (0.34-5.60) 08/04/18 11:10 Urine Source CLEAN C 08/04/18 11:10 Urine Color YELLOW 08/04/18 11:10 Urine Clarity CLEAR (CLEAR) 08/04/18 11:10 Urine pH 6.0 (4.6 - 8.0) 08/04/18 11:10 Ur Specific [place] 1.010 (1.005-1.030) 08/04/18 11:10 Urine Protein TRACE mg/dL (NEGATIVE) 08/04/18 11:10 Urine Glucose (UA) NEGATIVE mg/dL (NEGATIVE) 08/04/18 11:10 Urine Ketones NEGATIVE mg/dL (NEGATIVE) 08/04/18 11:10 Urine Blood NEGATIVE (NEGATIVE) 08/04/18 11:10 Urine Nitrate NEGATIVE (NEGATIVE) 08/04/18 11:10 Urine Bilirubin NEGATIVE (NEGATIVE) 08/04/18 11:10 Urine Urobilinogen 0.2 E.U./dL (0.2 - 1.0) 08/04/18 11:10 Ur Leukocyte Esterase NEGATIVE (NEGATIVE) 08/04/18 11:10 Urine RBC 0-2 /hpf (0-5) H 08/04/18 11:10 Urine WBC 0-2 /hpf (0-5) 08/04/18 11:10 Ur Epithelial Cells OCCASIONAL /lpf (FEW) 08/04/18 11:10 Urine Bacteria NONE SEEN /hpf (NONE SEEN) 08/04/18 11:10 Salicylates < 25.0 mg/L (30.0-100.0) L 08/04/18 11:10 Urine Opiates Screen NEGATIVE (NEGATIVE) 08/04/18 11:10 Urine Methadone Screen NEGATIVE (NEGATIVE) 08/04/18 11:10 Acetaminophen < 10.0 ug/mL (10.0-30.0) L 08/04/18 11:10 Ur Barbiturates Screen NEGATIVE (NEGATIVE) 08/04/18 11:10 Ur Tricyclics Screen POSITIVE (NEGATIVE) H 08/04/18 11:10 Ur Phencyclidine Scrn NEGATIVE (NEGATIVE) 08/04/18 11:10 Amphetamines Screen NEGATIVE (NEGATIVE) 08/04/18 11:10 U Methamphetamines Scrn NEGATIVE (NEGATIVE) 08/04/18 11:10 U Benzodiazepines Scrn NEGATIVE (NEGATIVE) 08/04/18 11:10 U Cocaine Metab Screen NEGATIVE (NEGATIVE) 08/04/18 11:10 U Cannabinoids Screen NEGATIVE (NEGATIVE) 08/04/18 11:10 Ethyl Alcohol < 10 mg/dL (0-10) 08/04/18 11:10 RPR NONREACTIVE (NONREACTIVE) 08/04/18 11:10 - Physical Exam Vitals and I&O: Vital Signs Temp 98.9 F 08/07/18 15:19 Pulse 76 08/07/18 15:19 Resp 19 08/07/18 15:19 BP 160/71 08/07/18 15:19 Pulse Ox 96 08/07/18 15:19 Intake & Output 08/06/18 08/07/18 08/07/18 18:59 06:59 18:59 Intake Total 1000 Balance 1000 Intake: Oral 1000 Other: # Voids 4 # Bowel Movements 1 Active Medications: Current Medications Acetaminophen (Tylenol) 650 mg PO Q6H PRN PRN Reason: Pain (Mild) Stop: 10/03/18 15:17 Acetaminophen (Tylenol) 650 mg PO Q4H PRN PRN Reason: mild pain/[id number]> Stop: 10/03/18 18:07 Al Hydrox/Mg Hydrox/Simethicone (Maalox) 30 ml PO Q4HR PRN PRN Reason: GI DISTRESS Stop: 10/03/18 15:16 Amlodipine Besylate (Norvasc) 5 mg PO DAILY [facility] Stop: 10/04/18 08:59 Last Admin: 08/07/18 09:15 Dose: 5 mg Ascorbic Acid (Vitamin C) 500 mg PO DAILY [facility] Stop: 10/04/18 08:59 Last Admin: 08/07/18 09:14 Dose: 500 mg Aspirin (Ecotrin) 81 mg PO DAILY [facility] Stop: 10/04/18 08:59 Last Admin: 08/07/18 09:16 Dose: 81 mg Cholecalciferol (Vitamin D3) 5,000 iu PO DAILY [facility] Stop: 10/04/18 08:59 Last Admin: 08/07/18 09:14 Dose: 5,000 iu Dextrose (D50w) 50 ml IVP PRN PRN PRN Reason: Blood Glucose less than 70 Stop: 10/03/18 15:30 Dextrose (Glutose 40%) 18.75 gm PO PRN PRN PRN Reason: Blood Glucose less than 70 Stop: 10/03/18 15:30 Docusate Sodium (Colace) 100 mg PO DAILY [facility] Stop: 10/04/18 08:59 Last Admin: 08/07/18 09:16 Dose: 100 mg Donepezil HCl (Aricept) 10 mg PO HS [facility] Stop: 10/03/18 20:59 Last Admin: 08/06/18 20:58 Dose: 10 mg Famotidine (Pepcid) 20 mg PO BID [facility] Stop: 10/03/18 16:59 Last Admin: 08/07/18 17:33 Dose: 20 mg Glucagon (Glucagen) 1 mg IM PRN PRN PRN Reason: Blood Glucose less than 70 Stop: 10/03/18 15:30 Insulin Human Lispro (Humalog Insulin Sliding Scale) 0 units SUBQ ACHS [facility]; Protocol Stop: 10/03/18 16:29 Last Admin: 08/07/18 16:33 Dose: Not Given Lorazepam (Ativan) 0.5 mg PO Q6HR PRN; Protocol PRN Reason: anxiety/ agitation Stop: 10/03/18 15:13 Last Admin: 08/06/18 23:08 Dose: 0.5 mg Magnesium Hydroxide (Milk Of Magnesia) 30 ml PO HS PRN PRN Reason: Constipation Stop: 10/03/18 15:12 Memantine (Namenda) 10 mg PO BID [facility] Stop: 10/03/18 16:59 Last Admin: 08/07/18 17:33 Dose: 10 mg Metoprolol Succinate (Toprol Xl) 25 mg PO DAILY [facility] Stop: 10/04/18 08:59 Last Admin: 08/07/18 09:15 Dose: 25 mg Quetiapine Fumarate (Seroquel) 25 mg PO BID [facility]; Protocol Stop: 10/04/18 08:59 Last Admin: 08/07/18 17:33 Dose: 25 mg Quetiapine Fumarate (Seroquel) 25 mg PO HS [facility]; Protocol Stop: 10/03/18 20:59 Last Admin: 08/06/18 20:58 Dose: 25 mg Simvastatin (Zocor) 10 mg PO HS [facility]; Protocol Stop: 10/03/18 20:59 Last Admin: 08/06/18 20:59 Dose: 10 mg Zolpidem Tartrate (Ambien) 5 mg PO HS PRN PRN Reason: Insomnia Stop: 10/03/18 15:18 Last Admin: 08/06/18 21:00 Dose: 5 mg Physical Exam: 82 y/o male patient was admitted due to having aggressive inappropriate sexual behavior towards Nursing staff. He is confused and dis-oriented. We will continue to monitor and treat patient. General: weak HEENT: NC/AT Neck: Supple, No JVD Lungs: CTAB, congested Cardiovascular: RRR, Normal S1 Abdomen: soft, non-tender Extremities: pain (Right knee pain.) Neurological: no change - Procedures Procedures: Procedures Procedure Code Date COLONOSCOPY AND BIOPSY 31068 12/02/14 EGD BIOPSY SINGLE/MULTIPLE 43637 12/02/14 EXCISION OF DUODENUM, ENDO, DIAGN [id number] 12/02/14 EXCISION OF ESOPHAGUS, ENDO, DIAGN [id number] 12/02/14 EXCISION OF RECTUM, ENDO, DIAGN [id number] 12/02/14 GROUP PSYCHOTHERAPY [id number] 06/18/16 Internal Medicine Assmt/Plan - Assessment Assessment: Acute psychosis. Htn. Diabetes. Schizophrenia. Dementia. Dyslipidemia. Chronic right knee pain. Anxiety. Insomnia. OA. Chronic Renal Disease. - Plan Plan: Continuation of care. Monitor Vitals and Labs. Continue present meds as directed. Monitor Diet/Nutritional support. Psych management per Psych. Pain Management. Physical therapy. Occupational therapy. Safety precaution. Supportive care. Fall precaution, frequent nursing rounds, and as needed restraints to prevent fall. Continue collaborating with consulting specialists, case management and nursing team. Will Monitor patient and continue present care management. Nutritional Asmnt/Malnutr-PDOC - Dietary Evaluation Malnutrition Findings (Please click <Entered> for more info): see orders.
--- NOTE | 2018-08-08 03:26 | Progress Notes ---
DATE: 08/07/2018 FOLLOWUP PROGRESS NOTE Case was discussed with staff of the patient, reviewed records. The patient continues to be confused, unpredictable, impulsive, unable to make safe plan for self-care, easily agitated, continues to have poor insight. Continues to have episodes of agitation and irritability. He has been compliant with the medication with no side effects, no sedation, no nausea, no extrapyramidal symptoms. He is on Seroquel 25 mg twice a day, Namenda 10 mg twice a day and Aricept 10 mg at bedtime. We will continue to work with the patient in group therapy, milieu therapy and adjust the medication as needed. JOB# [id number]
[2018-08-08] MEDS: INSULIN LISPRO SLIDING SCALE 100 UNITS/ML UNIT SUBQ SCH ×4 (06:30→20:56)
[2018-08-08] MEDS: Multivitamin w/ Minerals Tab PO SCH (08:39)
--- NOTE | 2018-08-08 10:48 | Internal Medicine Prog Note ---
Internal Medicine Subjective - Subjective Service Date: 08/08/18 Patient is:: awake, verbal, agitated, confused Patient Complaints of:: other (admitted due to having inappropriate sexual behavior towards staff.) Per staff patient has:: no adverse event, no episodes of fall Internal Medicine Objective - Results Result Diagrams: 08/04/18 11:10 08/04/18 11:10 Recent Labs: Laboratory Last Values WBC 9.5 Th/cmm (4.8-10.8) 08/04/18 11:10 Corrected WBC (auto) 9.5 Th/cmm 08/04/18 11:10 RBC 5.14 Mil/cmm (3.80-5.80) 08/04/18 11:10 Hgb 13.6 gm/dL (12-16) 08/04/18 11:10 Hct 41.8 % (41.0-60) 08/04/18 11:10 MCV 81.2 fl (80-99) 08/04/18 11:10 MCH 26.4 pg (27.0-31.0) L 08/04/18 11:10 MCHC Differential 32.5 pg (28.0-36.0) 08/04/18 11:10 RDW 14.1 % (11.5-20.0) 08/04/18 11:10 Plt Count 292 Th/cmm (150-400) 08/04/18 11:10 MPV 8.0 fl 08/04/18 11:10 Add Manual Diff Not Reportable 08/04/18 11:10 Neutrophils % 64.7 % (40.0-80.0) 08/04/18 11:10 Lymphocytes % 23.0 % (20.0-50.0) 08/04/18 11:10 Monocytes % 8.2 % (2.0-10.0) 08/04/18 11:10 Eosinophils % 3.3 % (0.0-5.0) 08/04/18 11:10 Basophils % 0.8 % (0.0-2.0) 08/04/18 11:10 Sodium 136 mEq/L (136-145) 08/04/18 11:10 Potassium 4.7 mEq/L (3.5-5.1) 08/04/18 11:10 Chloride 104 mEq/L (98-107) 08/04/18 11:10 Carbon Dioxide 25.4 mEq/L (21.0-31.0) 08/04/18 11:10 Anion Gap 11.3 (7.0-16.0) 08/04/18 11:10 BUN 28 mg/dL (7-25) H 08/04/18 11:10 Creatinine 1.5 mg/dL (0.7-1.3) H 08/04/18 11:10 Est GFR ( Amer) TNP 08/04/18 11:10 Est GFR (Non-Af Amer) TNP 08/04/18 11:10 BUN/Creatinine Ratio 18.7 08/04/18 11:10 Glucose 101 mg/dL (70-105) 08/04/18 11:10 POC Glucose 74 MG/DL (70 - 105) 08/06/18 16:51 Calcium 9.6 mg/dL (8.6-10.3) 08/04/18 11:10 Total Bilirubin 0.3 mg/dL (0.3-1.0) 08/04/18 11:10 AST 14 U/L (13-39) 08/04/18 11:10 ALT 16 U/L (7-52) 08/04/18 11:10 Alkaline Phosphatase 104 U/L (34-104) 08/04/18 11:10 Total Protein 7.5 gm/dL (6.0-8.3) 08/04/18 11:10 Albumin 3.9 gm/dL (4.2-5.5) L 08/04/18 11:10 Globulin 3.6 gm/dL 08/04/18 11:10 Albumin/Globulin Ratio 1.1 (1.0-1.8) 08/04/18 11:10 Triglycerides 314 mg/dL (<150) H 08/04/18 11:10 Cholesterol 153 mg/dL (<200) 08/04/18 11:10 LDL Cholesterol Direct 82 mg/dL (75-193) 08/04/18 11:10 HDL Cholesterol 30 mg/dL (23-92) 08/04/18 11:10 TSH 3.03 uIU/ml (0.34-5.60) 08/04/18 11:10 Urine Source CLEAN C 08/04/18 11:10 Urine Color YELLOW 08/04/18 11:10 Urine Clarity CLEAR (CLEAR) 08/04/18 11:10 Urine pH 6.0 (4.6 - 8.0) 08/04/18 11:10 Ur Specific [place] 1.010 (1.005-1.030) 08/04/18 11:10 Urine Protein TRACE mg/dL (NEGATIVE) 08/04/18 11:10 Urine Glucose (UA) NEGATIVE mg/dL (NEGATIVE) 08/04/18 11:10 Urine Ketones NEGATIVE mg/dL (NEGATIVE) 08/04/18 11:10 Urine Blood NEGATIVE (NEGATIVE) 08/04/18 11:10 Urine Nitrate NEGATIVE (NEGATIVE) 08/04/18 11:10 Urine Bilirubin NEGATIVE (NEGATIVE) 08/04/18 11:10 Urine Urobilinogen 0.2 E.U./dL (0.2 - 1.0) 08/04/18 11:10 Ur Leukocyte Esterase NEGATIVE (NEGATIVE) 08/04/18 11:10 Urine RBC 0-2 /hpf (0-5) H 08/04/18 11:10 Urine WBC 0-2 /hpf (0-5) 08/04/18 11:10 Ur Epithelial Cells OCCASIONAL /lpf (FEW) 08/04/18 11:10 Urine Bacteria NONE SEEN /hpf (NONE SEEN) 08/04/18 11:10 Salicylates < 25.0 mg/L (30.0-100.0) L 08/04/18 11:10 Urine Opiates Screen NEGATIVE (NEGATIVE) 08/04/18 11:10 Urine Methadone Screen NEGATIVE (NEGATIVE) 08/04/18 11:10 Acetaminophen < 10.0 ug/mL (10.0-30.0) L 08/04/18 11:10 Ur Barbiturates Screen NEGATIVE (NEGATIVE) 08/04/18 11:10 Ur Tricyclics Screen POSITIVE (NEGATIVE) H 08/04/18 11:10 Ur Phencyclidine Scrn NEGATIVE (NEGATIVE) 08/04/18 11:10 Amphetamines Screen NEGATIVE (NEGATIVE) 08/04/18 11:10 U Methamphetamines Scrn NEGATIVE (NEGATIVE) 08/04/18 11:10 U Benzodiazepines Scrn NEGATIVE (NEGATIVE) 08/04/18 11:10 U Cocaine Metab Screen NEGATIVE (NEGATIVE) 08/04/18 11:10 U Cannabinoids Screen NEGATIVE (NEGATIVE) 08/04/18 11:10 Ethyl Alcohol < 10 mg/dL (0-10) 08/04/18 11:10 RPR NONREACTIVE (NONREACTIVE) 08/04/18 11:10 - Physical Exam Vitals and I&O: Vital Signs Temp 98.1 F 08/08/18 05:41 Pulse 64 08/08/18 08:39 Resp 19 08/08/18 05:41 BP 159/67 08/08/18 08:39 Pulse Ox 95 08/08/18 05:41 Intake & Output 08/07/18 08/08/18 08/08/18 18:59 06:59 18:59 Intake Total 280 Balance 280 Intake: Oral 280 Other: # Voids 1 # Bowel Movements 1 Active Medications: Current Medications Acetaminophen (Tylenol) 650 mg PO Q6H PRN PRN Reason: Pain (Mild) Stop: 10/03/18 15:17 Acetaminophen (Tylenol) 650 mg PO Q4H PRN PRN Reason: mild pain/[id number]> Stop: 10/03/18 18:07 Al Hydrox/Mg Hydrox/Simethicone (Maalox) 30 ml PO Q4HR PRN PRN Reason: GI DISTRESS Stop: 10/03/18 15:16 Amlodipine Besylate (Norvasc) 5 mg PO DAILY [facility] Stop: 10/04/18 08:59 Last Admin: 08/08/18 08:37 Dose: 5 mg Ascorbic Acid (Vitamin C) 500 mg PO DAILY [facility] Stop: 10/04/18 08:59 Last Admin: 08/08/18 08:38 Dose: 500 mg Aspirin (Ecotrin) 81 mg PO DAILY [facility] Stop: 10/04/18 08:59 Last Admin: 08/08/18 08:38 Dose: 81 mg Cholecalciferol (Vitamin D3) 5,000 iu PO DAILY [facility] Stop: 10/04/18 08:59 Last Admin: 08/08/18 08:38 Dose: Not Given Dextrose (D50w) 50 ml IVP PRN PRN PRN Reason: Blood Glucose less than 70 Stop: 10/03/18 15:30 Dextrose (Glutose 40%) 18.75 gm PO PRN PRN PRN Reason: Blood Glucose less than 70 Stop: 10/03/18 15:30 Docusate Sodium (Colace) 100 mg PO DAILY [facility] Stop: 10/04/18 08:59 Last Admin: 08/08/18 08:38 Dose: 100 mg Donepezil HCl (Aricept) 10 mg PO HS [facility] Stop: 10/03/18 20:59 Last Admin: 08/07/18 21:04 Dose: 10 mg Famotidine (Pepcid) 20 mg PO BID [facility] Stop: 10/03/18 16:59 Last Admin: 08/08/18 08:38 Dose: 20 mg Glucagon (Glucagen) 1 mg IM PRN PRN PRN Reason: Blood Glucose less than 70 Stop: 10/03/18 15:30 Insulin Human Lispro (Humalog Insulin Sliding Scale) 0 units SUBQ ACHS [facility]; Protocol Stop: 10/03/18 16:29 Last Admin: 08/08/18 06:30 Dose: Not Given Lorazepam (Ativan) 0.5 mg PO Q6HR PRN; Protocol PRN Reason: anxiety/ agitation Stop: 10/03/18 15:13 Last Admin: 08/08/18 00:56 Dose: 0.5 mg Magnesium Hydroxide (Milk Of Magnesia) 30 ml PO HS PRN PRN Reason: Constipation Stop: 10/03/18 15:12 Memantine (Namenda) 10 mg PO BID [facility] Stop: 10/03/18 16:59 Last Admin: 08/08/18 08:38 Dose: 10 mg Metoprolol Succinate (Toprol Xl) 25 mg PO DAILY [facility] Stop: 10/04/18 08:59 Last Admin: 08/08/18 08:39 Dose: 25 mg Quetiapine Fumarate (Seroquel) 25 mg PO BID [facility]; Protocol Stop: 10/04/18 08:59 Last Admin: 08/08/18 08:39 Dose: 25 mg Quetiapine Fumarate (Seroquel) 25 mg PO HS [facility]; Protocol Stop: 10/03/18 20:59 Last Admin: 08/07/18 21:05 Dose: 25 mg Simvastatin (Zocor) 10 mg PO HS [facility]; Protocol Stop: 10/03/18 20:59 Last Admin: 08/07/18 21:05 Dose: 10 mg Zolpidem Tartrate (Ambien) 5 mg PO HS PRN PRN Reason: Insomnia Stop: 10/03/18 15:18 Last Admin: 08/07/18 21:06 Dose: 5 mg Physical Exam: 82 y/o male patient was admitted due to having aggressive inappropriate sexual behavior towards Nursing staff. He is in agitated mood and confused. We will continue to monitor and treat patient. General: weak HEENT: NC/AT Neck: Supple, No JVD Lungs: CTAB, congested Cardiovascular: RRR, Normal S1 Abdomen: soft, non-tender Extremities: pain (Right knee pain.) Neurological: no change - Procedures Procedures: Procedures Procedure Code Date COLONOSCOPY AND BIOPSY 65113 12/02/14 EGD BIOPSY SINGLE/MULTIPLE 52314 12/02/14 EXCISION OF DUODENUM, ENDO, DIAGN [id number] 12/02/14 EXCISION OF ESOPHAGUS, ENDO, DIAGN [id number] 12/02/14 EXCISION OF RECTUM, ENDO, DIAGN [id number] 12/02/14 GROUP PSYCHOTHERAPY [id number] 06/18/16 Internal Medicine Assmt/Plan - Assessment Assessment: Acute psychosis. Htn. Diabetes. Schizophrenia. Dementia. Dyslipidemia. Chronic right knee pain. Anxiety. Insomnia. OA. Chronic Renal Disease. - Plan Plan: Continuation of care. Monitor Vitals and Labs. Continue present meds as directed. Monitor Diet/Nutritional support. Psych management per Psych. Pain Management. Physical therapy. Occupational therapy. Safety precaution. Supportive care. Fall precaution, frequent nursing rounds, and as needed restraints to prevent fall. Continue collaborating with consulting specialists, case management and nursing team. Will Monitor patient and continue present care management. Nutritional Asmnt/Malnutr-PDOC - Dietary Evaluation Malnutrition Findings (Please click <Entered> for more info): see orders.
--- NOTE | 2018-08-09 06:06 | Progress Notes ---
DATE: SUBJECTIVE: Chart reviewed and the patient interviewed. Also discussed the patient's condition with the staff and reviewed records and labs. The patient is still forgetful and confused. The patient also is in a depressed mood. The patient also is easily agitated and irritable, not at the same time, he is easier to follow directions and he has been compliant with taking his medications with no side effects of medications. ASSESSMENT: The patient is still agitated. TREATMENT PLAN: Continue monitoring his behavior and his condition closely. Also, continue working on his irritability and his confusion and followup. JOB# [id number]
[2018-08-09] MEDS: INSULIN LISPRO SLIDING SCALE 100 UNITS/ML UNIT SUBQ SCH ×4 (06:39→21:27)
[2018-08-09] MEDS: Multivitamin w/ Minerals Tab PO SCH (08:51)
--- NOTE | 2018-08-09 19:06 | Progress Notes ---
DATE: SUBJECTIVE: Chart reviewed and the patient interviewed. Also discussed the patient's condition with the staff and reviewed records and labs. The patient is still confused and impulsive. The patient also still has episodes of agitation, but seems to be less than before. The patient also still needs lots of redirections. Also, the patient is forgetful. Otherwise, the patient continued to comply with taking his medications with no side effects of medications. ASSESSMENT: The patient is still agitated and confused. TREATMENT PLAN: Continue to monitor his behavior and his condition closely. Also, we will continue Seroquel 25 mg twice a day and 25 mg at bedtime as well as Aricept and Namenda. JOB# [id number]
[2018-08-10] MEDS: INSULIN LISPRO SLIDING SCALE 100 UNITS/ML UNIT SUBQ SCH ×4 (06:29→20:56)
[2018-08-10] MEDS: Multivitamin w/ Minerals Tab PO SCH (08:37)
--- NOTE | 2018-08-10 10:56 | Internal Medicine Prog Note ---
Internal Medicine Subjective - Subjective Service Date: 08/10/18 Patient is:: awake, verbal, agitated, confused Patient Complaints of:: other (admitted due to having inappropriate sexual behavior towards staff.) Per staff patient has:: no adverse event, no episodes of fall Internal Medicine Objective - Results Result Diagrams: 08/04/18 11:10 08/04/18 11:10 Recent Labs: Laboratory Last Values WBC 9.5 Th/cmm (4.8-10.8) 08/04/18 11:10 Corrected WBC (auto) 9.5 Th/cmm 08/04/18 11:10 RBC 5.14 Mil/cmm (3.80-5.80) 08/04/18 11:10 Hgb 13.6 gm/dL (12-16) 08/04/18 11:10 Hct 41.8 % (41.0-60) 08/04/18 11:10 MCV 81.2 fl (80-99) 08/04/18 11:10 MCH 26.4 pg (27.0-31.0) L 08/04/18 11:10 MCHC Differential 32.5 pg (28.0-36.0) 08/04/18 11:10 RDW 14.1 % (11.5-20.0) 08/04/18 11:10 Plt Count 292 Th/cmm (150-400) 08/04/18 11:10 MPV 8.0 fl 08/04/18 11:10 Add Manual Diff Not Reportable 08/04/18 11:10 Neutrophils % 64.7 % (40.0-80.0) 08/04/18 11:10 Lymphocytes % 23.0 % (20.0-50.0) 08/04/18 11:10 Monocytes % 8.2 % (2.0-10.0) 08/04/18 11:10 Eosinophils % 3.3 % (0.0-5.0) 08/04/18 11:10 Basophils % 0.8 % (0.0-2.0) 08/04/18 11:10 Sodium 136 mEq/L (136-145) 08/04/18 11:10 Potassium 4.7 mEq/L (3.5-5.1) 08/04/18 11:10 Chloride 104 mEq/L (98-107) 08/04/18 11:10 Carbon Dioxide 25.4 mEq/L (21.0-31.0) 08/04/18 11:10 Anion Gap 11.3 (7.0-16.0) 08/04/18 11:10 BUN 28 mg/dL (7-25) H 08/04/18 11:10 Creatinine 1.5 mg/dL (0.7-1.3) H 08/04/18 11:10 Est GFR ( Amer) TNP 08/04/18 11:10 Est GFR (Non-Af Amer) TNP 08/04/18 11:10 BUN/Creatinine Ratio 18.7 08/04/18 11:10 Glucose 101 mg/dL (70-105) 08/04/18 11:10 POC Glucose 74 MG/DL (70 - 105) 08/06/18 16:51 Calcium 9.6 mg/dL (8.6-10.3) 08/04/18 11:10 Total Bilirubin 0.3 mg/dL (0.3-1.0) 08/04/18 11:10 AST 14 U/L (13-39) 08/04/18 11:10 ALT 16 U/L (7-52) 08/04/18 11:10 Alkaline Phosphatase 104 U/L (34-104) 08/04/18 11:10 Total Protein 7.5 gm/dL (6.0-8.3) 08/04/18 11:10 Albumin 3.9 gm/dL (4.2-5.5) L 08/04/18 11:10 Globulin 3.6 gm/dL 08/04/18 11:10 Albumin/Globulin Ratio 1.1 (1.0-1.8) 08/04/18 11:10 Triglycerides 314 mg/dL (<150) H 08/04/18 11:10 Cholesterol 153 mg/dL (<200) 08/04/18 11:10 LDL Cholesterol Direct 82 mg/dL (75-193) 08/04/18 11:10 HDL Cholesterol 30 mg/dL (23-92) 08/04/18 11:10 TSH 3.03 uIU/ml (0.34-5.60) 08/04/18 11:10 Urine Source CLEAN C 08/04/18 11:10 Urine Color YELLOW 08/04/18 11:10 Urine Clarity CLEAR (CLEAR) 08/04/18 11:10 Urine pH 6.0 (4.6 - 8.0) 08/04/18 11:10 Ur Specific [place] 1.010 (1.005-1.030) 08/04/18 11:10 Urine Protein TRACE mg/dL (NEGATIVE) 08/04/18 11:10 Urine Glucose (UA) NEGATIVE mg/dL (NEGATIVE) 08/04/18 11:10 Urine Ketones NEGATIVE mg/dL (NEGATIVE) 08/04/18 11:10 Urine Blood NEGATIVE (NEGATIVE) 08/04/18 11:10 Urine Nitrate NEGATIVE (NEGATIVE) 08/04/18 11:10 Urine Bilirubin NEGATIVE (NEGATIVE) 08/04/18 11:10 Urine Urobilinogen 0.2 E.U./dL (0.2 - 1.0) 08/04/18 11:10 Ur Leukocyte Esterase NEGATIVE (NEGATIVE) 08/04/18 11:10 Urine RBC 0-2 /hpf (0-5) H 08/04/18 11:10 Urine WBC 0-2 /hpf (0-5) 08/04/18 11:10 Ur Epithelial Cells OCCASIONAL /lpf (FEW) 08/04/18 11:10 Urine Bacteria NONE SEEN /hpf (NONE SEEN) 08/04/18 11:10 Salicylates < 25.0 mg/L (30.0-100.0) L 08/04/18 11:10 Urine Opiates Screen NEGATIVE (NEGATIVE) 08/04/18 11:10 Urine Methadone Screen NEGATIVE (NEGATIVE) 08/04/18 11:10 Acetaminophen < 10.0 ug/mL (10.0-30.0) L 08/04/18 11:10 Ur Barbiturates Screen NEGATIVE (NEGATIVE) 08/04/18 11:10 Ur Tricyclics Screen POSITIVE (NEGATIVE) H 08/04/18 11:10 Ur Phencyclidine Scrn NEGATIVE (NEGATIVE) 08/04/18 11:10 Amphetamines Screen NEGATIVE (NEGATIVE) 08/04/18 11:10 U Methamphetamines Scrn NEGATIVE (NEGATIVE) 08/04/18 11:10 U Benzodiazepines Scrn NEGATIVE (NEGATIVE) 08/04/18 11:10 U Cocaine Metab Screen NEGATIVE (NEGATIVE) 08/04/18 11:10 U Cannabinoids Screen NEGATIVE (NEGATIVE) 08/04/18 11:10 Ethyl Alcohol < 10 mg/dL (0-10) 08/04/18 11:10 RPR NONREACTIVE (NONREACTIVE) 08/04/18 11:10 - Physical Exam Vitals and I&O: Vital Signs Temp 98.6 F 08/10/18 06:35 Pulse 81 08/10/18 08:39 Resp 19 08/10/18 06:35 BP 156/81 08/10/18 08:39 Pulse Ox 96 08/10/18 06:35 Intake & Output 08/09/18 08/10/18 08/10/18 18:59 06:59 18:59 Intake Total 1000 160 Balance 1000 160 Intake: Oral 1000 160 Other: # Voids 4 2 # Bowel Movements 2 0 Active Medications: Current Medications Acetaminophen (Tylenol) 650 mg PO Q6H PRN PRN Reason: Pain (Mild) Stop: 10/03/18 15:17 Acetaminophen (Tylenol) 650 mg PO Q4H PRN PRN Reason: mild pain/[id number]> Stop: 10/03/18 18:07 Al Hydrox/Mg Hydrox/Simethicone (Maalox) 30 ml PO Q4HR PRN PRN Reason: GI DISTRESS Stop: 10/03/18 15:16 Amlodipine Besylate (Norvasc) 5 mg PO DAILY [facility] Stop: 10/04/18 08:59 Last Admin: 08/10/18 08:39 Dose: 5 mg Ascorbic Acid (Vitamin C) 500 mg PO DAILY [facility] Stop: 10/04/18 08:59 Last Admin: 08/10/18 08:37 Dose: 500 mg Aspirin (Ecotrin) 81 mg PO DAILY [facility] Stop: 10/04/18 08:59 Last Admin: 08/10/18 08:39 Dose: 81 mg Cholecalciferol (Vitamin D3) 5,000 iu PO DAILY [facility] Stop: 10/04/18 08:59 Last Admin: 08/10/18 08:36 Dose: 5,000 iu Dextrose (D50w) 50 ml IVP PRN PRN PRN Reason: Blood Glucose less than 70 Stop: 10/03/18 15:30 Dextrose (Glutose 40%) 18.75 gm PO PRN PRN PRN Reason: Blood Glucose less than 70 Stop: 10/03/18 15:30 Docusate Sodium (Colace) 100 mg PO DAILY [facility] Stop: 10/04/18 08:59 Last Admin: 08/10/18 08:40 Dose: 100 mg Donepezil HCl (Aricept) 10 mg PO HS [facility] Stop: 10/03/18 20:59 Last Admin: 08/09/18 21:27 Dose: 10 mg Famotidine (Pepcid) 20 mg PO BID [facility] Stop: 10/03/18 16:59 Last Admin: 08/10/18 08:40 Dose: 20 mg Glucagon (Glucagen) 1 mg IM PRN PRN PRN Reason: Blood Glucose less than 70 Stop: 10/03/18 15:30 Insulin Human Lispro (Humalog Insulin Sliding Scale) 0 units SUBQ ACHS [facility]; Protocol Stop: 10/03/18 16:29 Last Admin: 08/10/18 06:29 Dose: Not Given Lorazepam (Ativan) 0.5 mg PO Q6HR PRN; Protocol PRN Reason: anxiety/ agitation Stop: 10/03/18 15:13 Last Admin: 08/08/18 23:48 Dose: 0.5 mg Magnesium Hydroxide (Milk Of Magnesia) 30 ml PO HS PRN PRN Reason: Constipation Stop: 10/03/18 15:12 Memantine (Namenda) 10 mg PO BID [facility] Stop: 10/03/18 16:59 Last Admin: 08/10/18 08:37 Dose: 10 mg Metoprolol Succinate (Toprol Xl) 25 mg PO DAILY [facility] Stop: 10/04/18 08:59 Last Admin: 08/10/18 08:37 Dose: 25 mg Quetiapine Fumarate (Seroquel) 25 mg PO BID [facility]; Protocol Stop: 10/04/18 08:59 Last Admin: 08/10/18 08:39 Dose: 25 mg Quetiapine Fumarate (Seroquel) 25 mg PO HS [facility]; Protocol Stop: 10/03/18 20:59 Last Admin: 08/09/18 21:27 Dose: 25 mg Simvastatin (Zocor) 10 mg PO HS [facility]; Protocol Stop: 10/03/18 20:59 Last Admin: 08/09/18 21:27 Dose: 10 mg Zolpidem Tartrate (Ambien) 5 mg PO HS PRN PRN Reason: Insomnia Stop: 10/03/18 15:18 Last Admin: 08/09/18 21:27 Dose: 5 mg General: weak HEENT: NC/AT Neck: Supple, No JVD Lungs: CTAB, congested Cardiovascular: RRR, Normal S1 Abdomen: soft, non-tender Extremities: pain (Right knee pain.) Neurological: no change - Procedures Procedures: Procedures Procedure Code Date COLONOSCOPY AND BIOPSY 79866 12/02/14 EGD BIOPSY SINGLE/MULTIPLE 76529 12/02/14 EXCISION OF DUODENUM, ENDO, DIAGN [id number] 12/02/14 EXCISION OF ESOPHAGUS, ENDO, DIAGN [id number] 12/02/14 EXCISION OF RECTUM, ENDO, DIAGN [id number] 12/02/14 GROUP PSYCHOTHERAPY [id number] 06/18/16 Internal Medicine Assmt/Plan - Assessment Assessment: Acute psychosis. Htn. Diabetes. Schizophrenia. Dementia. Dyslipidemia. Chronic right knee pain. Anxiety. Insomnia. OA. Chronic Renal Disease. - Plan Plan: fall precautions continue current plan of care Nutritional Asmnt/Malnutr-PDOC - Dietary Evaluation Malnutrition Findings (Please click <Entered> for more info): Nutritional Asmnt/Malnutrition Start: 08/09/18 15: 13 Text: Status: Complete Freq: Protocol: Document 08/09/18 15:14 [email or web address] (Rec: 08/09/18 15:24 [email or web address]) Nutritional Asmnt/Malnutrition Patient General Information Nutritional Screening Moderate Risk Diagnosis psychosis Pertinent Medical Hx/Surgical Hx DM, HTN, GERD, dementia, HLD, dyslipidemia, schizophrenia, psychosis, anxiety, chronic renal disease Subjective Information Pt seen in dining room, stated NKFA, tolerating diet with no chew/swallow difficulty, good appetite and po intake, confirmed ht and stable wt; diet informed. Likes foods, preferences taken and provided to dietary staff. No n/v per RN. Current Diet Order/ Nutrition Support CCHO, cardiac 2g Na/NCS Patient / S.O Not Indicated Pertinent Medications Maalox, vitamin C/D3, Pepcid, Glucagen, Humalog, Zocor, PRN MOM Pertinent Labs BUN 28, Cr 1.5, Alb 3.9, TF 314 Nutritional Hx/Data Height 5 ft 8 in Height (Calculated Centimeters) 172.7 Current Weight (lbs) 185 lb Weight (Calculated Kilograms) 83.9 Weight (Calculated Grams) 19628.6 [place] Body Weight 154 lb Body Mass Index (BMI) 28.1 Weight Status Overweight GI Symptoms GI Symptoms None Last BM 6/4 Difficult in: None Skin Integrity/Comment: intact Current %PO Good (75-100%) Estimated Nutritional Goals BEE in Kcals: Using Current wt Calories/Kcals/Kg 20-25 Kcals Calculated 8823-0211 Protein: Using Current wt Protein g/k.8-1 Protein Calculated 67-84 Fluid: ml 9136-5665 Nutritional Problem 1. Problem Problem Altered nutrition related labs Etiology dyslipidemia, chronic renal disease Signs/Symptoms: TG 314, BUN/Cr 28/1.5 Intervention/Recommendation Recommendations by RD Increase Calorie Intake PPN/TPN Comments 1. continue cardiac CCHO diet at this time 2. monitor renal labs and need to renally restrict diet 3. Monitor PO intake, wt, labs and skin integrity 4. F/U as moderate risk in 3-5 days Expected Outcomes/Goals Expected Outcomes/Goals 1. PO intake to meet at least 75% of nutritional needs. 2. Wt stability, skin to remain intact, labs to approach WNL. Marii Lambert RD
--- NOTE | 2018-08-10 19:34 | Progress Notes ---
DATE: 08/10/2018 SUBJECTIVE: Chart was reviewed and the patient interviewed. Also discussed the patient's condition with the staff and reviewed records and labs. The patient is still confused. The patient is also still having unpredictable behavior and still easily agitated and still needs close monitoring and redirections. The patient also is still restless. Otherwise, the patient is compliant with taking his medications and no side effects of Seroquel, Aricept or Namenda. ASSESSMENT: The patient is still confused and psychotic. TREATMENT PLAN: Continue to monitor his behavior and his condition closely. Also, continue adjusting psychotropic medications and followup. JOB# [id number]
[2018-08-11] MEDS: INSULIN LISPRO SLIDING SCALE 100 UNITS/ML UNIT SUBQ SCH (06:43)
[2018-08-11] MEDS: Multivitamin w/ Minerals Tab PO SCH (08:40)
--- NOTE | 2018-08-11 10:56 | Discharge Summary ---
DATE OF DISCHARGE: 08/11/2018 THE PATIENT'S AGE: 82. SEX: Male. PHYSICIAN: Dr. Carrasco. FINAL DIAGNOSIS/PRIMARY DIAGNOSIS: Unspecified psychosis. SECONDARY DIAGNOSIS: Dementia, moderate to severe, with psychotic features. REASON FOR HOSPITALIZATION: The patient was admitted to the hospital because of increased agitation and increased irritability. He also was uncooperative with the staff and was actively hallucinating. HOSPITAL COURSE: The patient continued to be in angry and in irritable mood. The patient was started on Namenda and Seroquel and Seroquel dose adjusted to 25 mg twice a day and 25 mg at bedtime. Gradually, the patient's affect was brighter. The patient was less irritable and less agitated. He was calm and able to compliant with taking his medications. The patient also was not psychotic or irritable. The patient was discharged from the hospital. Physical exam of the patient showed no major medical problems. Blood workup was also basically within normal. AFTER-DISCHARGE PLANS: The patient discharged from the hospital to [place] with plans to outpatient treatment in [place]. EXPECTED OUTCOME AFTER DISCHARGE: Fair, if the patient continued to take his psychotropic medications and follow up with discharge plans. [facility]# [id number]
== END 2018-08-11 16:10 | DRG 885 ==
LOC: ER 10:30 → GERO2 12:15
PROVIDERS: ADMIT Psychiatry & Neurology Psychiatry; ATTEND Psychiatry & Neurology Psychiatry
DX: F23 Brief psychotic disorder (principal); N18.9 Chronic kidney disease, unspecified; F03.91 Unspecified dementia, unspecified severity, with behavioral disturbance; K21.9 Gastro-esophageal reflux disease without esophagitis; E78.5 Hyperlipidemia, unspecified; M19.90 Unspecified osteoarthritis, unspecified site; I12.9 Hypertensive chronic kidney disease with stage 1 through stage 4 chronic kidney disease, or unspecified chronic kidney disease; E11.22 Type 2 diabetes mellitus with diabetic chronic kidney disease; F17.210 Nicotine dependence, cigarettes, uncomplicated; M25.561 Pain in right knee; F41.9 Anxiety disorder, unspecified; G47.00 Insomnia, unspecified; Z66 Do not resuscitate
CPT/HCPCS: 36415-UA; 80053-TC; 80061-TC; 80307; 80320-TC; 80329-TC; 81001-TC; 82948-90; 83036-90; 84443-TC; 85025-TC; 86592-TC; 90899; 93005; Z7610